=== PATIENT | male | born 1945 | race Caucasian/White ===

== ENCOUNTER → 2018-06-25 | Outpatient (CLI) | payer MEDICARE, OTHER ==
[~2018-06-25] MED LIST: ASP325T PO; CHOL200018 PO; CYAN50TA PO; FOLI0.4T2 PO; IOHEXOL 350 MG/ML 150 ML (OMNIPAQUE 350) VIAL IV ONE; LYCO15CA PO; NS 100 ML (IVPB) BAG IV ONE; RECEIVED CONTRAST (Hold Metformin) IV SCH; ZINC50TA49 PO
[2018-06-25 10:46] LABS: BUN/CREATININE RATIO 18; CREATININE SERUM 1.07 MG/DL (0.60-1.30); GFR ESTIMATED > 60
--- NOTE | 2018-06-25 11:38 | Diagnostic Imaging Report ---
PROCEDURE: CT angiography of the chest with contrast. TECHNIQUE: Multiple contiguous axial images were obtained through the chest after uneventful bolus administration of intravenous contrast. 2D reconstructed CTA MIP acquisitions were also performed. INDICATION: Aortic stenosis. COMPARISON: Study compared to 08/20/2015. FINDINGS: Ascending aorta measures maximal transverse diameter of 3.7 cm, unchanged. Takeoff of the great vessels and arch as well as descending thoracic aorta are normal in caliber. No mural hemorrhage, dissection, or rupture. There are calcifications of the aortic valvular leaflets as well as of the mitral annulus. Heart size is within normal limits. There is suggestion of some thickening of the left ventricular myocardium. No effusion or pneumothorax. The upper abdominal aorta is patent and nonaneurysmal. 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 No mass, infiltrate, or edema. There is no thoracic lymphadenopathy. No acute chest wall abnormality. IMPRESSION: Stable chronic findings. Dictated by: Dictated on workstation # [id number]
--- NOTE | 2018-06-25 13:15 | Diagnostic Imaging Report ---
EXAMINATION: CTA of the neck with contrast. INDICATION: Aortic stenosis. TECHNIQUE: Routine images of the carotid and vertebral systems were obtained following administration of intravenous contrast. Axial images were taken from the midportion of the skull to the lung apices. Sagittal and coronal reconstructed images were also performed. MIP images were obtained as well. COMPARISON: There are no prior studies available for comparison. FINDINGS: The sagittal images do show that there is an 80-90% stenosis of the proximal internal carotid artery on the right. This appears to be primarily due to soft plaque formation. The length of the stenosis is roughly 8 mm. There is also atherosclerotic plaque and mild narrowing of the proximal internal carotid artery on the left. There is no hemodynamically significant stenosis in this area, however. There is no other hemodynamically significant stenosis of the common or internal carotid arteries. Both vertebral arteries were opacified. The vertebral arteries do appear to be codominant. The intracranial circulation was not visualized in its entirety. Where visualized, there is no abnormality. There is no mass or adenopathy in the neck. The thyroid gland is not enlarged, but there do appear to be several small nodules in each lobe including a 7 mm nodule in the right lobe. These findings may be secondary to a multinodular goiter. Ultrasound would be recommended to better characterize these findings. The lung apices are clear. The bone windows show no evidence for a fracture or for a destructive lesion. IMPRESSION: 1. There is an 80-90% stenosis of the proximal internal carotid artery on the right. This appears to be due to soft plaque formation alone. 2. There is atherosclerotic disease involving the proximal internal carotid artery on the left, but there is no hemodynamically significant stenosis identified. 3. The vertebral arteries are codominant. 4. The intracranial circulation where visualized is unremarkable. 5. The thyroid gland is not enlarged, but the nodules within the gland do raise a question of a multinodular goiter. Ultrasound would be recommended for further study. Dictated by: Dictated on workstation # [id number]
== END ==
LOC: RAD 10:18
PROVIDERS: ATTEND Internal Medicine Cardiovascular Disease
DX: I35.0 Nonrheumatic aortic (valve) stenosis (principal); I65.23 Occlusion and stenosis of bilateral carotid arteries; E04.2 Nontoxic multinodular goiter; I77.810 Thoracic aortic ectasia; I10 Essential (primary) hypertension
CPT/HCPCS: 36415; 70498; 71275; 82565; 84520; 93306

== ENCOUNTER → 2018-07-02 | Outpatient (CLI) | payer MEDICARE, OTHER ==
[~2018-07-02] MED LIST changes: +CATHETER FLUSH 10 ML SYR IV PRN; -IOHEXOL 350 MG/ML 150 ML (OMNIPAQUE 350) VIAL IV ONE; -NS 100 ML (IVPB) BAG IV ONE; -RECEIVED CONTRAST (Hold Metformin) IV SCH; +REGADENOSON 0.4 MG/5 ML SYR (LEXISCAN) IV ONE
[2018-07-02 09:46] VITALS: BP 104/70
[2018-07-02 09:49] VITALS: BP 121/67
--- NOTE | 2018-07-02 14:43 | STRESS TEST ---
DATE OF SERVICE: 07/02/2018 LEXISCAN MYOVIEW STRESS TEST Baseline heart rate is 57. Baseline blood pressure 104/70. Baseline EKG is sinus rhythm with no ischemic changes. In summary, the patient was injected with 10.01 mCi of technetium-99 Myoview and the resting images were obtained. Then, the patient received 0.4 mg of Lexiscan followed by 32.0 mCi of technetium-99 Myoview. Throughout the test, there were no EKG changes. The resting and stress images were reviewed and compared in the short axis, horizontal long axis, and vertical long axis views. Review of the images showed mild apical thinning with no significant ischemia or infarction on SPECT images. SSS is 3, SDS 3, TID value 0.97. On the gated images, the left ventricle appeared to be in normal size with normal contractility. Calculated ejection fraction 52%. CONCLUSION: 1. The patient tolerated Lexiscan well. 2. No ischemia or infarction on SPECT images. 3. Normal left ventricular size with normal contractility. Calculated ejection fraction 52%. Job ID: [id number] DocumentID: [id number] Dictated Date: 07/02/2018 12:15:59 [employer] Date: 07/02/2018 14:42:53 Dictated By: SHARI HAZEL MD
== END ==
LOC: CARD 08:11
PROVIDERS: ATTEND Internal Medicine Cardiovascular Disease
DX: I35.0 Nonrheumatic aortic (valve) stenosis (principal); I10 Essential (primary) hypertension; I77.810 Thoracic aortic ectasia
CPT/HCPCS: 78452; 93017

== ENCOUNTER 2018-07-22 13:35 | Emergency (ER) | payer MEDICARE, OTHER ==
[~2018-07-22] VITALS: Ht 170.2 cm; Wt 85.3 kg
[~2018-07-22 13:35] MED LIST changes: -CATHETER FLUSH 10 ML SYR IV PRN; -REGADENOSON 0.4 MG/5 ML SYR (LEXISCAN) IV ONE
--- NOTE | 2018-07-22 13:40 | NUR ---
Attempted to call patient back. Pt in restroom.
--- OUTSIDE RECORDS SUMMARY | 2018-07-22 13:40 | XMS REPORT | CCD ---
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 Name Role Phone PP Unavailable CCM Unavailable Summary Purpose Interface Exchange Insurance Providers Payer name Policy type / Coverage type Covered democrat ID Effective Begin Date Effective End Date WPS Medicare Part B Medicare Part B [id number] Unknown Unknown Cigna Medicare Part B [id number] Unknown Unknown Family history Mother Diagnosis Age At Onset Arthritis Unknown Cancer Unknown Father Diagnosis Age At Onset Coronary Artery Disease Unknown Alcoholism Unknown Social History Social History Element Codes Description Effective Dates Marital status Unknown Tami 05/01/2018 Number of children Unknown 1 05/01/2018 Employment Unknown 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/[address]: 7471494 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 1964 05/01/[address]: 966620447 Never drinks alcohol 05/01/2018 Allergies, Adverse Reactions, Alerts Substance Reaction Codes Entered Date Inactivated Date Status Tomatoes Unknown 05/01/2018 No Inactive Date Active * NO KNOWN DRUG ALLERGIES Unknown 05/01/2018 No Inactive Date Active Past Medical History Illness Codes Condition Status Onset Date Resolved Date Cardiac murmur, unspecified ICD-9: 785.2 ICD-10: R01.1 Active 05/01/2018 Unknown 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 Active 05/01/2018 Unknown Other specified symptoms and signs involving the circulatory and respiratory systems ICD-9: 785.9 ICD-10: R09.89 Active 05/01/2018 Unknown Personal history of other diseases of the circulatory system ICD-9: V12.59 ICD-10: Z86.79 Active 05/01/2018 Unknown Problems Condition Codes Effective Dates Condition Status Cardiac murmur, unspecified ICD-9: 785.2 ICD-10: R01.1 05/01/2018 Active 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 05/01/2018 Active Other specified symptoms and signs involving the circulatory and respiratory systems ICD-9: 785.9 ICD-10: R09.89 05/01/2018 Active Personal history of other diseases of the circulatory system ICD-9: V12.59 ICD-10: Z86.79 05/01/2018 Active Medications Medication Codes Instructions Start Date Stop Date Status Fill Instructions folic acid 1 mg tablet RxNorm: 459632 1 Tablet(s) PO daily No Start Date Active magnesium oxide 250 mg tablet RxNorm: 927787 1 Tablet(s) PO daily No Start Date Active garlic 1,000 mg capsule RxNorm: 301082 1 Capsule(s) PO daily as needed No Start Date Active zinc 50 mg tablet RxNorm: 1 Tablet(s) PO daily No Start Date Active melatonin 10 mg tablet RxNorm: 1837161 1 Tablet(s) PO daily No Start Date Active Vitamin D3 5,000 unit tablet RxNorm: 655076 1 Tablet(s) PO daily No Start Date Active cyanocobalamin (vit B-12) 5,000 mcg sublingual tablet RxNorm: 272197 1 Tablet(s) SL daily No Start Date Active Medication Administered No Medication Administered data Immunizations No Immunization data Assessments Condition Codes Effective Dates 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 ICD-9: 327.01 05/01/2018 Personal history of other diseases of the circulatory system ICD-10: Z86.79 ICD-9: V12.59 05/01/2018 Other specified symptoms and signs involving the circulatory and respiratory systems ICD-10: R09.89 ICD-9: 785.9 05/01/2018 Cardiac murmur, unspecified ICD-10: R01.1 ICD-9: 785.2 05/01/2018 Reason For Visit Reason For Visit Effective Dates Notes abdominal pain 05/01/2018 Results No Results data Review of Systems System Result Effective Dates Constitutional No recent illness 2017 Constitutional No chills 05/01/2018 Constitutional No fatigue 05/01/2018 Constitutional No fever 05/01/2018 Constitutional No insomnia 05/01/2018 Constitutional No malaise 05/01/2018 Eyes No vision change 05/01/2018 Ears/Nose/Throat/Neck No dental pain 08/2017 Ears/Nose/Throat/Neck No dizziness 2017 Ears/Nose/Throat/Neck No dysphagia 2017 Ears/Nose/Throat/Neck No headache 2017 Ears/Nose/Throat/Neck No hearing loss 08/2017 Ears/Nose/Throat/Neck No nasal allergies 05/01/2018 Ears/Nose/Throat/Neck No sore throat 08/2017 Ears/Nose/Throat/Neck No postnasal drip 05/01/2018 Ears/Nose/Throat/Neck No sinus congestion 05/01/2018 Cardiovascular No chest pain/pressure 08/2017 Cardiovascular No dyspnea 05/01/2018 Cardiovascular No edema 05/01/2018 Cardiovascular No exercise intolerance Cardiovascular No fatigue 05/01/2018 Cardiovascular No near-syncope/dizziness 05/01/2018 Respiratory No chest tightness 2017 Respiratory No cough 05/01/2018 Respiratory No dyspnea 05/01/2018 Respiratory No pedal edema 05/01/2018 Gastrointestinal No abdominal pain 2017 Gastrointestinal No constipation 2017 Gastrointestinal No diarrhea 05/01/2018 Gastrointestinal No gastroesophageal reflux 05/01/2018 Gastrointestinal No nausea 05/01/2018 Gastrointestinal No vomiting 05/01/2018 Genitourinary/Nephrology No dysuria 05/01 Genitourinary/Nephrology No nocturia 08/2017 Genitourinary/Nephrology No urinary incontinence 05/01/2018 Musculoskeletal No stiffness 05/01/2018 Musculoskeletal No swelling 05/01/2018 Musculoskeletal No muscle weakness 2017 Musculoskeletal No myalgias 05/01/2018 Dermatologic No rash 05/01/2018 Dermatologic No sores 05/01/2018 Neurologic No dizziness 05/01/2018 Neurologic No headache 05/01/2018 Neurologic No neck pain 05/01/2018 Neurologic No syncope 05/01/2018 Psychiatric No anxiety 05/01/2018 Psychiatric No depression 05/01/2018 Physical Exam Exam Name System Name Item Name Status Result Effective Dates Notes Full Exam - General 1994 Constitutional general appearance Development: well developed 05/01/2018 None Full Exam - General 1994 Constitutional general appearance Development: appears stated age 1205/01/2018 None Full Exam - General 1994 Constitutional general appearance Hygiene/Attention to Grooming: good hygiene 05/01/2018 None Full Exam - General 1994 Eyes conjunctiva /eyelids Overall: conjunctiva clear 05/01/2018 None Full Exam - General 1994 Eyes conjunctiva /eyelids Overall: cornea clear 05/01/2018 None Full Exam - General 1994 Eyes conjunctiva /eyelids Overall: eyelids normal 05/01/2018 None Full Exam - General 1994 Eyes pupils and irises Overall: pupils equal, round, reactive to light and accomodation 05/01/2018 None Full Exam - General 1994 Ears/Nose/Throat otoscopic exam Overall: external auditory canals clear 05/01/2018 None Full Exam - General 1994 Ears/Nose/Throat otoscopic exam Overall: tympanic membranes clear 05/01/2018 None Full Exam - General 1994 Ears/Nose/Throat lips/teeth/gingiva Overall: benign lips 05/01/2018 None Full Exam - General 1994 Ears/Nose/Throat lips/teeth/gingiva Overall: normal dentition 05/01/2018 None Full Exam - General 1994 Ears/Nose/Throat oral cavity/pharynx/larynx Overall: oral mucosa clear 05/01/2018 None Full Exam - General 1994 Ears/Nose/Throat oral cavity/pharynx/larynx Overall: oropharyngeal mucosa clear 05/01/2018 None Full Exam - General 1994 Ears/Nose/Throat oral cavity/pharynx/larynx Overall: hypopharynx benign 05/01/2018 None Full Exam - General 1994 Ears/Nose/Throat oral cavity/pharynx/larynx Overall: no masses 05/01/2018 None Full Exam - General 1994 Respiratory auscultation Overall: breath sounds clear bilaterally 05/01/2018 None Full Exam - General 1994 Respiratory respiratory effort/rhythm Overall: no retractions 05/01/2018 None Full Exam - General 1994 Respiratory respiratory effort/rhythm Overall: normal rate 05/01/2018 None Full Exam - General 1994 Cardiovascular extremities Overall: no clubbing 05/01/2018 None Full Exam - General 1994 Cardiovascular auscultation of heart Overall: regular rate 05/01/2018 None Full Exam - General 1994 Abdomen abdominal exam Overall: no tenderness 05/01/2018 None Full Exam - General 1994 Abdomen abdominal exam Overall: normal bowel sounds 05/01/2018 None Full Exam - General 1994 Lymphatic neck nodes Overall: anterior cervical chain benign 05/01/2018 None Full Exam - General 1994 Lymphatic neck nodes Overall: posterior cervical chain benign 05/01/2018 None Full Exam - General 1994 Musculoskeletal spine, ribs and pelvis Overall: spine benign 05/01/2018 None Full Exam - General 1994 Musculoskeletal spine, ribs and pelvis Overall: sacroiliac joint benign 05/01/2018 None Full Exam - General 1994 Musculoskeletal spine, ribs and pelvis Overall: good posture 05/01/2018 None Full Exam - General 1994 Musculoskeletal head and neck Overall: head atraumatic 05/01/2018 None Full Exam - General 1994 Musculoskeletal head and neck Overall: cervical spine benign 05/01/2018 None Full Exam - General 1994 Integument inspection of skin Overall: few scattered moles, no gross abnormalities 05/01/2018 None Full Exam - General 1994 Neurologic deep tendon reflexes Overall: deep tendon reflexes intact 05/01/2018 None Full Exam - General 1994 Neurologic cranial nerves Overall: crainial nerves 2 - 12 grossly intact 05/01/2018 None Full Exam - General 1994 Psychiatric orientation/consciousness Overall: oriented to person, place and time 05/01/2018 None Full Exam - General 1994 Psychiatric mood and affect Overall: normal mood and affect 05/01/2018 None Full Exam - General 1994 Cardiovascular auscultation of heart Systolic murmur: holosystolic 05/01/2018 None Full Exam - General 1994 Cardiovascular auscultation of heart Systolic murmur grade: IV/ 05/01/2018 None Full Exam - General 1994 Cardiovascular inspection of carotid pulses Carotid pulse: carotid bruit 05/01/2018 None Procedures No Procedures data Vital Signs Date Vital 05/01/2018 Blood Pressure 1: 138/88 Code : 8480-6 BMI: 29.5 Code : 15736-9 Heart Rate 1 : 74 bpm Height: 5'8" SpO2: 95% Weight: 194 lbs Functional Status No Functional Status data History of Present Illness Symptom Name Status Result Effective Date Notes Quality intermittent 05/01/2018 None Onset of Symptom 3 years ago 05/01/2018 None Pertinent Findings Denies fever 05/01/2018 None Quality intermittent 05/01/2018 heart murmur- reports has had all his life Onset and Resolution ongoing 05/01/2018 None Onset of Symptom Denies _ years ago 05/01/2018 None Onset of Symptom Denies during childhood 05/01/2018 None Frequency of Episodes daily 05/01/2018 None Pertinent Findings Denies dizziness 05/01/2018 None Pertinent Findings Denies dyspnea 05/01/2018 None Pertinent Findings Denies lightheadedness 05/01/2018 None Pertinent Findings Denies syncope 05/01/2018 None Advance Directives No Advance Directive data Encounters Encounter Performer Location Codes Date () OFFICE VISIT, NEW - LEVEL 4 Diagnosis: Personal history of other diseases of the circulatory system[ICD10: Z86.79] Diagnosis: Cardiac murmur, unspecified[ICD10: R01.1] Diagnosis: Other specified symptoms and signs involving the circulatory and respiratory systems[ICD10: R09.89] Diagnosis: Insomnia due to medical condition[ICD10: G47.01] Delmi Can MD, [facility] CPT-4: 58974 05/01/2018 Plan of Care Planned Activity Notes Codes Status Date Visit Plan: Heart murmur - loud - best heart at upper right and left sternal borders - Carotid bruit - I have recommended the following testing: echo, carotid, I also recommend that he has an appt with Dr. Mesa. Insomnia - continue with melatonin. 05/01/2018 Visit Plan: Heart murmur - loud - best heart at upper right and left sternal borders - Carotid bruit - I have recommended the following testing: echo, carotid, I also recommend that he has an appt with Dr. Mesa. Insomnia - continue with melatonin. 05/01/2018 Appointment: Delmi Can WPtel: [address] [place], [place] [phone] New Patient 05/01/2018 Patient Education: Patient Medication Summary Completed 05/01/2018 Care Plan: Comp Metabolic Pending 05/01/2018 Care Plan: Cbc With Differential Pending 05/01/2018 Care Plan: Tsh Pending 05/01/2018 Care Plan: Lipid Pending 05/01/2018 Care Plan: Total Psa Pending 05/01/2018 Care Plan: Referral Order SNOMED-CT : [id number] Pending 05/01/2018 Referral: Yesenia Mesa Referral Appointment Requested Instructions Comment . Heart murmur - loud - best heart at upper right and left sternal borders - Carotid bruit - I have recommended the following testing: echo, carotid, I also recommend that he has an appt with Dr. Mesa. Insomnia - continue with melatonin. . Heart murmur - loud - best heart at upper right and left sternal borders - Carotid bruit - I have recommended the following testing: echo, carotid, I also recommend that he has an appt with Dr. Mesa. Insomnia - continue with melatonin.
--- OUTSIDE RECORDS SUMMARY | 2018-07-22 13:40 | XMS REPORT | Continuity of Care Document ---
Author Author [facility] Organization [facility] Address Unknown Phone Unavailable Allergies Active Description Code Type Severity Reaction Onset Reported/Identified Relationship to Patient Clinical Status Yes No Known Drug Allergies [id number] Drug Allergy Unknown N/A 07/27/2013 Medications There is no data. Problems Date Dx Coded Attending Type Code Diagnosis Diagnosed By 07/27/2013 APARNA OLSEN, LUIZA Pacheco Ot 569.3 RECTAL ANAL HEMORRHAGE 07/29/2013 BARRY OLSEN, TREVIN Mott Ot 530.11 REFLUX ESOPHAGITIS 07/29/2013 TREVIN REDDY MD Ot 530.3 ESOPHAGEAL STRICTURE 07/29/2013 TREVIN REDDY MD Ot 535.40 OTH SPECIFIED GASTRITIS,W/O MENTION OF H 07/29/2013 TREVIN REDDY MD Ot 562.10 DIVERTICULOSIS COLON (W/O MENT OF HEMORR 07/29/2013 TREVIN REDDY MD Ot V12.72 PERSONAL HISTORY OF COLONIC POLYPS 08/01/2013 TREVIN REDDY MD Ot 562.10 DIVERTICULOSIS COLON (W/O MENT OF HEMORR 08/01/2013 TREVIN REDDY MD Ot 569.49 RECTAL ANAL DIS NEC 08/01/2013 TREVIN REDDY MD Ot V16.0 FAMILY HX-GI MALIGNANCY 08/20/2015 TREVIN REDDY MD Ot V72.84 08/21/2015 MATA HAILE Ot I77.810 08/21/2015 MATA HAILE Ot Z13.9 09/09/2015 MATA HAILE Ot I77.810 09/09/2015 MATA HAILE Ot Z13.9 06/21/2018 TREVIN REDDY MD Ot V72.84 EXAM PRE-OPERATIVE NOS 06/21/2018 MATA HAILE Ot 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 06/21/2018 MATA HAILE Ot Z13.9 ENCOUNTER FOR SCREENING, UNSPECIFIED 06/22/2018 BARRY OLSEN, TREVIN S Ot V72.84 EXAM PRE-OPERATIVE NOS 06/22/2018 MATA HAILE Ot 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 06/22/2018 MATA HAILE Ot Z13.9 ENCOUNTER FOR SCREENING, UNSPECIFIED 06/26/2018 SHARI HAZEL MD Ot E04.2 NONTOXIC MULTINODULAR GOITER 06/26/2018 SHARI HAZEL MD Ot I10 ESSENTIAL (PRIMARY) HYPERTENSION 06/26/2018 SHARI HAZEL MD Ot I35.0 NONRHEUMATIC AORTIC (VALVE) STENOSIS 06/26/2018 SHARI HAZEL MD Ot 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 06/26/2018 SHARI HAZEL MD Ot 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 07/04/2018 SHARI HAZEL MD Ot I10 ESSENTIAL (PRIMARY) HYPERTENSION 07/04/2018 SHARI HAZEL MD Ot I35.0 NONRHEUMATIC AORTIC (VALVE) STENOSIS 07/04/2018 SHARI HAZEL MD Ot 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 07/05/2018 BARRY OLSEN, TREVIN S Ot V72.84 EXAM PRE-OPERATIVE NOS 07/05/2018 MATA HAILE Ot 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 07/05/2018 MATA HAILE Ot Z13.9 ENCOUNTER FOR SCREENING, UNSPECIFIED 07/05/2018 SHARI HAZEL MD Ot E04.2 NONTOXIC MULTINODULAR GOITER 07/05/2018 SHARI HAZEL MD Ot I10 ESSENTIAL (PRIMARY) HYPERTENSION 07/05/2018 SHARI HAZEL MD Ot I35.0 NONRHEUMATIC AORTIC (VALVE) STENOSIS 07/05/2018 SHARI HAZEL MD Ot 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 07/05/2018 SHARI HAZEL MD Ot 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 07/05/2018 SHARI HAZEL MD Ot I10 ESSENTIAL (PRIMARY) HYPERTENSION 07/05/2018 SHARI HAZEL MD Ot I35.0 NONRHEUMATIC AORTIC (VALVE) STENOSIS 07/05/2018 SHARI HAZEL MD Ot 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 07/05/2018 BARRY OLSEN, TREVIN S Ot V72.84 EXAM PRE-OPERATIVE NOS 07/05/2018 MATA HAILE Ot 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 07/05/2018 MATA HAILE Ot Z13.9 ENCOUNTER FOR SCREENING, UNSPECIFIED 07/05/2018 SHARI HAZEL MD Ot E04.2 NONTOXIC MULTINODULAR GOITER 07/05/2018 SHARI HAZEL MD Ot I10 ESSENTIAL (PRIMARY) HYPERTENSION 07/05/2018 SHARI HAZEL MD Ot I35.0 NONRHEUMATIC AORTIC (VALVE) STENOSIS 07/05/2018 SHARI HAZEL MD Ot 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 07/05/2018 SHARI HAZEL MD Ot 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 07/05/2018 SHARI HAZEL MD Ot I10 ESSENTIAL (PRIMARY) HYPERTENSION 07/05/2018 SHARI HAZEL MD Ot I35.0 NONRHEUMATIC AORTIC (VALVE) STENOSIS 07/05/2018 SHARI HAZEL MD Ot 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 07/05/2018 SHARI HAZEL MD Ot E04.2 NONTOXIC MULTINODULAR GOITER 07/05/2018 SHARI HAZEL MD Ot I10 ESSENTIAL (PRIMARY) HYPERTENSION 07/05/2018 SHARI HAZEL MD Ot I35.0 NONRHEUMATIC AORTIC (VALVE) STENOSIS 07/05/2018 SHARI HAZEL MD Ot 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 Results Test Result Range [id number] - 06/25/18 10:25 Serum or plasma urea nitrogen measurement (mass/volume) 19 mg/dL 7-18 Serum or plasma creatinine measurement (mass/volume) 1.07 mg/dL 0.60-1.30 Serum or plasma urea nitrogen/creatinine mass ratio 18 NRG Serum or plasma creatinine measurement with calculation of estimated glomerular filtration rate > NRG Encounters ACCT No. Visit Date/Time Discharge Status Pt. Type Provider Facility Loc./Unit Complaint [id number] 07/02/2018 08:11:00 07/02/2018 23:59:59 CLS Outpatient SHARI HAZEL MD [facility] CARD AORTIC STENOSIS,HTN [id number] 06/25/2018 10:18:00 06/25/2018 23:59:59 CLS Outpatient SHARI HAZEL MD [facility] RAD AORTIC STENOSIS [id number] 05/24/2018 15:10:00 05/24/2018 23:59:59 CLS Preadmit SHARI HAZEL MD [facility] RAD CAROTID STENOSIS, BILATERAL [id number] 05/24/2018 14:43:00 05/24/2018 23:59:59 CLS Preadmit SHARI HAZEL MD [facility] CARD CARDIAC MURMUR [id number] 08/20/2015 11:05:00 08/20/2015 23:59:59 CLS Outpatient MATA HAILE [facility] RAD DILATED THORACIC AORTA,SCREENING [id number] 08/01/2013 08:44:00 08/01/2013 11:35:00 DIS Outpatient TREVIN REDDY MD [facility] SD BLOOD IN STOOLS [id number] 07/31/2013 07:16:00 07/31/2013 23:59:59 CLS Outpatient TREVIN REDDY MD [facility] PREOP BLOOD IN STOOLS [id number] 07/29/2013 11:01:00 07/29/2013 15:00:00 DIS Outpatient TREVIN REDDY MD [facility] GI BLEED [id number] 07/27/2013 08:35:00 07/27/2013 10:44:00 DIS Emergency APARNA OLSEN, LUIZA Pacheco [facility] ER BLOODY STOOLS [id number] 04/20/2018 13:12:01 04/20/2018 23:59:59 CLS Outpatient
--- OUTSIDE RECORDS SUMMARY | 2018-07-22 13:40 | XMS REPORT | CCD ---
Author Author [facility]mi [facility] Organization [facility] Address [address] [place] [address] Phone Care Team Providers Care Seamer Elastic Band Name Role Phone PP Unavailable CCM Unavailable Summary Purpose Interface Exchange Insurance Providers Payer name Policy type / Coverage type Covered alliance party ID Effective Begin Date Effective End Date WPS Medicare Part B Medicare Part B [id number] Unknown Unknown Cigna Medicare Part B [id number] Unknown Unknown Family history Mother Diagnosis Age At Onset Arthritis Unknown Cancer Unknown Father Diagnosis Age At Onset Coronary Artery Disease Unknown Alcoholism Unknown Social History Social History Element Codes Description Effective Dates Marital status Unknown Tami 05/01/2018 Number of children Unknown 1 05/01/2018 Employment Unknown 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/[address]: 3576471 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 1965 05/01/[address]: 566588515 Never drinks alcohol 05/01/2018 Allergies, Adverse Reactions, Alerts Substance Reaction Codes Entered Date Inactivated Date Status Tomatoes Unknown 05/01/2018 No Inactive Date Active * NO KNOWN DRUG ALLERGIES Unknown 05/01/2018 No Inactive Date Active Past Medical History Illness Codes Condition Status Onset Date Resolved Date Mixed hyperlipidemia ICD-9: 272.2 ICD-10: E78.2 Active 06/05/2018 Unknown Cardiac murmur, unspecified ICD-9: 785.2 ICD-10: R01.1 Active 05/01/2018 Unknown 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 Active 05/01/2018 Unknown Other specified symptoms and signs involving the circulatory and respiratory systems ICD-9: 785.9 ICD-10: R09.89 Active 05/01/2018 Unknown Personal history of other diseases of the circulatory system ICD-9: V12.59 ICD-10: Z86.79 Active 05/01/2018 Unknown Problems Condition Codes Effective Dates Condition Status Mixed hyperlipidemia ICD-9: 272.2 ICD-10: E78.2 06/05/2018 Active Cardiac murmur, unspecified ICD-9: 785.2 ICD-10: R01.1 05/01/2018 Active 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 05/01/2018 Active Other specified symptoms and signs involving the circulatory and respiratory systems ICD-9: 785.9 ICD-10: R09.89 05/01/2018 Active Personal history of other diseases of the circulatory system ICD-9: V12.59 ICD-10: Z86.79 05/01/2018 Active Medications Medication Codes Instructions Start Date Stop Date Status Fill Instructions pravastatin 20 mg tablet RxNorm: 046288 1 Tablet(s) PO daily 12/31/2018 Active folic acid 1 mg tablet RxNorm: 783647 1 Tablet(s) PO daily No Start Date Active magnesium oxide 250 mg tablet RxNorm: 641885 1 Tablet(s) PO daily No Start Date Active garlic 1,000 mg capsule RxNorm: 922256 1 Capsule(s) PO daily as needed No Start Date Active zinc 50 mg tablet RxNorm: 1 Tablet(s) PO daily No Start Date Active melatonin 10 mg tablet RxNorm: 5771668 1 Tablet(s) PO daily No Start Date Active Vitamin D3 5,000 unit tablet RxNorm: 695293 1 Tablet(s) PO daily No Start Date Active cyanocobalamin (vit B-12) 5,000 mcg sublingual tablet RxNorm: 556186 1 Tablet(s) SL daily No Start Date Active Medication Administered No Medication Administered data Immunizations No Immunization data Assessments Condition Codes Effective Dates Mixed hyperlipidemia ICD-10: E78.2 ICD-9: 272.2 06/05/2018 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 ICD-9: 327.01 05/01/2018 Personal history of other diseases of the circulatory system ICD-10: Z86.79 ICD-9: V12.59 05/01/2018 Other specified symptoms and signs involving the circulatory and respiratory systems ICD-10: R09.89 ICD-9: 785.9 05/01/2018 Cardiac murmur, unspecified ICD-10: R01.1 ICD-9: 785.2 05/01/2018 Reason For Visit Reason For Visit Effective Dates Notes abdominal pain 06/05/2018 abdominal pain 05/01/2018 Results Observation Observation Code Item Item Code Result Date Tsh Ord6 TSH (3rd IS) 1.30 uIU/mL 05/02/2018 Total Psa Ord10 PSA 1.85 ng/mL 05/02/2018 Lipid Ord30 CHOL 219 mg/dL 05/02/2018 Lipid Ord30 HDL 34.0 mg/dl 05/02/2018 Lipid Ord30 TRIG 161 mg/dL 05/02/2018 Lipid Ord30 LDL 153 mg/dL 05/02/2018 Lipid Ord30 C/HDL 6.4 Ratio 05/02/2018 Comp Metabolic Cpr265 NA 140 mEq/L 05/02/2018 Comp Metabolic Npk139 K 4.6 mEq/L 05/02/2018 Comp Metabolic Qid059 CL 105 mEq/L 05/02/2018 Comp Metabolic Wpl675 CO2 27.0 mEq/L 05/02/2018 Comp Metabolic Vbf055 ANION GAP 13 05/02/2018 Comp Metabolic Jbv467 GLUCOSE 117 mg/dL 05/02/2018 Comp Metabolic Mfr368 Creat 1.0 mg/dL 05/02/2018 Comp Metabolic Dge722 eGFR 80 ml/min/1.73m2 05/02/2018 Comp Metabolic Mkq419 BUN 17 mg/dL 05/02/2018 Comp Metabolic Iln100 B/C Ratio 17.3 Ratio 05/02/2018 Comp Metabolic Szj861 CALCIUM 9.6 mg/dL 05/02/2018 Comp Metabolic Xjy162 ALK PHOS 40 U/L 05/02/2018 Comp Metabolic Jjg559 AST(SGOT) 19 U/L 05/02/2018 Comp Metabolic Hfq611 ALT(SGPT) 24 U/L 05/02/2018 Comp Metabolic Bcw222 BILI T 0.7 mg/dL 05/02/2018 Comp Metabolic Kpw496 ALBUMIN 4.2 g/dL 05/02/2018 Comp Metabolic Vje288 TPRO 6.4 g/dL 05/02/2018 Comp Metabolic Xxo631 GLOB 2.2 g/dL 05/02/2018 Comp Metabolic Sou826 A/G Ratio 1.9 Ratio 05/02/2018 Comp Metabolic Soj407 Osmo 282 mOsmo 05/02/2018 Cbc With Differential Ord2 WBC 8.47 K/ul 05/02/2018 Cbc With Differential Ord2 RBC 5.40 M/ul 05/02/2018 Cbc With Differential Ord2 HGB 16.4 g/dl 05/02/2018 Cbc With Differential Ord2 HCT 48.4 % 05/02/2018 Cbc With Differential Ord2 Neut% 69.3 % 05/02/2018 Cbc With Differential Ord2 MCV 89.6 fl 05/02/2018 Cbc With Differential Ord2 Lymph% 23.4 % 05/02/2018 Cbc With Differential Ord2 MCH 30.4 pg 05/02/2018 Cbc With Differential Ord2 [place]% 6.1 % 05/02/2018 Cbc With Differential Ord2 Eos% 0.5 % 05/02/2018 Cbc With Differential Ord2 MCHC 33.9 pg 05/02/2018 Cbc With Differential Ord2 PLT 170 K/ul 05/02/2018 Cbc With Differential Ord2 Baso% 0.7 % 05/02/2018 Cbc With Differential Ord2 Neut ABS# 5.87 K/ul 05/02/2018 Cbc With Differential Ord2 RDW 13.2 % 05/02/2018 Cbc With Differential Ord2 Lymph ABS# 1.98 K/ul 05/02/2018 Cbc With Differential Ord2 [place] ABS# 0.5 K/ul 05/02/2018 Cbc With Differential Ord2 Eos ABS# 0.0 K/ul 05/02/2018 Cbc With Differential Ord2 Baso ABS# 0.1 K/ul 05/02/2018 Review of Systems System Result Effective Dates Constitutional No recent illness 2018 Constitutional No chills 06/05/2018 Constitutional No fatigue 06/05/2018 Constitutional No fever 06/05/2018 Constitutional No insomnia 06/05/2018 Constitutional No malaise 06/05/2018 Eyes No vision change 06/05/2018 Ears/Nose/Throat/Neck No dental pain 12/2018 Ears/Nose/Throat/Neck No dizziness 2018 Ears/Nose/Throat/Neck No dysphagia 2018 Ears/Nose/Throat/Neck No headache 2018 Ears/Nose/Throat/Neck No hearing loss 12/2018 Ears/Nose/Throat/Neck No nasal allergies 06/05/2018 Ears/Nose/Throat/Neck No sore throat 12/2018 Ears/Nose/Throat/Neck No postnasal drip 06/05/2018 Ears/Nose/Throat/Neck No sinus congestion 06/05/2018 Cardiovascular No chest pain/pressure 12/2018 Cardiovascular No dyspnea 06/05/2018 Cardiovascular No edema 06/05/2018 Cardiovascular No exercise intolerance Cardiovascular No fatigue 06/05/2018 Cardiovascular No near-syncope/dizziness 06/05/2018 Respiratory No chest tightness 2018 Respiratory No cough 06/05/2018 Respiratory No dyspnea 06/05/2018 Respiratory No pedal edema 06/05/2018 Gastrointestinal No abdominal pain 2018 Gastrointestinal No constipation 2018 Gastrointestinal No diarrhea 06/05/2018 Gastrointestinal No gastroesophageal reflux 06/05/2018 Gastrointestinal No nausea 06/05/2018 Gastrointestinal No vomiting 06/05/2018 Genitourinary/Nephrology No dysuria 06/05 Genitourinary/Nephrology No nocturia 12/2018 Genitourinary/Nephrology No urinary incontinence 06/05/2018 Musculoskeletal No stiffness 06/05/2018 Musculoskeletal No swelling 06/05/2018 Musculoskeletal No muscle weakness 2018 Musculoskeletal No myalgias 06/05/2018 Dermatologic No rash 06/05/2018 Dermatologic No sores 06/05/2018 Neurologic No dizziness 06/05/2018 Neurologic No headache 06/05/2018 Neurologic No neck pain 06/05/2018 Neurologic No syncope 06/05/2018 Psychiatric No anxiety 06/05/2018 Psychiatric No depression 06/05/2018 Constitutional No recent illness 2017 Constitutional No [...] 1994 Constitutional general appearance Development: well developed 06/05/2018 None Full Exam - General 1994 Constitutional general appearance Development: appears stated age 0106/05/2018 None Full Exam - General 1994 Constitutional general appearance Hygiene/Attention to Grooming: good hygiene 06/05/2018 None Full Exam - General 1994 Eyes conjunctiva /eyelids Overall: conjunctiva clear 06/05/2018 None Full Exam - General 1994 Eyes conjunctiva /eyelids Overall: cornea clear 06/05/2018 None Full Exam - General 1994 Eyes conjunctiva /eyelids Overall: eyelids normal 06/05/2018 None Full Exam - General 1994 Eyes pupils and irises Overall: pupils equal, round, reactive to light and accomodation 06/05/2018 None Full Exam - General 1994 Ears/Nose/Throat otoscopic exam Overall: external auditory canals clear 06/05/2018 None Full Exam - General 1994 Ears/Nose/Throat otoscopic exam Overall: tympanic membranes clear 06/05/2018 None Full Exam - General 1994 Ears/Nose/Throat lips/teeth/gingiva Overall: benign lips 06/05/2018 None Full Exam - General 1994 Ears/Nose/Throat lips/teeth/gingiva Overall: normal dentition 06/05/2018 None Full Exam - General 1994 Ears/Nose/Throat oral cavity/pharynx/larynx Overall: oral mucosa clear 06/05/2018 None Full Exam - General 1995 Ears/Nose/Throat oral cavity/pharynx/larynx Overall: oropharyngeal mucosa clear 06/05/2018 None Full Exam - General 1994 Ears/Nose/Throat oral cavity/pharynx/larynx Overall: hypopharynx benign 06/05/2018 None Full Exam - General 1994 Ears/Nose/Throat oral cavity/pharynx/larynx Overall: no masses 06/05/2018 None Full Exam - General 1994 Respiratory auscultation Overall: breath sounds clear bilaterally 06/05/2018 None Full Exam - General 1994 Respiratory respiratory effort/rhythm Overall: no retractions 06/05/2018 None Full Exam - General 1994 Respiratory respiratory effort/rhythm Overall: normal rate 06/05/2018 None Full Exam - General 1994 Cardiovascular extremities Overall: no clubbing 06/05/2018 None Full Exam - General 1994 Cardiovascular auscultation of heart Overall: regular rate 06/05/2018 None Full Exam - General 1994 Cardiovascular auscultation of heart Systolic murmur: holosystolic 06/05/2018 None Full Exam - General 1994 Cardiovascular auscultation of heart Systolic murmur grade: IV/ 06/05/2018 None Full Exam - General 1994 Abdomen abdominal exam Overall: no tenderness 06/05/2018 None Full Exam - General 1994 Abdomen abdominal exam Overall: normal bowel sounds 06/05/2018 None Full Exam - General 1994 Musculoskeletal spine, ribs and pelvis Overall: spine benign 06/05/2018 None Full Exam - General 1994 Musculoskeletal spine, ribs and pelvis Overall: sacroiliac joint benign 06/05/2018 None Full Exam - General 1994 Musculoskeletal spine, ribs and pelvis Overall: good posture 06/05/2018 None Full Exam - General 1994 Musculoskeletal head and neck Overall: head atraumatic 06/05/2018 None Full Exam - General 1994 Musculoskeletal head and neck Overall: cervical spine benign 06/05/2018 None Full Exam - General 1994 Neurologic cranial nerves Overall: crainial nerves 2 - 12 grossly intact 06/05/2018 None Full Exam - General 1994 Psychiatric orientation/consciousness Overall: oriented to person, place and time 06/05/2018 None Full Exam - General 1994 Psychiatric mood and affect Overall: normal mood and affect 06/05/2018 None Full Exam - General 1994 Constitutional [...] No Procedures data Vital Signs Date Vital 06/05/2018 Blood Pressure 1: 142/66 Code : 8480-6 BMI: 30.0 Code : 16565-9 Heart Rate 1 : 75 bpm Height: 5'8" SpO2: 98% Weight: 197 lbs 05/01/2018 Blood Pressure 1: 138/88 Code : 8480-6 BMI: 29.5 Code : 74682-2 Heart Rate 1 : 74 bpm Height: 5'8" SpO2: 95% Weight: 194 lbs Functional Status No Functional Status data History of Present Illness Symptom Name Status Result Effective Date Notes Quality intermittent 06/05/2018 None Onset of Symptom 3 years ago 06/05/2018 None Pertinent Findings Denies fever 06/05/2018 None Quality intermittent 06/05/2018 heart murmur- reports has had all his life Onset and Resolution ongoing 06/05/2018 None Onset of Symptom Denies _ years ago 06/05/2018 None Onset of Symptom Denies during childhood 06/05/2018 None Frequency of Episodes daily 06/05/2018 None Pertinent Findings Denies dizziness 06/05/2018 None Pertinent Findings Denies dyspnea 06/05/2018 None Pertinent Findings Denies lightheadedness 06/05/2018 None Pertinent Findings Denies syncope 06/05/2018 None Quality intermittent 05/01/2018 None Onset of Symptom [...] data Encounters Encounter Performer Location Codes Date ([id number]) 12019 EST. PATIENT, LEVEL III Diagnosis: Mixed hyperlipidemia[ICD10: E78.2] [facility] CPT-4: 85578 06/05/2018 ([id number]) OFFICE VISIT, NEW - LEVEL 4 Diagnosis: Personal history of other diseases of the circulatory system[ICD10: Z86.79] Diagnosis: Cardiac murmur, unspecified[ICD10: R01.1] Diagnosis: Other specified symptoms and signs involving the circulatory and respiratory systems[ICD10: R09.89] Diagnosis: Insomnia due to medical condition[ICD10: G47.01] [facility] CPT-4: 10274 05/01/2018 Plan of Care Planned Activity Notes Codes Status Date Visit Plan: Hyperlipidemia - pt has been counseled about appropriate diet, exercise, and need for low fat food choices. I have discussed the need for the patient to take medications as prescribed. If the patient has negative side effects from the medication, they are to CALL the office and not abruptly discontinue the medication without discussion with a practitioner in the office. We will check labs in 3-6 months for follow up on the patient's chronic medical problem and to assure normal liver response to medications. pravastatin 20mg daily 06/05/2018 Patient Education: Patient Medication Summary Completed 06/05/2018 Patient Education: Cholesterol Management Completed 06/05/2018 Referral: Yesenia Mesa Referral Completed 05/24/2018 Visit Plan: Heart murmur - loud - [...] with melatonin. 05/01/2018 Appointment: Delmi Can WPtel: [address] [place], [place] [id number] New Patient 05/01/2018 Patient Education: Patient Medication Summary Completed 05/01/2018 Care Plan: Referral Order SNOMED-CT : 579036690 Pending 05/01/2018 Referral: Yesenia Mesa Referral Appointment Requested Instructions Comment . Hyperlipidemia - pt has been counseled about appropriate diet, exercise, and need for low fat food choices. I have discussed the need for the patient to take medications as prescribed. If the patient has negative side effects from the medication, they are to CALL the office and not abruptly discontinue the medication without discussion with a practitioner in the office. We will check labs in 3-6 months for follow up on the patient's chronic medical problem and to assure normal liver response to medications. pravastatin 20mg daily . Heart murmur - loud - best [...]
--- OUTSIDE RECORDS SUMMARY | 2018-07-22 13:40 | XMS REPORT | CCD ---
Author Author [facility] Organization [facility] Address [address] [place] [address] Phone Care Team Providers Care Rewinder Operator Name Role Phone PP Unavailable CCM Unavailable Summary Purpose Interface Exchange Insurance Providers Payer name Policy type / Coverage type Covered libertarian ID Effective Begin Date Effective End Date WPS Medicare Part B Medicare Part B [id number] Unknown Unknown Cigna Medicare Part B [id number] Unknown Unknown Family history Mother Diagnosis Age At Onset Arthritis Unknown Cancer Unknown Father Diagnosis Age At Onset Coronary Artery Disease Unknown Alcoholism Unknown Social History Social History Element Codes Description Effective Dates Marital status Unknown Tami 05/01/2018 Number of children Unknown 1 05/01/2018 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/[address]: 1468620 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 1965 05/01/[address]: 821030507 Never drinks alcohol 05/01/2018 Allergies, Adverse Reactions, [...] Instructions folic acid 1 mg tablet RxNorm: 832671 1 Tablet(s) PO daily No Start Date Active magnesium oxide 250 mg tablet RxNorm: 807682 1 Tablet(s) PO daily No Start Date Active garlic 1,000 mg capsule RxNorm: 224715 1 Capsule(s) PO daily as needed No Start Date Active zinc 50 mg tablet RxNorm: 1 Tablet(s) PO daily No Start Date Active melatonin 10 mg tablet RxNorm: 6863761 1 Tablet(s) PO daily No Start Date Active Vitamin D3 5,000 unit tablet RxNorm: 745013 1 Tablet(s) PO daily No Start Date Active cyanocobalamin (vit B-12) 5,000 mcg sublingual tablet RxNorm: 866098 1 Tablet(s) SL daily No Start Date [...] Code : 8480-6 BMI: 29.5 Code : 31556-7 Heart Rate 1 : 74 bpm Height: [...] to medical condition[ICD10: G47.01] [facility], [facility] CPT-4: 17472 05/01/2018 Plan of Care Planned Activity Notes Codes Status Date Visit Plan: Heart murmur - loud - best heart at upper right and left sternal borders - Carotid bruit - I have recommended the following testing: echo, carotid, I also recommend that he has an appt with Dr. Mesa. Insomnia - continue with melatonin. 05/01/2018 Patient Education: Patient Medication Summary Completed 05/01/2018 Care Plan: Comp Metabolic Pending 05/01/2018 Care Plan: Cbc With Differential Pending 05/01/2018 Care Plan: Tsh Pending 05/01/2018 Care Plan: Lipid Pending 05/01/2018 Care Plan: Total Psa Pending 05/01/2018 Care Plan: Referral Order SNOMED-CT : 788050151 Pending 05/01/2018 Referral: Yesenia Mesa Referral Appointment Requested Instructions Comment . Heart murmur - loud - best heart at upper right and left sternal borders - Carotid bruit - I have recommended the following testing: echo, carotid, I also recommend that he has an appt with Dr. Mesa. Insomnia - continue with melatonin.
--- OUTSIDE RECORDS SUMMARY | 2018-07-22 13:40 | XMS REPORT | CCD ---
Author Author Delmi Can Organization [facility], [facility] Address [address] [place] [address] Phone Care Team Providers Care Nuclear Equipment Operator Name Role Phone PP Unavailable CCM Unavailable Summary Purpose Interface Exchange Insurance Providers Payer name Policy type / Coverage type Covered republican ID Effective Begin Date Effective End Date [employer] Medicare Part B [id number] Unknown Family history Mother Diagnosis Age At Onset Arthritis Unknown Cancer Unknown Father Diagnosis Age At Onset Coronary Artery Disease Unknown Alcoholism Unknown Social History Social History Element Codes Description Effective Dates Marital status Unknown Tami 05/01/2018 Number of children Unknown 1 05/01/2018 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/[address]: 0812079 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 1965 05/01/[address]: 848425875 Never drinks alcohol 05/01/2018 Allergies, Adverse Reactions, [...] Start Date Stop Date Status Fill Instructions trazodone 50 mg tablet RxNorm: 228013 1/2-1 Tablet(s) PO QHS as needed 07/02/2018 08/30/2018 Active trazodone 50 mg tablet RxNorm: 403835 1/2-1 Tablet(s) PO QHS 07/01/2018 Inactive pravastatin 20 mg tablet RxNorm: 447752 1 Tablet(s) PO daily 12/31/2018 Active folic acid 1 mg tablet RxNorm: 534894 1 Tablet(s) PO daily No Start Date Active magnesium oxide 250 mg tablet RxNorm: 155262 1 Tablet(s) PO daily No Start Date Active garlic 1,000 mg capsule RxNorm: 866832 1 Capsule(s) PO daily as needed No Start Date Active zinc 50 mg tablet RxNorm: 1 Tablet(s) PO daily No Start Date Active melatonin 10 mg tablet RxNorm: 8344056 1 Tablet(s) PO daily No Start Date Active Vitamin D3 5,000 unit tablet RxNorm: 223579 1 Tablet(s) PO daily No Start Date Active cyanocobalamin (vit B-12) 5,000 mcg sublingual tablet RxNorm: 103287 1 Tablet(s) SL daily No Start Date [...] Ord30 C/HDL 6.4 Ratio 05/02/2018 Comp Metabolic Pqi610 NA 140 mEq/L 05/02/2018 Comp Metabolic Lfv329 K 4.6 mEq/L 05/02/2018 Comp Metabolic Dgy285 CL 105 mEq/L 05/02/2018 Comp Metabolic Vet918 CO2 27.0 mEq/L 05/02/2018 Comp Metabolic Zxj002 ANION GAP 13 05/02/2018 Comp Metabolic Ypr641 GLUCOSE 117 mg/dL 05/02/2018 Comp Metabolic Qav376 Creat 1.0 mg/dL 05/02/2018 Comp Metabolic Gty581 eGFR 80 ml/min/1.73m2 05/02/2018 Comp Metabolic Elr242 BUN 17 mg/dL 05/02/2018 Comp Metabolic Hdm608 B/C Ratio 17.3 Ratio 05/02/2018 Comp Metabolic Wdo761 CALCIUM 9.6 mg/dL 05/02/2018 Comp Metabolic Lyr903 ALK PHOS 40 U/L 05/02/2018 Comp Metabolic Tsp710 AST(SGOT) 19 U/L 05/02/2018 Comp Metabolic Qti536 ALT(SGPT) 24 U/L 05/02/2018 Comp Metabolic Ohk821 BILI T 0.7 mg/dL 05/02/2018 Comp Metabolic Bzp921 ALBUMIN 4.2 g/dL 05/02/2018 Comp Metabolic Wlb419 TPRO 6.4 g/dL 05/02/2018 Comp Metabolic Hlt168 GLOB 2.2 g/dL 05/02/2018 Comp Metabolic Slj578 A/G Ratio 1.9 Ratio 05/02/2018 Comp Metabolic Fux027 Osmo 282 mOsmo 05/02/2018 Cbc With Differential [...] 30.4 pg 05/02/2018 Cbc With Differential Ord2 [place]% 6.1 % 05/02/2018 Cbc With Differential Ord2 [...] 1.98 K/ul 05/02/2018 Cbc With Differential Ord2 [place] ABS# 0.5 K/ul 05/02/2018 Cbc With Differential [...] accomodation 06/05/2018 None Full Exam - General 1995 Ears/Nose/Throat otoscopic exam Overall: external auditory canals clear 06/05/2018 None Full Exam - General 1995 Ears/Nose/Throat otoscopic exam Overall: tympanic membranes clear 06/05/2018 None Full Exam - General 1995 Ears/Nose/Throat lips/teeth/gingiva Overall: benign lips 06/05/2018 None Full Exam - General 1995 Ears/Nose/Throat lips/teeth/gingiva Overall: normal dentition 06/05/2018 None Full Exam - General 1995 Ears/Nose/Throat oral cavity/pharynx/larynx Overall: oral mucosa clear 06/05/2018 None Full Exam - General 1995 Ears/Nose/Throat oral cavity/pharynx/larynx Overall: oropharyngeal mucosa clear 06/05/2018 None Full Exam - General 1995 Ears/Nose/Throat oral cavity/pharynx/larynx Overall: hypopharynx benign 06/05/2018 [...] Code : 8480-6 BMI: 30.0 Code : 26628-5 Heart Rate 1 : 75 bpm Height: 5'8" SpO2: 98% Weight: 197 lbs 05/01/2018 Blood Pressure 1: 138/88 Code : 8480-6 BMI: 29.5 Code : 77629-9 Heart Rate 1 : 74 bpm Height: [...] data Encounters Encounter Performer Location Codes Date ([id number]) 42539 EST. PATIENT, LEVEL III Diagnosis: Mixed hyperlipidemia[ICD10: E78.2] [facility] CPT-4: 86088 06/05/2018 ([id number]) OFFICE VISIT, NEW - LEVEL 4 Diagnosis: Personal history of other diseases of the circulatory system[ICD10: Z86.79] Diagnosis: Cardiac murmur, unspecified[ICD10: R01.1] Diagnosis: Other specified symptoms and signs involving the circulatory and respiratory systems[ICD10: R09.89] Diagnosis: Insomnia due to medical condition[ICD10: G47.01] [facility] CPT-4: 31382 05/01/2018 Plan of Care Planned Activity Notes [...] response to medications. pravastatin 20mg daily 06/05/2018 Appointment: [facility] WPtel: [address] [place] [address] (15 min) Moderate 06/05/2018 Patient Education: Patient Medication Summary Completed [...] with melatonin. 05/01/2018 Appointment: [facility] WPtel: [facility] New Patient 05/01/2018 Patient Education: Patient Medication Summary Completed 05/01/2018 Care Plan: Referral Order SNOMED-CT : 147832566 Pending 05/01/2018 Referral: Yesenia Mesa Referral Appointment [...]
--- NOTE | 2018-07-22 14:08 | ED GI ---
General Chief Complaint: Rect Problems Stated Complaint: BLOOD IN STOOL History of Present Illness Date Seen by Provider: Jul 22, 2018 Time Seen by Provider: 13:55 Initial Comments 72 -year-old male presents 30 minutes after having a loose stool with acute blood noted. He denies any abdominal pain, nausea or vomiting. He had a similar episode in 2013, followed by a colonoscopy which showed mild diverticulitis. He denies any hemorrhoids. Patient's has a picture of the toilet with the bloody stool and a small sample and his appointment back, bright red blood on her toilet tissue. Timing/Duration: 1/2 Hour Allergies and Home Medications Allergies Coded Allergies: No Known Drug Allergies (Unverified , 07/27/13) Home Medications Aspirin 325 Mg Tab, 325 MG PO PRN, (Reported) Cholecalciferol (Vitamin D3) 2,000 Unit Capsule, 2,000 UNIT PO THREE TIMES WEEKLY, (Reported) Cyanocobalamin 50 Mcg Tablet, 1,000 MCG PO THREE TIMES WEEKLY, (Reported) Folic Acid 0.4 Mg Tablet, 0.4 MG PO THREE TIMES WEEKLY, (Reported) Lycopene 15 Mg Capsule, 15 MG PO THREE TIMES WEEKLY, (Reported) Zinc Amino Acid Chelate 50 Mg Tablet, 50 MG PO THREE TIMES WEEKLY, (Reported) Patient Home Medication List Home Medication List Reviewed: Yes Review of Systems Review of Systems Constitutional: no symptoms reported, see HPI Gastrointestinal: See HPI, Blood Streaked Stools; Denies Diarrhea, Denies Nausea, Denies Poor Appetite, Denies Poor Fluid Intake, Denies Rectal Bleeding All Other Systems Reviewed Negative Unless Noted: Yes Past Lmuvyqr-Nclkmz-Pbonkr Hx Past Med/Social Hx: Reviewed Nursing Past Med/Soc Hx Patient Social History Recent Foreign Travel: No Contact w/Someone Who Travel: No Immunizations Up To Date Date of Influenza Vaccine: Mar 29, 2013 Physical Exam Vital Signs Vital Signs - First Documented 07/22/18 13:45 Temp 97.1 Pulse 91 Resp 14 B/P (MAP) 153/92 (112) Pulse Ox 94 O2 Delivery Room Air Capillary Refill : Height/Weight/BMI Height: 5'8.00" Weight: 200lbs. oz. 90.114610lq; BMI Method:Stated General Appearance: WD/WN, no apparent distress Respiratory: chest non-tender, lungs clear, normal breath sounds Gastrointestinal: normal bowel sounds, non tender, soft; No distended, No guarding, No rebound, No tenderness Neurologic/Psychiatric: no motor/sensory deficits, alert, normal mood/affect, oriented x 3 Skin: normal color, warm/dry Lymphatic: no adenopathy Progress/Results/Core Measures Results/Orders My Orders Vital Signs/I&O 07/22/18 07/22/18 13:45 14:20 Temp 97.1 97.1 Pulse 91 79 Resp 14 14 B/P (MAP) 153/92 (112) 153/86 (108) Pulse Ox 94 94 O2 Delivery Room Air Room Air Progress Progress Note : Time: 13:55 Progress Note Patient seen and evaluated, discussed findings with the patient and his . Recommended clear liquid diet for the next 6-8 hours. To follow-up with Dr. Can or general surgeon if symptoms are not improving or worsen. He recently restarted taking aspirin we'll have him hold aspirin until follow-up. Departure Impression Primary Impression: Hematochezia Disposition: HOME, SELF-CARE Condition: Improved Departure-Patient Inst. Decision time for Depature: 14:10 Referrals: CARMELA CAN MD (PCP/Family) Primary Care Physician Patient Instructions: Bloody Stools, Adult (DC) Add. Discharge Instructions: Clear liquid diet for the next 6-8 hours then bland diet as tolerated. Continue your home medications. Follow-up with Dr. Can if symptoms are not improving or worsen. Consider evaluation by general surgeon for colonoscopy (Manuel Altman or [facility]). Return to emergency department for worsening of symptoms, fever greater than 101 , acute abdominal pain with associated nausea and vomiting, or new concerns. All discharge instructions reviewed with patient and/or family. Voiced understanding. Copy Copies To 1: CARMELA CAN MD, AMY ARNP Jul 22, 2018 14:08
[2018-07-22 14:20] VITALS: BP 153/86
[2018-07-22] MEDS ORDERED: METR500T PO (22:23)
[2018-07-22] MEDS ORDERED: PANT40TA2 PO (22:23)
[2018-07-22] MEDS ORDERED: CIPR-225 PO (22:23)
== END 2018-07-22 14:20 | disposition home or self-care (01) ==
LOC: EDUNIT# 13:35 → ER 13:36
DX: K92.1 Melena (principal); Z79.82 Long term (current) use of aspirin
CPT/HCPCS: 99282

== ENCOUNTER 2018-07-22 19:27 | Emergency (ER) | payer MEDICARE ==
[~2018-07-22] VITALS: Ht 170.2 cm; Wt 85.3 kg
--- OUTSIDE RECORDS SUMMARY | 2018-07-22 19:39 | XMS REPORT | Continuity of Care Document ---
Author Author [facility] Organization [facility] Address Unknown Phone Unavailable Allergies Active Description Code Type Severity Reaction Onset Reported/Identified Relationship to Patient Clinical Status Yes No Known Drug Allergies [id number] Drug Allergy Unknown N/A 07/27/2013 Medications There [...] Ot I65.23 OCCLUSION AND STENOSIS OF BILATERAL [place] 07/05/2018 SHARI HAZEL MD Ot I77.810 THORACIC [...] is no data. Results Test Result Range [id number] - 06/25/18 10:25 Serum or plasma urea nitrogen measurement (mass/volume) 19 mg/dL 7-18 Serum or plasma creatinine measurement (mass/volume) 1.07 mg/dL 0.60-1.30 Serum or plasma urea nitrogen/creatinine mass ratio 18 NRG Serum or plasma creatinine measurement with calculation of estimated glomerular filtration rate > NRG Encounters ACCT No. Visit Date/Time Discharge Status Pt. Type Provider Facility Loc./Unit Complaint [id number] 07/02/2018 08:11:00 07/02/2018 23:59:59 CLS Outpatient SHARI HAZEL MD [facility] CARD AORTIC STENOSIS,HTN [id number] 06/25/2018 10:18:00 06/25/2018 23:59:59 CLS Outpatient SHARI HAZEL MD [facility] RAD AORTIC STENOSIS [id number] 05/24/2018 15:10:00 05/24/2018 23:59:59 CLS Preadmit SHARI HAZEL MD [facility] RAD CAROTID STENOSIS, BILATERAL [id number] 05/24/2018 14:43:00 05/24/2018 23:59:59 CLS Preadmit SHARI HAZEL MD [facility] CARD CARDIAC MURMUR [id number] 08/20/2015 11:05:00 08/20/2015 23:59:59 CLS Outpatient MATA HAILE [facility] RAD DILATED THORACIC AORTA,SCREENING [id number] 08/01/2013 08:44:00 08/01/2013 11:35:00 DIS Outpatient TREVIN REDDY MD [facility] SD BLOOD IN STOOLS [id number] 07/31/2013 07:16:00 07/31/2013 23:59:59 CLS Outpatient TREVIN REDDY MD [facility] PREOP BLOOD IN STOOLS [id number] 07/29/2013 11:01:00 07/29/2013 15:00:00 DIS Outpatient TREVIN REDDY MD [facility] GI BLEED [id number] 07/27/2013 08:35:00 07/27/2013 10:44:00 DIS Emergency APARNA OLSEN, LUIZA Pacheco [facility] ER BLOODY STOOLS [id number] 04/20/2018 13:12:01 04/20/2018 23:59:59 CLS Outpatient
[2018-07-22] MEDS ORDERED: SUCRALFATE 1 GM (CARAFATE) TAB PO ONE (19:45)
[2018-07-22 20:13] LABS: CLARITY,URINE SLIGHTLY CLOUDY; COLOR,URINE AMBER; GLUCOSE, URINE (UA) NEGATIVE (NEGATIVE); KETONES,URINE 2+ (NEGATIVE); LEUKOCYTE ESTERASE ,URINE 1+ (NEGATIVE); NITRITE,URINE NEGATIVE (NEGATIVE); PH,URINE 5 (5-9); PROTEIN,URINE 2+ (NEGATIVE); UROBILINOGEN,URINE 1 MG/DL (NORMAL)
[2018-07-22 20:22] LABS: BASOPHILS % (AUTO) 0 % (0-10); EOSINOPHILS % (AUTO) 0 % (0-10); HEMATOCRIT 42 % (40-54); HEMOGLOBIN 14.7 G/DL (13.3-17.7); LYMPHOCYTES # (AUTO) 1.3 X 10^3 (1.0-4.0); LYMPHOCYTES % (AUTO) 10 % (12-44); MEAN CORPUSCULAR HEMOGLOBIN 30 PG (25-34); MEAN CORPUSCULAR HGB CONC 35 G/DL (32-36); MEAN CORPUSCULAR VOLUME 88 FL (80-99); MEAN PLATELET VOLUME 12.2 FL (7.4-10.4); MONOCYTES # (AUTO) 0.8 X 10^3 (0.0-1.0); MONOCYTES % (AUTO) 6 % (0-12); NEUTROPHILS # (AUTO) 10.7 X 10^3 (1.8-7.8); NEUTROPHILS % (AUTO) 83 % (42-75); PLATELET COUNT 177 10^3/uL (130-400); RED CELL DISTRIBUTION WIDTH 12.5 % (10.0-14.5); WHITE BLOOD COUNT 12.9 10^3/uL (4.3-11.0)
[2018-07-22 20:23] LABS: BACTERIA,URINE TRACE /HPF; BILIRUBIN,URINE 2+ (NEGATIVE); RBC,URINE RARE /HPF; WHITE BLOOD CELL CASTS, URINE RARE /LPF
[2018-07-22 20:41] LABS: ALANINE AMINOTRANSFERASE 16 U/L (0-55); ALBUMIN 3.9 GM/DL (3.2-4.5); ALKALINE PHOSPHATASE 60 U/L (40-136); BILIRUBIN,TOTAL 0.7 MG/DL (0.1-1.0); BUN/CREATININE RATIO 20; CALCIUM 9.4 MG/DL (8.5-10.1); CARBON DIOXIDE 23 MMOL/L (21-32); CHLORIDE 102 MMOL/L (98-107); CREATININE SERUM 1.06 MG/DL (0.60-1.30); GFR ESTIMATED > 60; GLUCOSE 128 MG/DL (70-105); POTASSIUM 4.2 MMOL/L (3.6-5.0); SODIUM 137 MMOL/L (135-145); TOTAL PROTEIN 6.9 GM/DL (6.4-8.2)
[2018-07-22] MEDS ORDERED: DIPHENOXYLATE/ATROPINE 2.5MG/0.025MG (LOMOTIL) TAB PO STA (20:42)
[2018-07-22] MEDS ORDERED: D5 NS 1000 ML IV SOLUTION 1,000 ML IV ONE (20:55)
[2018-07-22] MEDS ORDERED: PANTOPRAZOLE 40 MG (PROTONIX) VIAL IV ONE (21:00)
--- NOTE | 2018-07-22 22:13 | Diagnostic Imaging Report ---
PROCEDURE: CT abdomen and pelvis with contrast. TECHNIQUE: Multiple contiguous axial images were obtained through the abdomen and pelvis after administration of intravenous contrast. INDICATION: Abdominal pain. COMPARISON: None. FINDINGS: Included portions of the lung bases are clear. CT abdomen: Diffuse colonic diverticulosis. Note is made of somewhat thickened appearance of the wall of the sigmoid colon. There is, however, no significant stranding of the pericolic fat surrounding the sigmoid colon. Note is also made of focal abnormal thickened appearance to the wall of the ascending colon (image 38, series 2). There is also moderate stranding of the pericolonic fat within this area. This appears to be epicentered around a diverticulum of the ascending colon. There is no pneumatosis, pneumoperitoneum or portal venous gas. Normal appendix is identified. Small bowel loops are nondistended. Fat-containing umbilical hernia is noted. Ostomy measures 1.9 cm in diameter. Benign-appearing right renal cyst is noted. Otherwise, the kidneys, adrenal glands, spleen, pancreas, and liver have a normal CT appearance. There is no free fluid or loculated air-fluid collection within the abdomen. A few scattered prominent, yet subcentimeter, mesenteric lymph nodes are noted, particularly within the left upper abdominal quadrant. There is also slight stranding of the mesenteric fat in this area. No abnormal retrotracheal adenopathy is seen. There is moderate calcified aortic and arterial atherosclerosis. CT pelvis: Urinary bladder is grossly unremarkable. Prostate is mildly enlarged. It measures 5.9 x 4.5 cm in axial dimension. There is no loculated fluid collection, free fluid or free air within the pelvis. No abnormal lymph nodes are seen. Bony structures show no acute abnormality IMPRESSION: 1. Diffuse colonic diverticulosis with probable acute diverticulitis of the ascending colon. Please note, however, that colonic malignancy may present in a similar manner. Correlation with colonoscopy is recommended when clinically appropriate. 2. Thickened appearance of the wall of the sigmoid colon. This may be on the basis of chronic recurrent diverticulitis. Again, however, underlying malignancy may present in a similar manner. 3. A few scattered prominent appearing, yet subcentimeter mesenteric lymph nodes with mild stranding of the mesenteric fat in the left upper abdominal quadrant. Findings are nonspecific, but can be seen with underlying mesenteric adenitis/panniculitis. Dictated by: Dictated on workstation # [id number]
[2018-07-22] MEDS ORDERED: METR500T PO (22:23)
[2018-07-22] MEDS ORDERED: PANT40TA2 PO (22:23)
[2018-07-22] MEDS ORDERED: CIPR-225 PO (22:23)
[2018-07-22] MEDS ORDERED: CIPROFLOXACIN 500 MG (CIPRO) TABLET PO STA (22:24)
[2018-07-22] MEDS ORDERED: RX-DIPHENO./ATROP. 2.5/0.25 MG (LOMOTIL) TAB PPK#4 PO STA (22:24)
[2018-07-22] MEDS ORDERED: metroNIDAZOLE 500 MG (FLAGYL) TAB PO STA (22:24)
--- NOTE | 2018-07-22 22:24 | ED GI ---
General Chief Complaint: Rect Problems Stated Complaint: BLOOD IN STOOL Nursing Triage Note: Pt seen earlier today in ED for blood in stool. Pt returned stating pt has had 22 episodes of blood in stool since pt left ED earlier today. Pt also reports abdominal pain has resolved since earlier today. Sepsis Screen: No Definite Risk History of Present Illness Date Seen by Provider: Jul 22, 2018 Time Seen by Provider: 20:05 Initial Comments 72-year-old male was seen earlier today here for similar symptoms. He reports continued episodes of GI bleeding, at least 10 episodes.. He denies any abdominal pain. He has maintained clear liquid diet. He denies any nausea or vomiting. Timing/Duration: 12 Hours Severity/Quality: Mild Radiation: No Radiation Modifying Factors: Improves With Defecating Associated Symptoms: Denies Symptoms Allergies and Home Medications Allergies Coded Allergies: No Known Drug Allergies (Unverified , 07/27/13) Home Medications Aspirin 325 Mg Tab, 325 MG PO PRN, (Reported) Cholecalciferol (Vitamin D3) 2,000 Unit Capsule, 2,000 UNIT PO THREE TIMES WEEKLY, (Reported) Ciprofloxacin HCl 500 Mg Tablet, 500 MG PO BID Prescribed by: MARCO DURAN on 07/22/182222 Cyanocobalamin 50 Mcg Tablet, 1,000 MCG PO THREE TIMES WEEKLY, (Reported) Folic Acid 0.4 Mg Tablet, 0.4 MG PO THREE TIMES WEEKLY, (Reported) Lycopene 15 Mg Capsule, 15 MG PO THREE TIMES WEEKLY, (Reported) Metronidazole 500 Mg Tablet, 500 MG PO BID Prescribed by: MARCO DURAN on 07/22/182222 Pantoprazole Sodium 40 Mg Tablet.dr, 40 MG PO DAILY Prescribed by: MARCO DURAN on 07/22/182222 Zinc Amino Acid Chelate 50 Mg Tablet, 50 MG PO THREE TIMES WEEKLY, (Reported) Patient Home Medication List Home Medication List Reviewed: Yes Review of Systems Review of Systems Constitutional: no symptoms reported, see HPI Gastrointestinal: See HPI, Blood Streaked Stools All Other Systems Reviewed Negative Unless Noted: Yes Past Cbysgab-Ficglr-Xnpakf Hx Past Med/Social Hx: Reviewed Nursing Past Med/Soc Hx Patient Social History Alcohol Use: Denies Use Recreational Drug Use: No 2nd Hand Smoke Exposure: No Recent Foreign Travel: No Contact w/Someone Who Travel: No Recent Infectious Disease Expo: No Recent Hopitalizations: No Physical Abuse: No Sexual Abuse: No Immunizations Up To Date Date of Influenza Vaccine: Mar 29, 2013 Seasonal Allergies Seasonal Allergies: No Past Medical History Surgeries: No Respiratory: No Cardiac: Yes (ath. sclerosis, stenosis of aortic vavle) Heart Murmur Neurological: No Gastrointestinal: No Musculoskeletal: No Endocrine: No HEENT: No Cancer: No Psychosocial: No Integumentary: No Physical Exam Vital Signs Vital Signs - First Documented 07/22/18 20:00 Temp 97.2 Pulse 88 Resp 16 B/P (MAP) 140/79 (99) Pulse Ox 96 O2 Delivery Room Air Capillary Refill : Less Than 3 Seconds Height/Weight/BMI Height: 5'7.00" Weight: 188lbs. oz. 85.889600ak; 30.41 BMI Method:Stated General Appearance: WD/WN, no apparent distress HEENT: PERRL/EOMI, normal ENT inspection, TMs normal, pharynx normal Neck: non-tender, full range of motion, supple, normal inspection Respiratory: chest non-tender, lungs clear, normal breath sounds Cardiovascular: normal peripheral pulses, regular rate, rhythm Gastrointestinal: normal bowel sounds, non tender, soft; No guarding, No rebound, No tenderness, No mass, No hepatomegaly, No spleenomegaly Rectal: normal exam, normal rectal tone; No blood streaked stool, No hemorrhoids, No mass, No tenderness Extremities: normal range of motion, non-tender, normal inspection, normal capillary refill Neurologic/Psychiatric: no motor/sensory deficits, alert, normal mood/affect, oriented x 3 Skin: warm/dry, pallor Progress/Results/Core Measures Results/Orders Lab Results Laboratory Tests Test 07/22/18 20:05 07/22/18 20:15 Range/Units Urine Color YFN H Urine Clarity SLIGHTLY CLOUDY Urine pH 5 5-9 Urine Specific [place] 1.025 H 1.016-1.022 Urine Protein 2+ H NEGATIVE Urine Glucose (UA) NEGATIVE NEGATIVE Urine Ketones 2+ H NEGATIVE Urine Nitrite NEGATIVE NEGATIVE Urine Bilirubin 2+ H NEGATIVE Urine Urobilinogen 1 NORMAL MG/DL Urine Leukocyte Esterase 1+ H NEGATIVE Urine RBC (Auto) 1+ H NEGATIVE Urine RBC RARE /HPF Urine WBC 5-10 H /HPF Urine Crystals NONE /LPF Urine Bacteria TRACE /HPF Urine Casts PRESENT /LPF Urine Hyaline Casts 2-5 H /LPF Urine White Blood Cell Casts RARE H /LPF Urine Mucus LARGE H /LPF Urine Culture Indicated YES White Blood Count 12.9 H 4.3-11.0 10^3/uL Red Blood Count 4.84 4.35-5.85 10^6/uL Hemoglobin 14.7 13.3-17.7 G/DL Hematocrit 42 40-54 % Mean Corpuscular Volume 88 80-99 FL Mean Corpuscular Hemoglobin 30 25-34 PG Mean Corpuscular Hemoglobin Concent 35 32-36 G/DL Red Cell Distribution Width 12.5 10.0-14.5 % Platelet Count 177 130-400 10^3/uL Mean Platelet Volume 12.2 H 7.4-10.4 FL Neutrophils (%) (Auto) 83 H 42-75 % Lymphocytes (%) (Auto) 10 L 12-44 % Monocytes (%) (Auto) 6 0-12 % Eosinophils (%) (Auto) 0 0-10 % Basophils (%) (Auto) 0 0-10 % Neutrophils # (Auto) 10.7 H 1.8-7.8 X 10^3 Lymphocytes # (Auto) 1.3 1.0-4.0 X 10^3 Monocytes # (Auto) 0.8 0.0-1.0 X 10^3 Eosinophils # (Auto) 0.0 0.0-0.3 10^3/uL Basophils # (Auto) 0.0 0.0-0.1 10^3/uL Sodium Level 137 135-145 MMOL/L Potassium Level 4.2 3.6-5.0 MMOL/L Chloride Level 102 98-107 MMOL/L Carbon Dioxide Level 23 21-32 MMOL/L Anion Gap 12 5-14 MMOL/L Blood Urea Nitrogen 21 H 7-18 MG/DL Creatinine 1.06 0.60-1.30 MG/DL Estimat Glomerular Filtration Rate > 60 BUN/Creatinine Ratio 20 Glucose Level 128 H 70-105 MG/DL Calcium Level 9.4 8.5-10.1 MG/DL Corrected Calcium 9.5 8.5-10.1 MG/DL Total Bilirubin 0.7 0.1-1.0 MG/DL Aspartate Amino Transf (AST/SGOT) 17 5-34 U/L Alanine Aminotransferase (ALT/SGPT) 16 0-55 U/L Alkaline Phosphatase 60 40-136 U/L Total Protein 6.9 6.4-8.2 GM/DL Albumin 3.9 3.2-4.5 GM/DL My Orders Orders - MARCO DURANP Cbc With Automated Diff (07/22/18 19:33) Comprehensive Metabolic Panel (07/22/18 19:33) Ua Culture If Indicated (07/22/18 19:33) Sucralfate Tablet (Carafate Tablet) (07/22/18 19:45) Urine Culture (07/22/18 20:05) Diphenoxylate/Atropine Tablet (Lomotil T (07/22/18 20:42) Saline Lock/Iv-Start (07/22/18 20:55) D5 Ns 1000 Ml Iv Solution (Dextrose 5%/0 (07/22/18 20:55) Pantoprazole Injection (Protonix Injecti (07/22/18 21:00) Ct Abdomen/Pelvis W (07/22/18 21:00) Metronidazole Tablet (Flagyl Tablet) (07/22/18 22:24) Rx-Diphenoxylate/Atropine (Rx-Lomotil 2. (07/22/18 22:24) Ciprofloxacin Tablet (Cipro Tablet) (07/22/18 22:24) Medications Given in ED Current Medications Medications Dose Ordered Sig/Florinda Route Start Time Stop Time Status Last Admin Dose Admin Dextrose/Sodium Chloride 1,000 ml @ 0 mls/hr Q0M ONCE IV 07/22/18 20:55 07/22/18 20:57 DC 07/22/18 21:26 1,000 MLS/HR Pantoprazole 40 mg ONCE ONCE IV 07/22/18 21:00 07/22/18 21:01 DC 07/22/18 21:26 40 MG Vital Signs/I&O 07/22/18 07/22/18 20:00 22:45 Temp 97.2 97.2 Pulse 88 86 Resp 16 16 B/P (MAP) 140/79 (99) 109/69 (82) Pulse Ox 96 97 O2 Delivery Room Air Room Air Blood Pressure Mean: 99 Progress Progress Note : Time: 20:05 Progress Note Patient seen and evaluated, will obtain labs, IV fluid D5 normal saline 1 L, and Carafate. 2100 hemoglobin and hematocrit stable, in no signs of anemia. The patient has had no episodes of hematochezia since admission. Will obtain CT of the abdomen. 2130 CT evidence of diverticulosis. Patient continues to be stable with no complaints of abdominal pain. Protonix 20 mg IV 2199 discussed findings with patient of CT and labs. Will begin treatment with Cipro and Flagyl. Discharge instructions and return precautions reviewed with the patient. All questions answered. 2214 patient had 2 episodes of hematochezia, since discussing labs. Will continue to monitor the patient. Blood pressure and pulse stable. 2229 discussed recommendation for transfer to [place] as we are currently on diversion. The patient does not wish to have a transfer to [place], although he understands the risks versus benefits that I discussed with him in detail. We will continue to monitor him here, he is taking ice chips. His IV has been discontinued and he does not wish to have it reinserted at this time. He continues to have no abdominal pain. 2299 the patient has had no further GI bleeding. Blood pressure continues to be stable. He is taking ice chips and water with no nausea or vomiting. He denies abdominal pain. 0 blood pressure 112/78, pulse 75. No further hematochezia, abdominal exam soft, nontender, positive bowel sounds 4 quadrants. Patient wishes to return home, if symptoms worsen or return he understands it would require transfer to [place]. The risks versus benefits were discussed at length. Discharge instructions and return precautions reviewed. Diagnostic Imaging Plain Films/CT/US/NM/MRI: abdomen, pelvis Comments NAME: ZULEIKA BENSON MED REC#: [id number] PT STATUS: REG ER : 1945 PHYSICIAN: MARCO DURANP ADMIT DATE: 07/22/18/ER Draft Date of Exam:07/22/18 CT ABDOMEN/PELVIS W PROCEDURE: CT abdomen and pelvis with contrast. TECHNIQUE: Multiple contiguous axial images were obtained through the abdomen and pelvis after administration of intravenous contrast. INDICATION: Abdominal pain. COMPARISON: None. FINDINGS: Included portions of the lung bases are clear. CT abdomen: Diffuse colonic diverticulosis. Note is made of somewhat thickened appearance of the wall of the sigmoid colon. There is, however, no significant stranding of the pericolic fat surrounding the sigmoid colon. Note is also made of focal abnormal thickened appearance to the wall of the ascending colon (image 38, series 2). There is also moderate stranding of the pericolonic fat within this area. This appears to be epicentered around a diverticulum of the ascending colon. There is no pneumatosis, pneumoperitoneum or portal venous gas. Normal appendix is identified. Small bowel loops are nondistended. Fat-containing umbilical hernia is noted. Ostomy measures 1.9 cm in diameter. Benign-appearing right renal cyst is noted. Otherwise, the kidneys, adrenal glands, spleen, pancreas, and liver have a normal CT appearance. There is no free fluid or loculated air-fluid collection within the abdomen. A few scattered prominent, yet subcentimeter, mesenteric lymph nodes are noted, particularly within the left upper abdominal quadrant. There is also slight stranding of the mesenteric fat in this area. No abnormal retrotracheal adenopathy is seen. There is moderate calcified aortic and arterial atherosclerosis. CT pelvis: Urinary bladder is grossly unremarkable. Prostate is mildly enlarged. It measures 5.9 x 4.5 cm in axial dimension. There is no loculated fluid collection, free fluid or free air within the pelvis. No abnormal lymph nodes are seen. Bony structures show no acute abnormality IMPRESSION: 1. Diffuse colonic diverticulosis with probable acute diverticulitis of the ascending colon. Please note, however, that colonic malignancy may present in a similar manner. Correlation with colonoscopy is recommended when clinically appropriate. 2. Thickened appearance of the wall of the sigmoid colon. This may be on the basis of chronic recurrent diverticulitis. Again, however, underlying malignancy may present in a similar manner. 3. A few scattered prominent appearing, yet subcentimeter mesenteric lymph nodes with mild stranding of the mesenteric fat in the left upper abdominal quadrant. Findings are nonspecific, but can be seen with underlying mesenteric adenitis/panniculitis. Dictated on workstation # [id number] Dict: 07/22/182 Trans: 07/22/183 [facility] [id number] Interpreted by: SUSANNE RIBEIRO MD Electronically signed by: Departure Impression Primary Impression: GI bleeding Qualified Codes: K92.2 - Gastrointestinal hemorrhage, unspecified Additional Impression: Diverticulosis of colon without diverticulitis Disposition: 01 HOME, SELF-CARE Condition: Improved Departure-Patient Inst. Decision time for Depature: 22:15 Referrals: CARMELA CAN MD (PCP/Family) Primary Care Physician Patient Instructions: Diverticulosis (DC), Gastrointestinal Bleeding (DC) Add. Discharge Instructions: Continue clear liquid diet. Call Dr. Can tomorrow for appointment and referral to general surgeon for colonoscopy. Take medication as prescribed. Return to emergency department for worsening of symptoms, fever greater than 101 , or new problems or concerns. All discharge instructions reviewed with patient and/or family. Voiced understanding. Scripts Ciprofloxacin HCl (Cipro) 500 Mg Tablet 500 MG PO BID, #14 TAB 0 Refills Prov: MARCO DURAN 07/22/18 Metronidazole (Flagyl) 500 Mg Tablet 500 MG PO BID, #14 TAB 0 Refills Prov: MARCO DURAN 07/22/18 Pantoprazole Sodium (Protonix) 40 Mg Tablet. 40 MG PO DAILY, #20 TAB 0 Refills Prov: MARCO DURAN 07/22/18 Copy Copies To 1: CARMELA CAN MD, AMY ARNP Jul 22, 2018 22:24
[2018-07-22 22:45] VITALS: BP 109/69
--- NOTE | 2018-07-22 22:45 | NUR ---
Pt discharged, however pt went to restroom prior to leaving ED. Upon exiting the restroom, pt reports having three additional episodes of blood and an episode of wretching. Pt denies vomiting and reports being able to keep down cipro and metronidazole. Pt very pale and reports feeling dizzy. Pt taken back to rm 5 and vitals rechecked. BP 121/67, HR 77. O2 95%. Hospital on diversion; Carmita Sanchez discussing with pt and pt's regarding transfer to [place].
== END 2018-07-23 00:35 | disposition home or self-care (01) ==
LOC: EDUNIT# 19:27 → ER 19:28
DX: K57.31 Diverticulosis of large intestine without perforation or abscess with bleeding (principal); Z79.82 Long term (current) use of aspirin
CPT/HCPCS: 36415; 74177; 80053; 81000; 85025; 87088; 96361; 96374

== ENCOUNTER 2018-08-01 05:56 | Outpatient (CLI) | payer MEDICARE ==
[~2018-08-01] VITALS: Ht 170.2 cm; Wt 85.3 kg
[~2018-08-01 05:56] MED LIST changes: +CIPR-225 PO; +METR500T PO; +PANT40TA2 PO
[2018-08-01] MEDS ORDERED: TRAZ-189 PO (14:27)
[2018-08-01] MEDS ORDERED: LISI10TA2 PO (14:27)
[2018-08-01] MEDS ORDERED: LEVO5TAB28 PO (14:27)
[2018-08-01] MEDS ORDERED: CETI10TA17 PO (14:27)
[2018-08-01] MEDS ORDERED: ROSU5TAB12 PO (14:27)
== END 2018-08-01 14:28 | disposition home or self-care (01) ==
LOC: PREOP 05:56
PROVIDERS: ATTEND Surgery
DX: Z01.818 Encounter for other preprocedural examination (principal)

== ENCOUNTER 2018-08-13 09:54 | Day surgery (SDC) | payer MEDICARE, OTHER ==
[~2018-08-13] VITALS: Ht 170.2 cm; Wt 85.3 kg
[~2018-08-13 09:54] MED LIST changes: +CETI10TA17 PO; +LEVO5TAB28 PO; +LISI10TA2 PO; +ROSU5TAB12 PO; +TRAZ-189 PO
--- OUTSIDE RECORDS SUMMARY | 2018-08-13 09:58 | XMS REPORT | CCD ---
Author Author [facility] Organization [facility] Address [address] [place] [address] Phone Care Team Providers Care Blocker Hand Name Role Phone PP Unavailable CCM Unavailable Summary Purpose Interface Exchange Insurance Providers Payer name Policy type / Coverage type Covered republican ID Effective Begin Date Effective End Date [employer] Medicare Part B [id number] Unknown Family history Mother Diagnosis Age At Onset Arthritis Unknown Cancer Unknown Father Diagnosis Age At Onset Coronary Artery Disease Unknown Alcoholism Unknown Social History Social History Element Codes Description Effective Dates Marital status Unknown Tami 05/01/2018 Number of children Unknown 1 05/01/2018 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 1965 05/01/[address]: 279607751 Never drinks alcohol 05/01/2018 Allergies, Adverse Reactions, Alerts Substance Reaction Codes Entered Date Inactivated Date Status Tomatoes Unknown 05/01/2018 No Inactive Date Active * NO KNOWN DRUG ALLERGIES Unknown 05/01/2018 No Inactive Date Active Past Medical History Illness Codes Condition Status Onset Date Resolved Date Diverticulitis of large intestine without perforation or abscess without bleeding ICD-9: 562.11 ICD-10: K57.32 Active 07/23/2018 Unknown Melena ICD-9: 578.1 ICD-10: K92.1 Active 07/23/2018 Unknown Mixed hyperlipidemia ICD-9: 272.2 ICD-10: E78.2 Active [...] Problems Condition Codes Effective Dates Condition Status Diverticulitis of large intestine without perforation or abscess without bleeding ICD-9: 562.11 ICD-10: K57.32 07/23/2018 Active Melena ICD-9: 578.1 ICD-10: K92.1 07/23/2018 Active Mixed hyperlipidemia ICD-9: 272.2 ICD-10: E78.2 06/05/2018 [...] Fill Instructions trazodone 50 mg tablet RxNorm: 662328 1/2-1 Tablet(s) PO QHS as needed 07/02/2018 08/30/2018 Active trazodone 50 mg tablet RxNorm: 695652 1/2-1 Tablet(s) PO QHS 07/01/2018 Inactive pravastatin 20 mg tablet RxNorm: 513314 1 Tablet(s) PO daily 07/03/2018 Inactive folic acid 1 mg tablet RxNorm: 755057 1 Tablet(s) PO daily No Start Date Active magnesium oxide 250 mg tablet RxNorm: 562242 1 Tablet(s) PO daily No Start Date Active garlic 1,000 mg capsule RxNorm: 363963 1 Capsule(s) PO daily as needed No Start Date Active zinc 50 mg tablet RxNorm: 1 Tablet(s) PO daily No Start Date Active melatonin 10 mg tablet RxNorm: 2640862 1 Tablet(s) PO daily No Start Date Active Vitamin D3 5,000 unit tablet RxNorm: 891241 1 Tablet(s) PO daily No Start Date Active cyanocobalamin (vit B-12) 5,000 mcg sublingual tablet RxNorm: 944476 1 Tablet(s) SL daily No Start Date Active Medication Administered No Medication Administered data Immunizations No Immunization data Assessments Condition Codes Effective Dates Melena ICD-10: K92.1 ICD-9: 578.1 07/23/2018 Diverticulitis of large intestine without perforation or abscess without bleeding ICD-10: K57.32 ICD-9: 562.11 07/23/2018 Mixed hyperlipidemia ICD-10: E78.2 ICD-9: 272.2 06/05/2018 Other specified symptoms and signs involving the circulatory and respiratory systems ICD-10: R09.89 ICD-9: 785.9 05/01/2018 Cardiac murmur, unspecified ICD-10: R01.1 ICD-9: 785.2 05/01/2018 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 ICD-9: 327.01 05/01/2018 Personal history of other diseases of the circulatory system ICD-10: Z86.79 ICD-9: V12.59 05/01/2018 Reason For Visit Reason For Visit Effective Dates Notes hematochezia 07/23/2018 abdominal pain 06/05/2018 abdominal pain 05/01/2018 Results Observation Observation Code Item Item Code Result Date Hgb & Hct Ord65 HGB 11.8 g/dl 07/27/2018 Hgb & Hct Ord65 HCT 35.3 % 07/27/2018 Tsh Ord6 TSH (3rd IS) 1.30 uIU/mL 05/02/2018 Total Psa Ord10 PSA 1.85 ng/mL 05/02/2018 Lipid Ord30 CHOL 219 mg/dL 05/02/2018 Lipid Ord30 HDL 34.0 mg/dl 05/02/2018 Lipid Ord30 TRIG 161 mg/dL 05/02/2018 Lipid Ord30 LDL 153 mg/dL 05/02/2018 Lipid Ord30 C/HDL 6.4 Ratio 05/02/2018 Comp Metabolic Tyi122 NA 140 mEq/L 05/02/2018 Comp Metabolic Okz856 K 4.6 mEq/L 05/02/2018 Comp Metabolic Vhc641 CL 105 mEq/L 05/02/2018 Comp Metabolic Mgu891 CO2 27.0 mEq/L 05/02/2018 Comp Metabolic Ldr172 ANION GAP 13 05/02/2018 Comp Metabolic Igq571 GLUCOSE 117 mg/dL 05/02/2018 Comp Metabolic Woc489 Creat 1.0 mg/dL 05/02/2018 Comp Metabolic Gap802 eGFR 80 ml/min/1.73m2 05/02/2018 Comp Metabolic Unb843 BUN 17 mg/dL 05/02/2018 Comp Metabolic Kiy276 B/C Ratio 17.3 Ratio 05/02/2018 Comp Metabolic Neh846 CALCIUM 9.6 mg/dL 05/02/2018 Comp Metabolic Zik908 ALK PHOS 40 U/L 05/02/2018 Comp Metabolic Cff496 AST(SGOT) 19 U/L 05/02/2018 Comp Metabolic Opp912 ALT(SGPT) 24 U/L 05/02/2018 Comp Metabolic Men782 BILI T 0.7 mg/dL 05/02/2018 Comp Metabolic Qrn728 ALBUMIN 4.2 g/dL 05/02/2018 Comp Metabolic Nlc691 TPRO 6.4 g/dL 05/02/2018 Comp Metabolic Wbj948 GLOB 2.2 g/dL 05/02/2018 Comp Metabolic Axp984 A/G Ratio 1.9 Ratio 05/02/2018 Comp Metabolic Dlg885 Osmo 282 mOsmo 05/02/2018 Cbc With Differential [...] 30.4 pg 05/02/2018 Cbc With Differential Ord2 [place]% 6.1 % 05/02/2018 Cbc With Differential Ord2 MCHC 33.9 pg 05/02/2018 Cbc With Differential Ord2 Eos% 0.5 % 05/02/2018 Cbc With Differential Ord2 PLT 170 K/ul 05/02/2018 Cbc With Differential Ord2 Baso% 0.7 % 05/02/2018 Cbc With Differential Ord2 RDW 13.2 % 05/02/2018 Cbc With Differential Ord2 Neut ABS# 5.87 K/ul 05/02/2018 Cbc With Differential Ord2 Lymph ABS# 1.98 K/ul 05/02/2018 Cbc With Differential Ord2 [place] ABS# 0.5 K/ul 05/02/2018 Cbc With Differential Ord2 Eos ABS# 0.0 K/ul 05/02/2018 Cbc With Differential Ord2 Baso ABS# 0.1 K/ul 05/02/2018 Review of Systems System Result Effective Dates Constitutional recent illness 07/23/2018 Constitutional No chills 07/23/2018 Constitutional No diaphoresis 07/23/2018 Constitutional No fever 07/23/2018 Eyes No eye erythema 07/23/2018 Ears/Nose/Throat/Neck No nasal discharge 07/23/2018 Cardiovascular No chest pain/pressure Cardiovascular No dyspnea 07/23/2018 Respiratory No cough 07/23/2018 Respiratory No chest congestion 2018 Gastrointestinal abdominal pain 2018 Gastrointestinal No constipation 2018 Gastrointestinal diarrhea 07/23/2018 Gastrointestinal hematochezia 07/23/2018 Gastrointestinal melena 07/23/2018 Gastrointestinal No vomiting 07/23/2018 Gastrointestinal No nausea 07/23/2018 Gastrointestinal No hematemesis 2018 Gastrointestinal gastroesophageal reflux 07/23/2018 Musculoskeletal No joint complaint 2018 Dermatologic No rash 07/23/2018 Neurologic No alteration of consciousness 07/23/2018 Neurologic No mental status change 2018 Constitutional No recent illness 2018 Constitutional No [...] Exam - General 1994 Constitutional general appearance Overall: well developed 07/23/2018 None Full Exam - General 1994 Constitutional general appearance Overall: in no acute distress 07/23/2018 None Full Exam - General 1994 Constitutional general appearance Overall: well nourished 07/23/2018 None Full Exam - General 1994 Eyes conjunctiva /eyelids Overall: eyelids normal 07/23/2018 None Full Exam - General 1994 Eyes conjunctiva /eyelids Overall: cornea clear 07/23/2018 None Full Exam - General 1994 Eyes conjunctiva /eyelids Overall: conjunctiva clear 07/23/2018 None Full Exam - General 1994 Ears/Nose/Throat lips/teeth/gingiva Overall: benign lips 07/23/2018 None Full Exam - General 1994 Ears/Nose/Throat oral cavity/pharynx/larynx Overall: oral mucosa clear 07/23/2018 None Full Exam - General 1994 Respiratory respiratory effort/rhythm Overall: normal rate 07/23/2018 None Full Exam - General 1994 Respiratory respiratory effort/rhythm Overall: no retractions 07/23/2018 None Full Exam - General 1994 Respiratory auscultation Overall: breath sounds clear bilaterally 07/23/2018 None Full Exam - General 1994 Cardiovascular auscultation of heart Overall: normal heart sounds 07/23/2018 None Full Exam - General 1994 Cardiovascular auscultation of heart Overall: regular rate 07/23/2018 None Full Exam - General 1994 Musculoskeletal head and neck Overall: head atraumatic 07/23/2018 None Full Exam - General 1994 Neurologic cranial nerves Overall: crainial nerves 2 - 12 grossly intact 07/23/2018 None Full Exam - General 1994 Psychiatric orientation/consciousness Overall: oriented to person, place and time 07/23/2018 None Full Exam - General 1994 Psychiatric mood and affect Overall: normal mood and affect 07/23/2018 None Full Exam - General 1994 Constitutional [...] No Procedures data Vital Signs Date Vital 07/23/2018 Blood Pressure 1: 110/56 Code : 8480-6 BMI: 28.6 Code : 58382-9 Heart Rate 1 : 85 bpm Height: 5'8" SpO2: 97% Weight: 188 lbs 06/05/2018 Blood Pressure 1: 142/66 Code : 8480-6 BMI: 30.0 Code : 13642-7 Heart Rate 1 : 75 bpm Height: 5'8" SpO2: 98% Weight: 197 lbs 05/01/2018 Blood Pressure 1: 138/88 Code : 8480-6 BMI: 29.5 Code : 51793-7 Heart Rate 1 : 74 bpm Height: 5'8" SpO2: 95% Weight: 194 lbs Functional Status No Functional Status data History of Present Illness Symptom Name Status Result Effective Date Notes Quality constant None Onset and Resolution sudden in onset 07/23/2018 None Onset of Symptom 3 days ago 07/23/2018 None Quality intermittent 06/05/2018 None Onset of Symptom [...] data Encounters Encounter Performer Location Codes Date 57707 EST. PATIENT, LEVEL III Diagnosis: Melena[ICD10: K92.1] Diagnosis: Diverticulitis of large intestine without perforation or abscess without bleeding[ICD10: K57.32] [facility] CPT-4: 05025 07/23/2018 ([id number]) 20588 EST. PATIENT, LEVEL III Diagnosis: Mixed hyperlipidemia[ICD10: E78.2] [facility] CPT-4: 81505 06/05/2018 ([id number]) OFFICE VISIT, NEW - LEVEL 4 Diagnosis: Personal history of other diseases of the circulatory system[ICD10: Z86.79] Diagnosis: Cardiac murmur, unspecified[ICD10: R01.1] Diagnosis: Other specified symptoms and signs involving the circulatory and respiratory systems[ICD10: R09.89] Diagnosis: Insomnia due to medical condition[ICD10: G47.01] [facility] CPT-4: 35127 05/01/2018 Plan of Care Planned Activity Notes Codes Status Date Visit Plan: Diverticulitis - rx for antibiotic sent to pt' s pharmacy - pt advised to avoid seeds, nuts, popcorn, or any other food which has been proven to upset the pt's stomach. Melena - will refer to Dr. Gonzalez for EGD/Colonoscopy 07/23/2018 Appointment: Dina Mehta WPtel: [address] [place] [address] (15 min) Moderate 07/23/2018 Patient Education: Patient Medication Summary Completed 07/23/2018 Care Plan: Referral Order SNOMED-CT : 407928741 Pending 07/23/2018 Visit Plan: Hyperlipidemia - pt has been [...] 20mg daily 06/05/2018 Appointment: Delmi Can WPtel: [address] [place], [place] [address] (15 min) Moderate 06/05/2018 Patient Education: Patient [...] with melatonin. 05/01/2018 Appointment: Delmi Can WPtel: [facility] [place] New Patient 05/01/2018 Patient Education: Patient Medication Summary Completed 05/01/2018 Care Plan: Referral Order SNOMED-CT : 058960421 Pending 05/01/2018 Referral: Yesenia Mesa Referral Appointment Requested Referral: Dc Gonzalez Referral Appointment Requested Instructions Comment stay on both antibiotic and the protonix Dr. Gonzalez office will call you with an appointment. Diverticulitis - rx for antibiotic sent to pt's pharmacy - pt advised to avoid seeds, nuts, popcorn, or any other food which has been proven to upset the pt's stomach. Melena - will refer to Dr. Gonzalez for EGD/Colonoscopy . Hyperlipidemia - pt has been counseled [...]
--- OUTSIDE RECORDS SUMMARY | 2018-08-13 09:59 | XMS REPORT | CCD ---
Author Author [facility] Organization [facility] Address [address] [place] [address] Phone Care Team Providers Care Field Mechanic Name Role Phone PP Unavailable CCM Unavailable Summary Purpose Interface Exchange Insurance Providers Payer name Policy type / Coverage type Covered constitution party ID Effective Begin Date Effective End Date [employer] Medicare Part B [id number] Unknown Family history Mother Diagnosis Age At Onset Arthritis Unknown Cancer Unknown Father Diagnosis Age At Onset Coronary Artery Disease Unknown Alcoholism Unknown Social History Social History Element Codes Description Effective Dates Marital status Unknown Tami 05/01/2018 Number of children Unknown 1 05/01/2018 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/[address]: 8736685 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 1965 05/01/[address]: 198055436 Never drinks alcohol 05/01/2018 Allergies, Adverse Reactions, [...] Fill Instructions trazodone 50 mg tablet RxNorm: 777545 1/2-1 Tablet(s) PO QHS as needed 07/02/2018 08/30/2018 Active trazodone 50 mg tablet RxNorm: 958938 1/2-1 Tablet(s) PO QHS 07/01/2018 Inactive pravastatin 20 mg tablet RxNorm: 836327 1 Tablet(s) PO daily 07/03/2018 Inactive folic acid 1 mg tablet RxNorm: 032840 1 Tablet(s) PO daily No Start Date Active magnesium oxide 250 mg tablet RxNorm: 670941 1 Tablet(s) PO daily No Start Date Active garlic 1,000 mg capsule RxNorm: 255573 1 Capsule(s) PO daily as needed No Start Date Active zinc 50 mg tablet RxNorm: 1 Tablet(s) PO daily No Start Date Active melatonin 10 mg tablet RxNorm: 0081942 1 Tablet(s) PO daily No Start Date Active Vitamin D3 5,000 unit tablet RxNorm: 985826 1 Tablet(s) PO daily No Start Date Active cyanocobalamin (vit B-12) 5,000 mcg sublingual tablet RxNorm: 587426 1 Tablet(s) SL daily No Start Date Active Medication Administered No Medication Administered data Immunizations No Immunization data Assessments Condition Codes Effective Dates Melena ICD-10: K92.1 ICD-9: 578.1 07/23/2018 Diverticulitis of large intestine without perforation or abscess without bleeding ICD-10: K57.32 ICD-9: 562.11 07/23/2018 Mixed hyperlipidemia ICD-10: E78.2 ICD-9: 272.2 06/05/2018 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 ICD-9: 327.01 05/01/2018 Other specified symptoms and signs involving the circulatory and respiratory systems ICD-10: R09.89 ICD-9: 785.9 05/01/2018 Cardiac murmur, unspecified ICD-10: R01.1 ICD-9: 785.2 05/01/2018 Personal history of other diseases of [...] Ord30 C/HDL 6.4 Ratio 05/02/2018 Comp Metabolic Fzu622 NA 140 mEq/L 05/02/2018 Comp Metabolic Cba521 K 4.6 mEq/L 05/02/2018 Comp Metabolic Kxm061 CL 105 mEq/L 05/02/2018 Comp Metabolic Ibk395 CO2 27.0 mEq/L 05/02/2018 Comp Metabolic Oxi090 ANION GAP 13 05/02/2018 Comp Metabolic Qod174 GLUCOSE 117 mg/dL 05/02/2018 Comp Metabolic Ynz495 Creat 1.0 mg/dL 05/02/2018 Comp Metabolic Ger047 eGFR 80 ml/min/1.73m2 05/02/2018 Comp Metabolic Pgb600 BUN 17 mg/dL 05/02/2018 Comp Metabolic Lko644 B/C Ratio 17.3 Ratio 05/02/2018 Comp Metabolic Fbw278 CALCIUM 9.6 mg/dL 05/02/2018 Comp Metabolic Tgq716 ALK PHOS 40 U/L 05/02/2018 Comp Metabolic Vsk558 AST(SGOT) 19 U/L 05/02/2018 Comp Metabolic Xnu908 ALT(SGPT) 24 U/L 05/02/2018 Comp Metabolic Oiv337 BILI T 0.7 mg/dL 05/02/2018 Comp Metabolic Kak968 ALBUMIN 4.2 g/dL 05/02/2018 Comp Metabolic Hfh401 TPRO 6.4 g/dL 05/02/2018 Comp Metabolic Hhg996 GLOB 2.2 g/dL 05/02/2018 Comp Metabolic Dmc498 A/G Ratio 1.9 Ratio 05/02/2018 Comp Metabolic Dwt385 Osmo 282 mOsmo 05/02/2018 Cbc With Differential [...] 30.4 pg 05/02/2018 Cbc With Differential Ord2 [place]% 6.1 % 05/02/2018 Cbc With Differential Ord2 [...] 1.98 K/ul 05/02/2018 Cbc With Differential Ord2 [place] ABS# 0.5 K/ul 05/02/2018 Cbc With Differential [...] affect 07/23/2018 None Full Exam - General 1995 Constitutional general appearance Development: well developed 06/05/2018 [...] Code : 8480-6 BMI: 28.6 Code : 38498-0 Heart Rate 1 : 85 bpm Height: 5'8" SpO2: 97% Weight: 188 lbs 06/05/2018 Blood Pressure 1: 142/66 Code : 8480-6 BMI: 30.0 Code : 51791-8 Heart Rate 1 : 75 bpm Height: 5'8" SpO2: 98% Weight: 197 lbs 05/01/2018 Blood Pressure 1: 138/88 Code : 8480-6 BMI: 29.5 Code : 56323-9 Heart Rate 1 : 74 bpm Height: [...] data Encounters Encounter Performer Location Codes Date 22922 EST. PATIENT, LEVEL III Diagnosis: Melena[ICD10: K92.1] Diagnosis: Diverticulitis of large intestine without perforation or abscess without bleeding[ICD10: K57.32] [facility] CPT-4: 39422 07/23/2018 ([id number]) 73390 EST. PATIENT, LEVEL III Diagnosis: Mixed hyperlipidemia[ICD10: E78.2] [facility] CPT-4: 72565 06/05/2018 ([id number]) OFFICE VISIT, NEW - LEVEL 4 Diagnosis: Personal history of other diseases of the circulatory system[ICD10: Z86.79] Diagnosis: Cardiac murmur, unspecified[ICD10: R01.1] Diagnosis: Other specified symptoms and signs involving the circulatory and respiratory systems[ICD10: R09.89] Diagnosis: Insomnia due to medical condition[ICD10: G47.01] [facility] CPT-4: 13450 05/01/2018 Plan of Care Planned Activity Notes Codes Status Date Visit Plan: Diverticulitis - rx for antibiotic sent to pt' s pharmacy - pt advised to avoid seeds, nuts, popcorn, or any other food which has been proven to upset the pt's stomach. Melena - will refer to Dr. Gonzalez for EGD/Colonoscopy 07/23/2018 Appointment: Dina Mehta WPtel: [address] [place], [place] [address] (15 min) Moderate 07/23/2018 Patient Education: Patient Medication Summary Completed 07/23/2018 Care Plan: Referral Order SNOMED-CT : 004074327 Pending 07/23/2018 Visit Plan: Hyperlipidemia - pt [...] 20mg daily 06/05/2018 Appointment: Delmi Can WPtel: [facility] (15 min) Moderate 06/05/2018 Patient Education: Patient [...] with melatonin. 05/01/2018 Appointment: Delmi Can WPtel: [facility] [place] New Patient 05/01/2018 Patient Education: Patient Medication Summary Completed 05/01/2018 Care Plan: Referral Order SNOMED-CT : 585274434 Pending 05/01/2018 Referral: Yesenia Mesa Referral Appointment [...]
--- OUTSIDE RECORDS SUMMARY | 2018-08-13 09:59 | XMS REPORT | CCD ---
Author Author [facility] Organization [facility] Address [address] [place] [address] Phone Care Team Providers Care Cooker Soda Name Role Phone PP Unavailable CCM Unavailable Summary Purpose Interface Exchange Insurance Providers Payer name Policy type / Coverage type Covered democrat ID Effective Begin Date Effective End Date [employer]na [employer] Medicare Part B [id number] Unknown Family history Mother Diagnosis Age At Onset Arthritis Unknown Cancer Unknown Father Diagnosis Age At Onset Coronary Artery Disease Unknown Alcoholism Unknown Social History Social History Element Codes Description Effective Dates Marital status Unknown Tami 05/01/2018 Number of children Unknown 1 05/01/2018 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/[address]: 2495311 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 1965 05/01/[address]: 792999583 Never drinks alcohol 05/01/2018 Allergies, Adverse Reactions, [...] Fill Instructions trazodone 50 mg tablet RxNorm: 902358 1/2-1 Tablet(s) PO QHS as needed 07/02/2018 08/30/2018 Active trazodone 50 mg tablet RxNorm: 295539 1/2-1 Tablet(s) PO QHS 07/01/2018 Inactive pravastatin 20 mg tablet RxNorm: 534612 1 Tablet(s) PO daily 07/03/2018 Inactive folic acid 1 mg tablet RxNorm: 056033 1 Tablet(s) PO daily No Start Date Active magnesium oxide 250 mg tablet RxNorm: 781294 1 Tablet(s) PO daily No Start Date Active garlic 1,000 mg capsule RxNorm: 081168 1 Capsule(s) PO daily as needed No Start Date Active zinc 50 mg tablet RxNorm: 1 Tablet(s) PO daily No Start Date Active melatonin 10 mg tablet RxNorm: 6710508 1 Tablet(s) PO daily No Start Date Active Vitamin D3 5,000 unit tablet RxNorm: 247354 1 Tablet(s) PO daily No Start Date Active cyanocobalamin (vit B-12) 5,000 mcg sublingual tablet RxNorm: 697173 1 Tablet(s) SL daily No Start Date [...] Ord30 C/HDL 6.4 Ratio 05/02/2018 Comp Metabolic Ckr664 NA 140 mEq/L 05/02/2018 Comp Metabolic Ayt919 K 4.6 mEq/L 05/02/2018 Comp Metabolic Fij215 CL 105 mEq/L 05/02/2018 Comp Metabolic Qkw429 CO2 27.0 mEq/L 05/02/2018 Comp Metabolic Qxh760 ANION GAP 13 05/02/2018 Comp Metabolic Eeb056 GLUCOSE 117 mg/dL 05/02/2018 Comp Metabolic Oke146 Creat 1.0 mg/dL 05/02/2018 Comp Metabolic Lug538 eGFR 80 ml/min/1.73m2 05/02/2018 Comp Metabolic Lzl340 BUN 17 mg/dL 05/02/2018 Comp Metabolic Dby458 B/C Ratio 17.3 Ratio 05/02/2018 Comp Metabolic Uiz407 CALCIUM 9.6 mg/dL 05/02/2018 Comp Metabolic Fzh373 ALK PHOS 40 U/L 05/02/2018 Comp Metabolic Jzz128 AST(SGOT) 19 U/L 05/02/2018 Comp Metabolic Ntz541 ALT(SGPT) 24 U/L 05/02/2018 Comp Metabolic Bgn728 BILI T 0.7 mg/dL 05/02/2018 Comp Metabolic Atk757 ALBUMIN 4.2 g/dL 05/02/2018 Comp Metabolic Boa482 TPRO 6.4 g/dL 05/02/2018 Comp Metabolic Wok874 GLOB 2.2 g/dL 05/02/2018 Comp Metabolic Obw641 A/G Ratio 1.9 Ratio 05/02/2018 Comp Metabolic Cfa236 Osmo 282 mOsmo 05/02/2018 Cbc With Differential [...] 30.4 pg 05/02/2018 Cbc With Differential Ord2 [place]% 6.1 % 05/02/2018 Cbc With Differential Ord2 [...] 1.98 K/ul 05/02/2018 Cbc With Differential Ord2 [place] ABS# 0.5 K/ul 05/02/2018 Cbc With Differential [...] Code : 8480-6 BMI: 28.6 Code : 43137-5 Heart Rate 1 : 85 bpm Height: 5'8" SpO2: 97% Weight: 188 lbs 06/05/2018 Blood Pressure 1: 142/66 Code : 8480-6 BMI: 30.0 Code : 51140-0 Heart Rate 1 : 75 bpm Height: 5'8" SpO2: 98% Weight: 197 lbs 05/01/2018 Blood Pressure 1: 138/88 Code : 8480-6 BMI: 29.5 Code : 21769-6 Heart Rate 1 : 74 bpm Height: [...] data Encounters Encounter Performer Location Codes Date [address]8568 EST. PATIENT, LEVEL III Diagnosis: Melena[ICD10: K92.1] Diagnosis: Diverticulitis of large intestine without perforation or abscess without bleeding[ICD10: K57.32] [facility] CPT-4: 43721 07/23/2018 ([id number]) 01113 EST. PATIENT, LEVEL III Diagnosis: Mixed hyperlipidemia[ICD10: E78.2] [facility] CPT-4: 12433 06/05/2018 ([id number]) OFFICE VISIT, NEW - LEVEL 4 Diagnosis: Personal history of other diseases of the circulatory system[ICD10: Z86.79] Diagnosis: Cardiac murmur, unspecified[ICD10: R01.1] Diagnosis: Other specified symptoms and signs involving the circulatory and respiratory systems[ICD10: R09.89] Diagnosis: Insomnia due to medical condition[ICD10: G47.01] [facility] CPT-4: 41605 05/01/2018 Plan of Care Planned Activity Notes Codes Status Date Visit Plan: Diverticulitis - rx for antibiotic sent to pt' s pharmacy - pt advised to avoid seeds, nuts, popcorn, or any other food which has been proven to upset the pt's stomach. Melena - will refer to Dr. Gonzalez for EGD/Colonoscopy 07/23/2018 Patient Education: Patient Medication Summary Completed 07/23/2018 Care Plan: Referral Order SNOMED-CT : 258848507 Pending 07/23/2018 Visit Plan: Hyperlipidemia - pt [...] 20mg daily 06/05/2018 Appointment: Delmi Can WPtel: [facility] [place] [address] (15 min) Moderate 06/05/2018 Patient Education: Patient Medication Summary Completed 06/05/2018 Patient Education: Cholesterol Management Completed 06/05/2018 Referral: Yesenia Meas Referral Completed 05/24/2018 Visit Plan: Heart murmur [...] with melatonin. 05/01/2018 Appointment: Delmi Can WPtel: [facility] [place] New Patient 05/01/2018 Patient Education: Patient Medication Summary Completed 05/01/2018 Care Plan: Referral Order SNOMED-CT : 697923662 Pending 05/01/2018 Referral: Yesenia Mesa Referral Appointment [...]
[2018-08-13] MEDS ORDERED: MIDAZOLAM 2 MG/2 ML (VERSED) VIAL IVP ONE (10:00)
[2018-08-13] MEDS ORDERED: HURRICAINE EXT TUBE (BENZOCAINE) XX PRN (10:00)
[2018-08-13] MEDS ORDERED: LIDOCAINE JELLY 2% 6 ML SYRINGE MM PRN (10:00)
[2018-08-13] MEDS ORDERED: NS IV 500 ML 500 ML IV PRN (10:00)
[2018-08-13] MEDS ORDERED: fentaNYL INJECTION 100 MCG/2 ML AMP IVP ONE (10:00)
--- OUTSIDE RECORDS SUMMARY | 2018-08-13 10:00 | XMS REPORT | Continuity of Care Document ---
Author Author [facility] Organization [facility] Address Unknown Phone Unavailable Allergies Active Description Code Type Severity Reaction Onset Reported/Identified Relationship to Patient Clinical Status Yes No Known Drug Allergies [id number] Drug Allergy Unknown N/A 07/27/2013 Medications There is no data. 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 07/22/2018 BARRY OLSEN, TREVIN Mott Ot V72.84 EXAM PRE-OPERATIVE NOS 07/22/2018 MATA HAILE Ot 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 07/22/2018 MATA HAILE Ot Z13.9 ENCOUNTER FOR SCREENING, UNSPECIFIED 07/22/2018 SHARI HAZEL MD Ot E04.2 NONTOXIC MULTINODULAR GOITER 07/22/2018 SHARI HAZEL MD Ot I10 ESSENTIAL (PRIMARY) HYPERTENSION 07/22/2018 SHARI HAZEL MD Ot I35.0 NONRHEUMATIC AORTIC (VALVE) STENOSIS 07/22/2018 SHARI HAZEL MD Ot 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 07/22/2018 SHARI HAZEL MD Ot 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 07/22/2018 SHARI HAZEL MD Ot I10 ESSENTIAL (PRIMARY) HYPERTENSION 07/22/2018 SHARI HAZEL MD Ot I35.0 NONRHEUMATIC AORTIC (VALVE) STENOSIS 07/22/2018 SHARI HAZEL MD Ot 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 07/23/2018 MARCO DURAN Ot 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 07/23/2018 MARCO DURAN Ot K92.1 MELENA 07/23/2018 MARCO DURAN Ot 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.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 07/24/2018 SHARI HAZEL MD Ot I10 ESSENTIAL (PRIMARY) HYPERTENSION 07/24/2018 SHARI HAZEL MD Ot I35.0 NONRHEUMATIC AORTIC (VALVE) STENOSIS 07/24/2018 SHARI HAZEL MD Ot 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 07/25/2018 MARCO DURAN Ot K92.1 MELENA 07/25/2018 MARCO DURAN Ot 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.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 07/25/2018 MARCO DURAN Ot 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 07/25/2018 MARCO DURAN Ot K92.1 MELENA 07/25/2018 MARCO DURAN Ot Z79.82 SKILLED NURSING (CURRENT) USE OF ASPIRIN 08/01/2018 PRINCESS OLSEN, JEVON Ashley Ot Z01.818 ENCOUNTER FOR OTHER PREPROCEDURAL EXAMIN 08/10/2018 SHARI HAZEL MD, Ot E04.2 NONTOXIC MULTINODULAR GOITER 08/10/2018 SHARI HAZEL MD Ot I10 ESSENTIAL (PRIMARY) HYPERTENSION 08/10/2018 SHARI HAZEL MD Ot I35.0 NONRHEUMATIC AORTIC (VALVE) STENOSIS 08/10/2018 SHARI HAZEL MD Ot 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 Results Test Result Range [id number] - 06/25/18 10:25 Serum or plasma urea nitrogen measurement (mass/volume) 19 mg/dL 7-18 Serum or plasma creatinine measurement (mass/volume) 1.07 mg/dL 0.60-1.30 Serum or plasma urea nitrogen/creatinine mass ratio 18 NRG Serum or plasma creatinine measurement with calculation of estimated glomerular filtration rate > NRG Complete urinalysis with reflex to culture - 07/22/18 20:05 Urine color determination YFN NRG Urine clarity determination SLIGHTLY CLOUDY NRG Urine pH measurement by test strip 5 5-9 Specific gravity of urine by test strip 1.025 1.016- 1.022 Urine protein assay by test strip, semi-quantitative 2+ NEGATIVE Urine glucose detection by automated test strip NEGATIVE NEGATIVE Erythrocytes detection in urine sediment by light microscopy 1+ NEGATIVE Urine ketones detection by automated test strip 2+ NEGATIVE Urine nitrite detection by test strip NEGATIVE NEGATIVE Urine total bilirubin detection by test strip 2+ NEGATIVE Urine urobilinogen measurement by automated test strip (mass/volume) 1 mg/dL NORMAL Urine leukocyte esterase detection by dipstick 1+ NEGATIVE Automated urine sediment erythrocyte count by microscopy (number/high power field) RARE NRG Automated urine sediment leukocyte count by microscopy (number/high power field ) [HPF] NRG Bacteria detection in urine sediment by light microscopy TRACE NRG Crystals detection in urine sediment by light microscopy NONE NRG Casts detection in urine sediment by light microscopy PRESENT NRG Mucus detection in urine sediment by light microscopy LARGE NRG Complete urinalysis with reflex to culture YES NRG Hyaline casts detection in urine sediment by light microscopy 2-5 NRG WBC casts detection in urine sediment by light microscopy RARE NRG Bacterial urine culture - 07/22/18 20:05 Bacterial urine culture NG NRG Complete blood count (CBC) with automated white blood cell (WBC) differential - 07/22/18 20:15 Blood leukocytes automated count (number/volume) 12.9 10*3/uL 4.3-11.0 Blood erythrocytes automated count (number/volume) 4.84 10*6/uL 4.35-5.85 Venous blood hemoglobin measurement (mass/volume) 14.7 g/dL 13.3-17.7 Blood hematocrit (volume fraction) 42 % 40-54 Automated erythrocyte mean corpuscular volume 88 [foz_us] 80-99 Automated erythrocyte mean corpuscular hemoglobin (mass per erythrocyte) 30 pg 25-34 Automated erythrocyte mean corpuscular hemoglobin concentration measurement ( mass/volume) 35 g/dL 32-36 Automated erythrocyte distribution width ratio 12.5 % 10.0-14.5 Automated blood platelet count (count/volume) 177 10*3/uL 130-400 Automated blood platelet mean volume measurement 12.2 [foz_us] 7.4-10.4 Automated blood neutrophils/100 leukocytes 83 % 42-75 Automated blood lymphocytes/100 leukocytes 10 % 12-44 Blood monocytes/100 leukocytes 6 % 0-12 Automated blood eosinophils/100 leukocytes 0 % 0-10 Automated blood basophils/100 leukocytes 0 % 0-10 Blood neutrophils automated count (number/volume) 10.7 10*3 1.8-7.8 Blood lymphocytes automated count (number/volume) 1.3 10*3 1.0-4.0 Blood monocytes automated count (number/volume) 0.8 10*3 0.0-1.0 Automated eosinophil count 0.0 10*3/uL 0.0-0.3 Automated blood basophil count (count/volume) 0.0 10*3/uL 0.0-0.1 Comprehensive metabolic panel - 07/22/18 20:15 Serum or plasma sodium measurement (moles/volume) 137 mmol/L 135-145 Serum or plasma potassium measurement (moles/volume) 4.2 mmol/L 3.6-5.0 Serum or plasma chloride measurement (moles/volume) 102 mmol/L 98-107 Carbon dioxide 23 mmol/L 21-32 Serum or plasma anion gap determination (moles/volume) 12 mmol/L 5-14 Serum or plasma urea nitrogen measurement (mass/volume) 21 mg/dL 7-18 Serum or plasma creatinine measurement (mass/volume) 1.06 mg/dL 0.60-1.30 Serum or plasma urea nitrogen/creatinine mass ratio 20 NRG Serum or plasma creatinine measurement with calculation of estimated glomerular filtration rate > NRG Serum or plasma glucose measurement (mass/volume) 128 mg/dL 70-105 Serum or plasma calcium measurement (mass/volume) 9.4 mg/dL 8.5-10.1 Serum or plasma total bilirubin measurement (mass/volume) 0.7 mg/dL 0.1-1.0 Serum or plasma alkaline phosphatase measurement (enzymatic activity/volume) 60 U/L 40-136 Serum or plasma aspartate aminotransferase measurement (enzymatic activity/ volume) 17 U/L 5-34 Serum or plasma alanine aminotransferase measurement (enzymatic activity/volume ) 16 U/L 0-55 Serum or plasma protein measurement (mass/volume) 6.9 g/dL 6.4-8.2 Serum or plasma albumin measurement (mass/volume) 3.9 g/dL 3.2-4.5 CALCIUM CORRECTED 9.5 mg/dL 8.5-10.1 Encounters ACCT No. Visit Date/Time Discharge Status Pt. Type Provider Facility Loc./Unit Complaint [id number] 08/06/2018 10:30:00 08/06/2018 23:59:59 CLS Preadmit JEVON SÁNCHEZ MD [facility] ENDO BLOOD STOOLS/GERD/MELENA /DIARRHEA [id number] 08/01/2018 05:56:00 08/01/2018 14:28:00 DIS Outpatient JEVON SÁNCHEZ MD [facility] PREOP COLONOSCOPY/EGD [id number] 07/22/2018 19:28:00 07/23/2018 00:35:00 DIS Emergency MARCO DURAN [facility] ER BLOOD IN STOOL [id number] 07/22/2018 13:36:00 07/22/2018 14:20:00 DIS Outpatient MARCO DURAN [facility] ER BLOOD IN STOOL [id number] 07/02/2018 08:11:00 07/02/2018 23:59:59 CLS Outpatient SHARI HAZEL MD [facility] CARD AORTIC STENOSIS,HTN [id number] 06/25/2018 10:18:00 06/25/2018 23:59:59 CLS Outpatient SHARI HAZEL MD [facility] RAD AORTIC STENOSIS [id number] 05/24/2018 15:10:00 05/24/2018 23:59:59 CLS Preadmit SHARI HAZEL MD [facility] RAD CAROTID STENOSIS, BILATERAL [id number] 05/24/2018 14:43:00 05/24/2018 23:59:59 CLS Preadmit SHARI HAZEL MD [facility] CARD CARDIAC MURMUR [id number] 08/20/2015 11:05:00 08/20/2015 23:59:59 CLS Outpatient MATA HAILE [facility] RAD DILATED THORACIC AORTA,SCREENING [id number] 08/01/2013 08:44:00 08/01/2013 11:35:00 DIS Outpatient TREVIN REDDY MD [facility] BLOOD IN STOOLS [id number] 07/31/2013 07:16:00 07/31/2013 23:59:59 CLS Outpatient TREVIN REDDY MD [facility] PREOP BLOOD IN STOOLS [id number] 07/29/2013 11:01:00 07/29/2013 15:00:00 DIS Outpatient TREVNI REDDY MD [facility] GI BLEED [id number] 07/27/2013 08:35:00 07/27/2013 10:44:00 DIS Emergency LUIZA BRAUN MD [facility] ER BLOODY STOOLS [id number] 04/20/2018 13:12:01 04/20/2018 23:59:59 CLS Outpatient
[2018-08-13] MEDS ORDERED: NS IV 500 ML 500 ML ONE (10:09)
[2018-08-13 10:10] VITALS: BP 139/81
--- NOTE | 2018-08-13 10:32 | Conscious Sedation/ASA ---
Conscious Sedation Pre-Proced Time 10:32 ASA Score 2 For ASA 3 and 4: Consider anesthesia and medical clearance. Also, for patients with a history of failed moderate sedation consider anesthesia. Airway Lungs Heart ASA score ASA 1: a normal healthy patient ASA 2: a patient with a mild systemic disease (mid diabetes, controlled hypertension, obesity ASA 3: a patient with a severe systemic disease that limits activity (angina , COPD, prior Myocardial infarction) ASA 4: a patient with an incapacitating disease that is a constant threat to life (CHF, renal failure) ASA 5: a moribund patient not expected to survive 24 hrs. (ruptured aneurysm) ASA 6: a declared brain- patient whose organs are being harvested. For emergent operations, add the letter E after the classification Mallampati Classification Grade 1 Sedation Plan Discussed options with patient/fam The patient is an appropriate candidate to undergo the planned procedure, sedation, and anesthesia. The patient immediately re-assessed prior to indication. JEVON SÁNCHEZ MD Aug 13, 2018 10:32
--- NOTE | 2018-08-13 10:32 | History & Physicial ---
History of Present Illness History of Present Illness Reason for visit/HPI to undergo an upper endoscopy regarding melena with symptoms of reflux and concomitant colonoscopy to investigate diarrhea and hematochezia. Date of Admission 08/13/18 Date Seen by a Provider: Aug 13, 2018 Time Seen by a Provider: 10:30 I consulted on this patient on 08/13/18 10:29 Attending Physician Jevon Gonzalez MD Admitting Physician Delmi Can MD Consult Allergies and Home Medications Allergies Coded Allergies: No Known Drug Allergies (Unverified , 07/27/13) Home Medications Cetirizine HCl 10 Mg Tablet, 10 MG PO DAILY, (Reported) Levocetirizine Dihydrochloride 5 Mg Tablet, 5 MG PO HS, (Reported) Lisinopril 10 Mg Tablet, 10 MG PO DAILY, (Reported) Pantoprazole Sodium 40 Mg Tablet.dr, 40 MG PO DAILY Prescribed by: MARCO DURAN on 07/22/182222 Rosuvastatin Calcium 5 Mg Tablet, 5 MG PO HS, (Reported) Trazodone HCl 50 Mg Tablet, 50 MG PO HS, (Reported) Patient Home Medication List Home Medication List Reviewed: Yes Past Xzyjtaq-Qyouge-Gaqsvb Hx Patient Social History Marrital Status: Employed/Student: retired [employer] Smoke Exposure: No Recent Foreign Travel: No Contact w/other who traveled: No Recent Hopitalizations: No Immunizations Up To Date Date of Pneumonia Vaccine: Mar 03, 2017 Date of Influenza Vaccine: Mar 29, 2018 Seasonal Allergies Seasonal Allergies: No Surgeries No Respiratory No Cardiovascular Yes (ath. sclerosis, stenosis of aortic vavle) Heart Murmur, High Cholesterol, Hypertension Neurological No Genitourinary No Gastrointestinal Yes Gastroesophageal Reflux, Gastrointestinal Bleed Musculoskeletal No Endocrine History of Endocrine Disorders: No HEENT History of HEENT Disorders: No Cancer No Psychosocial History of Psychiatric Problem: No Integumentary History of Skin or Integumenta: No Blood Transfusions History of Blood Disorders: No Review of Systems Constitutional: no symptoms reported EENTM: no symptoms reported Respiratory: no symptoms reported Cardiovascular: no symptoms reported Gastrointestinal: see HPI Genitourinary: no symptoms reported Musculoskeletal: no symptoms reported Skin: no symptoms reported Psychiatric/Neurological: No Symptoms Reported Physical Exam Vital Signs Capillary Refill : Height, Weight, BMI Height: 5'7.00" Weight: 188lbs. 0.0oz. 85.307784rb; 29.4 BMI Method:Stated General Appearance: No Apparent Distress Neck: Normal Inspection Respiratory: Lungs Clear Cardiovascular: Regular Rate, Rhythm Gastrointestinal: Non Tender, Soft Rectal: Deferred Neurologic/Psychiatric: Alert, Oriented x3 Skin: Warm/Dry Assessment/Plan Assessment and Plan Gentleman with symptoms of GERD and hematochezia. For EGD with colonoscopy Admission Diagnosis Admission Status: Other (Outpt Proc) JEVON GONZALEZ MD Aug 13, 2018 10:32
[2018-08-13] MEDS ORDERED: fentaNYL INJECTION 100 MCG/2 ML AMP ONE ×2 (11:31→11:32)
[2018-08-13] MEDS ORDERED: MIDAZOLAM 2 MG/2 ML (VERSED) VIAL ONE ×5 (11:32)
[2018-08-13] MEDS ORDERED: HURRICAINE EXT TUBE (BENZOCAINE) ONE (11:32)
--- NOTE | 2018-08-13 12:26 | Endo Procedure Record ---
Endo Procedure Report Date of Procedure Last Colonoscopy: Yes (2013?) Aug 13, 2018 Surgeon (s) JEVON SÁNCHEZ MD Post Procedure/Op Diagnosis EGD: Polypoid lesion at the prepyloric region Colonoscopy: 2 mm polyp at the descending colon. Severe sigmoid diverticulosis Procedure Performed EGD with biopsy of lesion at the pyloric channel Colonoscopy to cecum Hot biopsy polypectomy Description of Procedure Anesthesia Type: Conscious Sedation Specimen(s) collected/removed fragments of the polypoid lesion at the pyloric channel. Descending colon polyp Description of the Procedure Indication for the procedures: This gentleman came in for an upper endoscopy to evaluate acute onset of melena with vomiting and concomitant colonoscopy, to investigate bloody diarrhea, that lasted 24 hours, about 3 weeks ago. Currently , he reports being asymptomatic. informed consent was obtained after reviewing the procedures in detail. Description of the procedures: EGD/biopsy of lesion at the pyloric channel: He was placed in left lateral decubitus position and his vital signs were monitored. Conscious sedation was achieved using Versed and fentanyl. The proximal gastroscope was then introduced down the esophagus, past the stomach, into the proximal duodenum. Findings: Esophagus: Mild esophagitis Stomach: A polypoid lesion about 5 mm in size at the pyloric channel. Multiple biopsies were obtained. He did not have the typical appearance of a carcinoma. Duodenum: Normal. He tolerated the procedure well and was turned around in preparation for colonoscopy. Impression: Melena and 1 episode of vomiting. Polypoid lesion at the pyloric channel, pending histologic evaluation. Colonoscopy/hot biopsy polypectomy: Digital rectal examination was unremarkable. The colonoscope was then introduced in the rectum and advanced all the way up to the cecum. Scope was then withdrawn slowly and the mucosa examined in a systematic fashion. I findings: 1. Severe sigmoid diverticulosis 2. 2 mm polyp at the descending colon, that was excised with hard biopsy forceps He tolerated the procedures well and was taken back to the nursing area in a stable condition. Impression: Epigastric pain and vomiting. Polypoid lesion of the pyloric channel, pending histologic evaluation. Rectal bleeding with a very small descending colon polyp discovered and excised. Copy Copies To 1: CARMELA HAIDER MD, XAVIER M MD Aug 13, 2018 12:25
--- NOTE | 2018-08-13 12:27 | Discharge Inst-Simple/Standard ---
Discharge Inst-Standard Discharge Medications New, Converted or Re-Newed RX: Other Patient Instructions/Follow Up Plan of Care/Instructions/FU: we would call once histology results are available and coordinate the requirement of management Activity as Tolerated: Yes Discharge Diet: No Restrictions JEVON SÁNCHEZ MD Aug 13, 2018 12:27
[2018-08-13 12:35] VITALS: BP 113/66
[2018-08-13 13:05] VITALS: BP 116/73
[2018-08-13 13:40] VITALS: BP 116/73
== END 2018-08-13 13:50 | disposition home or self-care (01) ==
LOC: ENDO 09:54
PROVIDERS: ATTEND Surgery
DX: K20.9 Esophagitis, unspecified (principal); K63.5 Polyp of colon; K57.30 Diverticulosis of large intestine without perforation or abscess without bleeding; R19.7 Diarrhea, unspecified; K31.89 Other diseases of stomach and duodenum; I35.0 Nonrheumatic aortic (valve) stenosis; R01.1 Cardiac murmur, unspecified; E78.00 Pure hypercholesterolemia, unspecified; I10 Essential (primary) hypertension; K21.9 Gastro-esophageal reflux disease without esophagitis; Z79.899 Other long term (current) drug therapy

== ENCOUNTER 2018-12-02 06:17 | Emergency (ER) | payer MEDICARE, OTHER ==
[~2018-12-02] VITALS: Ht 170.2 cm; Wt 85.3 kg
[~2018-12-02 06:17] MED LIST changes: -TRAZ-189 PO; +TRAZ-222 PO
[2018-12-02] MEDS ORDERED: NS IV 1000 ML 1,000 ML IV ONE (06:23)
--- OUTSIDE RECORDS SUMMARY | 2018-12-02 06:25 | XMS REPORT | CCD ---
Author Author [facility] Organization [facility] Address [address] [place] [address] Phone Care Team Providers Care Computer Laboratory Technician Name Role Phone PP Unavailable CCM Unavailable Summary Purpose Interface Exchange Insurance Providers Payer name Policy type / Coverage type Covered alliance party ID Effective Begin Date Effective End Date WPS Medicare Part B Medicare Part B [id number] Unknown Cigna Medicare Part B [id number] Unknown Family history Mother Diagnosis Age At Onset Arthritis Unknown Cancer Unknown Father Diagnosis Age At Onset Coronary Artery Disease Unknown Alcoholism Unknown Social History Social History Element Codes Description Effective Dates Marital status Unknown Tami 05/01/2018 Number of children Unknown 1 05/01/2018 Employment Unknown 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/01/[address]: 9772019 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 1964 05/01/[address]: 820506298 Never drinks alcohol 05/01/2018 Allergies, Adverse Reactions, Alerts Substance Reaction Codes Entered Date Inactivated Date Status Tomatoes Unknown 05/01/2018 No Inactive Date Active * NO KNOWN DRUG ALLERGIES Unknown 05/01/2018 No Inactive Date Active Past Medical History Illness Codes Condition Status Onset Date Resolved Date Acute laryngopharyngitis ICD-9: 465.0 ICD-10: J06.0 Active 11/09/2018 Unknown Cough ICD-9: 786.2 ICD-10: R05 Active 11/09/2018 Unknown Other allergic rhinitis ICD-9: 477.8 ICD-10: J30.89 Active 11/09/2018 Unknown 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 Active 05/01/2018 Unknown Mixed hyperlipidemia ICD- 9: 272.2 ICD-10: E78.2 Active 06/05/2018 Unknown Melena ICD-9: 578.1 ICD-10: K92.1 Active 07/23/2018 Unknown Diverticulitis of large intestine without perforation or abscess without bleeding ICD-9: 562.11 ICD-10: K57.32 Active 07/23/2018 Unknown Cardiac murmur, unspecified ICD-9: 785.2 ICD-10: R01.1 Active 05/01/2018 Unknown Other specified symptoms and signs involving the circulatory and respiratory systems ICD-9: 785.9 ICD-10: R09.89 Active 05/01/2018 Unknown Personal history of other diseases of the circulatory system ICD-9: V12.59 ICD-10: Z86.79 Active 05/01/2018 Unknown Problems Condition Codes Effective Dates Condition Status Acute laryngopharyngitis ICD-9: 465.0 ICD-10: J06.0 11/09/2018 Active Cough ICD-9: 786.2 ICD-10: R05 11/09/2018 Active Other allergic rhinitis ICD-9: 477.8 ICD-10: J30.89 11/09/2018 Active 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 05/01/2018 Active Mixed hyperlipidemia ICD- 9: 272.2 ICD-10: E78.2 06/05/2018 Active Melena ICD-9: 578.1 ICD-10: K92.1 07/23/2018 Active Diverticulitis of large intestine without perforation or abscess without bleeding ICD-9: 562.11 ICD-10: K57.32 07/23/2018 Active Cardiac murmur, unspecified ICD-9: 785.2 ICD-10: R01.1 05/01/2018 Active Other specified symptoms and signs involving the circulatory and respiratory systems ICD-9: 785.9 ICD-10: R09.89 05/01/2018 Active Personal history of other diseases of the circulatory system ICD-9: V12.59 ICD-10: Z86.79 05/01/2018 Active Medications Medication Codes Instructions Start Date Stop Date Status Fill Instructions Augmentin 500 mg-125 mg tablet RxNorm: 446609 1 Tablet(s) PO TID 11/09/2018 11/15/2018 Inactive Kenalog 40 mg/mL suspension for injection RxNorm: 5853244 Milliliter(s) Inj 11/09/2018 11/09/2018 Inactive montelukast 10 mg tablet RxNorm: 579654 1 Tablet(s) PO daily 09/03/2018 08/28/2019 Active trazodone 50 mg tablet RxNorm: 915329 1/2-1 Tablet(s) PO QHS as needed 08/30/2018 11/27/2018 Active trazodone 50 mg tablet RxNorm: 015368 1/2-1 Tablet(s) PO QHS 07/02/2018 07/01/2018 Inactive trazodone 50 mg tablet RxNorm: 643651 1/2-1 Tablet(s) PO QHS as needed 07/02/2018 08/29/2018 Inactive pravastatin 20 mg tablet RxNorm: 506326 1 Tablet(s) PO daily 06/05/2018 07/03/2018 Inactive Advil Cold and Sinus 30 mg-200 mg capsule RxNorm: 9360824 1 Capsule(s) PO UD No Start Date Active folic acid 1 mg tablet RxNorm: 329802 1 Tablet(s) PO daily No Start Date Active magnesium oxide 250 mg tablet RxNorm: 385814 1 Tablet(s) PO daily No Start Date Active lisinopril 10 mg tablet RxNorm: 992275 1 Tablet(s) PO daily No Start Date Active garlic 1,000 mg capsule RxNorm: 100564 1 Capsule(s) PO daily as needed No Start Date Active zinc 50 mg tablet RxNorm: 1 Tablet(s) PO daily No Start Date Active melatonin 10 mg tablet RxNorm: 9149523 1 Tablet(s) PO daily No Start Date Active Vitamin D3 5,000 unit tablet RxNorm: 569827 1 Tablet(s) PO daily No Start Date Active cyanocobalamin (vit B-12) 5,000 mcg sublingual tablet RxNorm: 714451 1 Tablet(s) SL daily No Start Date Active atorvastatin 10 mg tablet RxNorm: 541519 1/2 Tablet(s) PO daily No Start Date 10/28/2018 Inactive Medication Administered Medication Codes Instructions Start Date Status Kenalog 40 mg/mL suspension for injection RxNorm: 5607751 Milliliter 11/09/2018 No longer Active Immunizations No Immunization data Assessments Condition Codes Effective Dates Other allergic rhinitis ICD-10: J30.89 ICD-9: 477.8 11/09/2018 Acute laryngopharyngitis ICD-10: J06.0 ICD-9: 465.0 11/09/2018 Cough ICD-10: R05 ICD-9: 786.2 11/09/2018 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 ICD-9: 327.01 09/03/2018 Mixed hyperlipidemia ICD-10: E78.2 ICD-9: 272.2 09/03/2018 Melena ICD-10: K92.1 ICD-9: 578.1 07/30/2018 Diverticulitis of large intestine without perforation or abscess without bleeding ICD-10: K57.32 ICD-9: 562.11 07/23/2018 Personal history of other diseases of the circulatory system ICD-10: Z86.79 ICD-9: V12.59 05/01/2018 Other specified symptoms and signs involving the circulatory and respiratory systems ICD-10: R09.89 ICD-9: 785.9 05/01/2018 Cardiac murmur, unspecified ICD-10: R01.1 ICD-9: 785.2 05/01/2018 Reason For Visit Reason For Visit Effective Dates Notes cough 11/09/2018 abdominal pain 09/03/2018 hematochezia 07/23/2018 abdominal pain 06/05/2018 abdominal pain 05/01/2018 Results Observation Observation Code Item Item Code Result Date Hgb & Hct Ord65 HGB 11.9 g/dl 07/30/2018 Hgb & Hct Ord65 HCT 36.1 % 07/30/2018 Hgb & Hct Ord65 HGB 11.8 g/dl 07/27/2018 Hgb & Hct Ord65 HCT 35.3 % 07/27/2018 Tsh Ord6 TSH (3rd IS) 1.30 uIU/mL 05/02/2018 Total Psa Ord10 PSA 1.85 ng/mL 05/02/2018 Lipid Ord30 CHOL 219 mg/dL 05/02/2018 Lipid Ord30 HDL 34.0 mg/dl 05/02/2018 Lipid Ord30 TRIG 161 mg/dL 05/02/2018 Lipid Ord30 LDL 153 mg/dL 05/02/2018 Lipid Ord30 C/HDL 6.4 Ratio 05/02/2018 Comp Metabolic Mpw434 NA 140 mEq/L 05/02/2018 Comp Metabolic Opx777 K 4.6 mEq/L 05/02/2018 Comp Metabolic Xcz515 CL 105 mEq/L 05/02/2018 Comp Metabolic Pqg689 CO2 27.0 mEq/L 05/02/2018 Comp Metabolic Mjv526 ANION GAP 13 05/02/2018 Comp Metabolic Tci222 GLUCOSE 117 mg/dL 05/02/2018 Comp Metabolic Qdr416 Creat 1.0 mg/dL 05/02/2018 Comp Metabolic Nhm730 eGFR 80 ml/min/1.73m2 05/02/2018 Comp Metabolic Ynh142 BUN 17 mg/dL 05/02/2018 Comp Metabolic Klv924 B/C Ratio 17.3 Ratio 05/02/2018 Comp Metabolic Pko464 CALCIUM 9.6 mg/dL 05/02/2018 Comp Metabolic Zwm259 ALK PHOS 40 U/L 05/02/2018 Comp Metabolic Blz110 AST(SGOT) 19 U/L 05/02/2018 Comp Metabolic Dna411 ALT(SGPT) 24 U/L 05/02/2018 Comp Metabolic Lzn869 BILI T 0.7 mg/dL 05/02/2018 Comp Metabolic Dxd409 ALBUMIN 4.2 g/dL 05/02/2018 Comp Metabolic Wkg425 TPRO 6.4 g/dL 05/02/2018 Comp Metabolic Uwy149 GLOB 2.2 g/dL 05/02/2018 Comp Metabolic Bov650 A/G Ratio 1.9 Ratio 05/02/2018 Comp Metabolic Vfj333 Osmo 282 mOsmo 05/02/2018 Cbc With Differential [...] 30.4 pg 05/02/2018 Cbc With Differential Ord2 Armstrong% 6.1 % 05/02/2018 Cbc With Differential Ord2 [...] 1.98 K/ul 05/02/2018 Cbc With Differential Ord2 Armstrong ABS# 0.5 K/ul 05/02/2018 Cbc With Differential Ord2 Eos ABS# 0.0 K/ul 05/02/2018 Cbc With Differential Ord2 Baso ABS# 0.1 K/ul 05/02/2018 Review of Systems System Result Effective Dates Constitutional recent illness 11/09/2018 Constitutional No chills 11/09/2018 Constitutional No diaphoresis 11/09/2018 Constitutional No fever 11/09/2018 Eyes No eye erythema 11/09/2018 Ears/Nose/Throat/Neck nasal allergies 11/09/2018 Ears/Nose/Throat/Neck nasal discharge 11/09/2018 Ears/Nose/Throat/Neck postnasal drip 11/09/2018 Ears/Nose/Throat/Neck sinus congestion 11/09/2018 Ears/Nose/Throat/Neck sore throat 11/09/2018 Cardiovascular No chest pain/pressure 11/09/2018 Cardiovascular No dyspnea 11/09/2018 Respiratory No chest congestion 11/09/2018 Respiratory cough 11/09/2018 Respiratory No dyspnea 11/09/2018 Gastrointestinal No constipation 11/09/2018 Gastrointestinal No diarrhea 11/09/2018 Gastrointestinal No nausea 11/09/2018 Gastrointestinal No vomiting 11/09/2018 Dermatologic No rash 11/09/2018 Neurologic No alteration of consciousness 11/09/2018 Neurologic No mental status change 11/09/2018 Constitutional No recent illness 09/03/2018 Constitutional No chills 09/03/2018 Constitutional No fatigue 09/03/2018 Constitutional No fever 09/03/2018 Constitutional insomnia 09/03/2018 Constitutional No malaise 09/03/2018 Eyes No vision change 09/03/2018 Ears/Nose/Throat/Neck No dental pain 09/03/2018 Ears/Nose/Throat/Neck No dizziness 09/03/2018 Ears/Nose/Throat/Neck No dysphagia 09/03/2018 Ears/Nose/Throat/Neck No headache 09/03/2018 Ears/Nose/Throat/Neck No hearing loss 09/03/2018 Ears/Nose/Throat/Neck No nasal allergies 09/03/2018 Ears/Nose/Throat/Neck No sore throat 09/03/2018 Ears/Nose/Throat/Neck No postnasal drip 09/03/2018 Ears/Nose/Throat/Neck No sinus congestion 09/03/2018 Cardiovascular No chest pain/pressure 09/03/2018 Cardiovascular No dyspnea 09/03/2018 Cardiovascular No edema 09/03/2018 Cardiovascular No exercise intolerance 09/03/2018 Cardiovascular No fatigue 09/03/2018 Cardiovascular No near-syncope/dizziness 09/03/2018 Respiratory No chest tightness 09/03/2018 Respiratory No cough 09/03/2018 Respiratory No dyspnea 09/03/2018 Respiratory No pedal edema 09/03/2018 Gastrointestinal No abdominal pain 09/03/2018 Gastrointestinal No constipation 09/03/2018 Gastrointestinal No diarrhea 09/03/2018 Gastrointestinal No gastroesophageal reflux 09/03/2018 Gastrointestinal No nausea 09/03/2018 Gastrointestinal No vomiting 09/03/2018 Genitourinary/Nephrology No dysuria 09/03/2018 Genitourinary/Nephrology No nocturia 09/03/2018 Genitourinary/Nephrology No urinary incontinence 09/03/2018 Musculoskeletal No stiffness 09/03/2018 Musculoskeletal No swelling 09/03/2018 Musculoskeletal No muscle weakness 09/03/2018 Musculoskeletal No myalgias 09/03/2018 Dermatologic No rash 09/03/2018 Dermatologic No sores 09/03/2018 Neurologic No dizziness 09/03/2018 Neurologic No headache 09/03/2018 Neurologic No neck pain 09/03/2018 Neurologic No syncope 09/03/2018 Psychiatric No anxiety 09/03/2018 Psychiatric No depression 09/03/2018 Constitutional recent illness 07/23/2018 Constitutional No chills 07/23/2018 Constitutional No diaphoresis 07/23/2018 Constitutional No fever 07/23/2018 Eyes No eye erythema 07/23/2018 Ears/Nose/Throat/Neck No nasal discharge 07/23/2018 Cardiovascular No chest pain/pressure 07/23/2018 Cardiovascular No dyspnea 07/23/2018 Respiratory No cough 07/23/2018 Respiratory No chest congestion 07/23/2018 Gastrointestinal abdominal pain 07/23/2018 Gastrointestinal No constipation 07/23/2018 Gastrointestinal diarrhea 07/23/2018 Gastrointestinal hematochezia 07/23/2018 Gastrointestinal melena 07/23/2018 Gastrointestinal No vomiting 07/23/2018 Gastrointestinal No nausea 07/23/2018 Gastrointestinal No hematemesis 07/23/2018 Gastrointestinal gastroesophageal reflux 07/23/2018 Musculoskeletal No joint complaint 07/23/2018 Dermatologic No rash 07/23/2018 Neurologic No alteration of consciousness 07/23/2018 Neurologic No mental status change 07/23/2018 Constitutional No recent illness 06/05/2018 Constitutional No chills 06/05/2018 Constitutional No fatigue 06/05/2018 Constitutional No fever 06/05/2018 Constitutional No insomnia 06/05/2018 Constitutional No malaise 06/05/2018 Eyes No vision change 06/05/2018 Ears/Nose/Throat/Neck No dental pain 06/05/2018 Ears/Nose/Throat/Neck No dizziness 06/05/2018 Ears/Nose/Throat/Neck No dysphagia 06/05/2018 Ears/Nose/Throat/Neck No headache 06/05/2018 Ears/Nose/Throat/Neck No hearing loss 06/05/2018 Ears/Nose/Throat/Neck No nasal allergies 06/05/2018 Ears/Nose/Throat/Neck No sore throat 06/05/2018 Ears/Nose/Throat/Neck No postnasal drip 06/05/2018 Ears/Nose/Throat/Neck No sinus congestion 06/05/2018 Cardiovascular No chest pain/pressure 06/05/2018 Cardiovascular No dyspnea 06/05/2018 Cardiovascular No edema 06/05/2018 Cardiovascular No exercise intolerance 06/05/2018 Cardiovascular No fatigue 06/05/2018 Cardiovascular No near-syncope/dizziness 06/05/2018 Respiratory No chest tightness 06/05/2018 Respiratory No cough 06/05/2018 Respiratory No dyspnea 06/05/2018 Respiratory No pedal edema 06/05/2018 Gastrointestinal No abdominal pain 06/05/2018 Gastrointestinal No constipation 06/05/2018 Gastrointestinal No diarrhea 06/05/2018 Gastrointestinal No gastroesophageal reflux 06/05/2018 Gastrointestinal No nausea 06/05/2018 Gastrointestinal No vomiting 06/05/2018 Genitourinary/Nephrology No dysuria 06/05/2018 Genitourinary/Nephrology No nocturia 06/05/2018 Genitourinary/Nephrology No urinary incontinence 06/05/2018 Musculoskeletal No stiffness 06/05/2018 Musculoskeletal No swelling 06/05/2018 Musculoskeletal No muscle weakness 06/05/2018 Musculoskeletal No myalgias 06/05/2018 Dermatologic No rash 06/05/2018 Dermatologic No sores 06/05/2018 Neurologic No dizziness 06/05/2018 Neurologic No headache 06/05/2018 Neurologic No neck pain 06/05/2018 Neurologic No syncope 06/05/2018 Psychiatric No anxiety 06/05/2018 Psychiatric No depression 06/05/2018 Constitutional No recent illness 05/01/2018 Constitutional No chills 05/01/2018 Constitutional No fatigue 05/01/2018 Constitutional No fever 05/01/2018 Constitutional No insomnia 05/01/2018 Constitutional No malaise 05/01/2018 Eyes No vision change 05/01/2018 Ears/Nose/Throat/Neck No dental pain 05/01/2018 Ears/Nose/Throat/Neck No dizziness 05/01/2018 Ears/Nose/Throat/Neck No dysphagia 05/01/2018 Ears/Nose/Throat/Neck No headache 05/01/2018 Ears/Nose/Throat/Neck No hearing loss 05/01/2018 Ears/Nose/Throat/Neck No nasal allergies 05/01/2018 Ears/Nose/Throat/Neck No sore throat 05/01/2018 Ears/Nose/Throat/Neck No postnasal drip 05/01/2018 Ears/Nose/Throat/Neck No sinus congestion 05/01/2018 Cardiovascular No chest pain/pressure 05/01/2018 Cardiovascular No dyspnea 05/01/2018 Cardiovascular No edema 05/01/2018 Cardiovascular No exercise intolerance 05/01/2018 Cardiovascular No fatigue 05/01/2018 Cardiovascular No near-syncope/dizziness 05/01/2018 Respiratory No chest tightness 05/01/2018 Respiratory No cough 05/01/2018 Respiratory No dyspnea 05/01/2018 Respiratory No pedal edema 05/01/2018 Gastrointestinal No abdominal pain 05/01/2018 Gastrointestinal No constipation 05/01/2018 Gastrointestinal No diarrhea 05/01/2018 Gastrointestinal No gastroesophageal reflux 05/01/2018 Gastrointestinal No nausea 05/01/2018 Gastrointestinal No vomiting 05/01/2018 Genitourinary/Nephrology No dysuria 05/01/2018 Genitourinary/Nephrology No nocturia 05/01/2018 Genitourinary/Nephrology No urinary incontinence 05/01/2018 Musculoskeletal No stiffness 05/01/2018 Musculoskeletal No swelling 05/01/2018 Musculoskeletal No muscle weakness 05/01/2018 Musculoskeletal No myalgias 05/01/2018 Dermatologic No rash 05/01/2018 Dermatologic No sores 05/01/2018 Neurologic No dizziness 05/01/2018 Neurologic No headache 05/01/2018 Neurologic No neck pain 05/01/2018 Neurologic No syncope 05/01/2018 Psychiatric No anxiety 05/01/2018 Psychiatric No depression 05/01/2018 Physical Exam Exam Name System Name Item Name Status Result Effective Dates Notes Full Exam - ENT Constitutional general appearance Overall: well nourished 11/09/2018 None Full Exam - ENT Constitutional general appearance Overall: well developed 11/09/2018 None Full Exam - ENT Constitutional general appearance Overall: in no acute distress 11/09/2018 None Full Exam - ENT Ears/Nose/Throat otoscopic exam Overall: external auditory canals normal 11/09/2018 None Full Exam - ENT Ears/Nose/Throat otoscopic exam Left tympanic membrane: air-fluid level 11/09/2018 None Full Exam - ENT Ears/Nose/Throat otoscopic exam Right tympanic membrane: air-fluid level 11/09/2018 None Full Exam - ENT Ears/Nose/Throat lips/teeth/gingiva Overall: benign lips 11/09/2018 None Full Exam - ENT Ears/Nose/Throat oropharynx Overall: oral mucosa clear 11/09/2018 None Full Exam - ENT Ears/Nose/Throat oropharynx Posterior Pharynx: clear post nasal drainage 11/09/2018 None Full Exam - ENT Ears/Nose/Throat oropharynx Posterior Pharynx: erythema 11/09/2018 None Full Exam - ENT Respiratory inspection Overall: no retractions 11/09/2018 None Full Exam - ENT Respiratory inspection Overall: normal rate 11/09/2018 None Full Exam - ENT Respiratory auscultation Overall: breath sounds clear bilaterally 11/09/2018 None Full Exam - ENT Cardiovascular auscultation of heart Rate: normal rate 11/09/2018 None Full Exam - ENT Cardiovascular auscultation of heart Rhythm: regular rhythm 11/09/2018 None Full Exam - ENT Lymphatic palpation of lymph nodes Overall: anterior cervical chain benign 11/09/2018 None Full Exam - ENT Lymphatic palpation of lymph nodes Overall: posterior cervical chain benign 11/09/2018 None Full Exam - ENT Neurologic mood and affect Overall: normal mood 11/09/2018 None Full Exam - ENT Neurologic mood and affect Overall: normal affect 11/09/2018 None Full Exam - ENT Neurologic orientation Overall: oriented to person, place and time 11/09/2018 None Full Exam - General 1994 Constitutional general appearance Development: well developed 09/03/2018 None Full Exam - General 1994 Constitutional general appearance Development: appears stated age 0409/03/2018 None Full Exam - General 1994 Constitutional general appearance Hygiene/Attention to Grooming: good hygiene 09/03/2018 None Full Exam - General 1994 Eyes conjunctiva/eyelids Overall: conjunctiva clear 09/03/2018 None Full Exam - General 1994 Eyes conjunctiva/eyelids Overall: cornea clear 09/03/2018 None Full Exam - General 1994 Eyes conjunctiva/eyelids Overall: eyelids normal 09/03/2018 None Full Exam - General 1994 Eyes pupils and irises Overall: pupils equal, round, reactive to light and accomodation 09/03/2018 None Full Exam - General 1994 Ears/Nose/Throat otoscopic exam Overall: external auditory canals clear 09/03/2018 None Full Exam - General 1994 Ears/Nose/Throat otoscopic exam Overall: tympanic membranes clear 09/03/2018 None Full Exam - General 1994 Ears/Nose/Throat lips/teeth/gingiva Overall: benign lips 09/03/2018 None Full Exam - General 1994 Ears/Nose/Throat lips/teeth/gingiva Overall: normal dentition 09/03/2018 None Full Exam - General 1994 Ears/Nose/Throat oral cavity/pharynx/larynx Overall: oral mucosa clear 09/03/2018 None Full Exam - General 1994 Ears/Nose/Throat oral cavity/pharynx/larynx Overall: oropharyngeal mucosa clear 09/03/2018 None Full Exam - General 1994 Ears/Nose/Throat oral cavity/pharynx/larynx Overall: hypopharynx benign 09/03/2018 None Full Exam - General 1994 Ears/Nose/Throat oral cavity/pharynx/larynx Overall: no masses 09/03/2018 None Full Exam - General 1994 Respiratory auscultation Overall: breath sounds clear bilaterally 09/03/2018 None Full Exam - General 1994 Respiratory respiratory effort/rhythm Overall: no retractions 09/03/2018 None Full Exam - General 1994 Respiratory respiratory effort/rhythm Overall: normal rate 09/03/2018 None Full Exam - General 1994 Cardiovascular extremities Overall: no clubbing 09/03/2018 None Full Exam - General 1994 Cardiovascular auscultation of heart Overall: regular rate 09/03/2018 None Full Exam - General 1994 Cardiovascular auscultation of heart Systolic murmur: holosystolic 09/03/2018 None Full Exam - General 1994 Cardiovascular auscultation of heart Systolic murmur grade: IV/ 09/03/2018 None Full Exam - General 1994 Abdomen abdominal exam Overall: no tenderness 09/03/2018 None Full Exam - General 1994 Abdomen abdominal exam Overall: normal bowel sounds 09/03/2018 None Full Exam - General 1994 Musculoskeletal spine, ribs and pelvis Overall: spine benign 09/03/2018 None Full Exam - General 1994 Musculoskeletal spine, ribs and pelvis Overall: sacroiliac joint benign 09/03/2018 None Full Exam - General 1994 Musculoskeletal spine, ribs and pelvis Overall: good posture 09/03/2018 None Full Exam - General 1994 Musculoskeletal head and neck Overall: head atraumatic 09/03/2018 None Full Exam - General 1994 Musculoskeletal head and neck Overall: cervical spine benign 09/03/2018 None Full Exam - General 1994 Neurologic cranial nerves Overall: crainial nerves 2 - 12 grossly intact 09/03/2018 None Full Exam - General 1994 Psychiatric orientation/consciousness Overall: oriented to person, place and time 09/03/2018 None Full Exam - General 1994 Psychiatric mood and affect Overall: normal mood and affect 09/03/2018 None Full Exam - General 1994 Constitutional general appearance Overall: well developed 07/23/2018 None Full Exam - General 1994 Constitutional general appearance Overall: in no acute distress 07/23/2018 None Full Exam - General 1994 Constitutional general appearance Overall: well nourished 07/23/2018 None Full Exam - General 1994 Eyes conjunctiva/eyelids Overall: eyelids normal 07/23/2018 None Full Exam - General 1994 Eyes conjunctiva/eyelids Overall: cornea clear 07/23/2018 None Full Exam - General 1994 Eyes conjunctiva/eyelids Overall: conjunctiva clear 07/23/2018 None Full Exam [...] None Full Exam - General 1994 Eyes conjunctiva/eyelids Overall: conjunctiva clear 06/05/2018 None Full Exam - General 1994 Eyes conjunctiva/eyelids Overall: cornea clear 06/05/2018 None Full Exam - General 1994 Eyes conjunctiva/eyelids Overall: eyelids normal 06/05/2018 None Full Exam [...] None Full Exam - General 1994 Eyes conjunctiva/eyelids Overall: conjunctiva clear 05/01/2018 None Full Exam - General 1994 Eyes conjunctiva/eyelids Overall: cornea clear 05/01/2018 None Full Exam - General 1994 Eyes conjunctiva/eyelids Overall: eyelids normal 05/01/2018 None Full Exam [...] Carotid pulse: carotid bruit 05/01/2018 None Procedures Procedure Codes Date TRIAMCINOLONE ACET INJ NOS CPT-4: J3301 11/09/2018 THER/PROPH/DIAG INJ SC/IM CPT-4: 47152 11/09/2018 Vital Signs Date Vital 11/09/2018 Blood Pressure 1: 118/68 Code: 8480-6 BMI: 28.6 Code: 16021-9 Heart Rate 1: 80 bpm Height: 5'8" SpO2: 98% Weight: 188 lbs 09/03/2018 Blood Pressure 1: 110/70 Code: 8480-6 BMI: 28.1 Code: 68809-6 Heart Rate 1: 75 bpm Height: 5'8" SpO2: 98% Weight: 185 lbs 07/23/2018 Blood Pressure 1: 110/56 Code: 8480-6 BMI: 28.6 Code: 47319-5 Heart Rate 1: 85 bpm Height: 5'8" SpO2: 97% Weight: 188 lbs 06/05/2018 Blood Pressure 1: 142/66 Code: 8480-6 BMI: 30.0 Code: 31836-1 Heart Rate 1: 75 bpm Height: 5'8" SpO2: 98% Weight: 197 lbs 05/01/2018 Blood Pressure 1: 138/88 Code: 8480-6 BMI: 29.5 Code: 97168-5 Heart Rate 1: 74 bpm Height: 5'8" SpO2: 95% Weight: 194 lbs Functional Status No Functional Status data History of Present Illness Symptom Name Status Result Effective Date Notes Location in the throat 11/09/2018 None Location in the lung 11/09/2018 None Quality acute 11/09/2018 None Onset and Resolution ongoing 11/09/2018 None Pertinent Findings Denies dyspnea 11/09/2018 None Quality intermittent 09/03/2018 None Onset of Symptom 3 years ago 09/03/2018 None Pertinent Findings Denies fever 09/03/2018 None Quality intermittent 09/03/2018 heart murmur- reports has had all his life Onset and Resolution ongoing 09/03/2018 None Onset of Symptom Denies _ years ago 09/03/2018 None Onset of Symptom Denies during childhood 09/03/2018 None Frequency of Episodes daily 09/03/2018 None Pertinent Findings Denies dizziness 09/03/2018 None Pertinent Findings Denies dyspnea 09/03/2018 None Pertinent Findings Denies lightheadedness 09/03/2018 None Pertinent Findings Denies syncope 09/03/2018 None Quality constant 07/23/2018 None Onset and Resolution sudden in onset [...] data Encounters Encounter Performer Location Codes Date EST. PATIENT, LEVEL III Diagnosis: Acute laryngopharyngitis[ICD10: J06.0] Diagnosis: Other allergic rhinitis[ICD10: J30.89] Diagnosis: Cough[ICD10: R05] Dina Can MD, [facility] CPT-4: 03731 11/09/2018 ([id number]) 21410 EST. 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 PATIENT, LEVEL III Diagnosis: Melena[ICD10: K92.1] Diagnosis: Diverticulitis of large intestine without perforation or abscess without bleeding[ICD10: K57.32] Dina Can MD, [facility] CPT-4: 36202 07/23/2018 ([id number]) 68367 EST. 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 Discussed natural and expected course of this diagnosis and need to alert me if symptoms do not follow expected course, or if any worse. RX sent to patient's pharmacy. Allergies - chronic - recommended pt to use allergy medication as prescribed. Pt has been counseled as to the appropriate use of the medication. Pt to call if allergy symptoms are not controlled with the medication. If using nasal spray, instructions as follows: Nasal spray- use twice daily, one spray per nostril twice daily, after 30 minutes, rinse out nose with saline spray.. Use opposite hand per nostril to spray in the nasal steroid allergy spray. 11/09/2018 Appointment: Dina Mehta WPtel: [address] [facility] (30 min) Complex 11/09/2018 Patient Education: Patient Medication Summary Completed 11/09/2018 Visit Plan: Hyperlipidemia - pt has been [...] liver response to medications. pravastatin 20mg daily Insomnia - Pt has been advised to increase the light in the house during the day, and start dimming the lights during the evening hours. Pt has been advised to cut out caffeine after 5pm. Daytime napping worsens night time insomnia. 09/03/2018 Appointment: Delmi Can WPtel: [facility]6 [facility] (15 min) Moderate 09/03/2018 Patient Education: Patient Medication Summary Completed 09/03/2018 Patient Education: Cholesterol Management Completed 09/03/2018 Patient Education: Patient Medication Summary Completed 07/30/2018 Care Plan: Hgb & Hct Pending 07/30/2018 Visit Plan: Diverticulitis - rx for antibiotic sent to pt's pharmacy - pt advised to avoid seeds, nuts, popcorn, or any other food which has been proven to upset the pt's stomach. Melena - will refer to Dr. Gonzalez for EGD/Colonoscopy 07/23/2018 Appointment: Dina Mehta WPtel: [address] [facility] (15 min) Moderate 07/23/2018 Patient Education: Patient Medication Summary Completed 07/23/2018 Care Plan: Referral Order SNOMED-CT : 081162634 Pending 07/23/2018 Visit Plan: Hyperlipidemia - pt [...] 20mg daily 06/05/2018 Appointment: Delmi Can WPtel: [address] [place] [address] (15 min) Moderate 06/05/2018 Patient Education: Patient [...] with melatonin. 05/01/2018 Appointment: Delmi Can WPtel: [address] [place] [address] New Patient 05/01/2018 Patient Education: Patient Medication Summary Completed 05/01/2018 Care Plan: Referral Order SNOMED-CT : [id number] Pending 05/01/2018 Referral: Yesenia Mesa Referral Appointment [...] will refer to Dr. Gonzalez for EGD/Colonoscopy Steroid shot today augmentin - for ear infection take a probiotic 2-3 times a day while on the antibiotic to prevent diarrhea if no improvement will start you on prednisone pills if needed . URI - Pt advised to increase fluids, vitamin C. Discussed natural and expected course of this diagnosis and need to alert me if symptoms do not follow expected course, or if any worse. RX sent to patient's pharmacy. Allergies - chronic - recommended pt to use allergy medication as prescribed. Pt has been counseled as to the appropriate use of the medication. Pt to call if allergy symptoms are not controlled with the medication. If using nasal spray, instructions as follows: Nasal spray- use twice daily, one spray per nostril twice daily, after 30 minutes, rinse out nose with saline spray.. Use opposite hand per nostril to spray in the nasal steroid allergy spray. . Hyperlipidemia - pt has been counseled [...] liver response to medications. pravastatin 20mg daily Nasal spray- use twice daily, one spray per nostril twice daily, after 30 minutes, rinse out nose with saline spray.. Use opposite hand per nostril to spray in the nasal steroid allergy spray. . Hyperlipidemia - pt has been counseled [...] liver response to medications. pravastatin 20mg daily Insomnia - Pt has been advised to increase the light in the house during the day, and start dimming the lights during the evening hours. Pt has been advised to cut out caffeine after 5pm. Daytime napping worsens night time insomnia. . Heart murmur - loud - best [...]
--- OUTSIDE RECORDS SUMMARY | 2018-12-02 06:25 | XMS REPORT | CCD ---
Author Author Delmi Can Organization [facility] Address [address] [place] [address] Phone Care Team Providers Care Clinical Research Nurse Name Role Phone PP Unavailable CCM Unavailable Summary Purpose Interface Exchange Insurance Providers Payer name Policy type / Coverage type Covered libertarian ID Effective Begin Date Effective End Date WPS Medicare Part B Medicare Part B [id number] Unknown Cigna Medicare Part B [id number] Unknown Family history Mother Diagnosis Age At Onset Arthritis Unknown Cancer Unknown Father Diagnosis Age At Onset Coronary Artery Disease Unknown Alcoholism Unknown Social History Social History Element Codes Description Effective Dates Marital status Unknown Tami 05/01/2018 Number of children Unknown 1 05/01/2018 Employment 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 prednisone 20 mg tablet RxNorm: 507432 2 Tablet(s) PO daily 11/16/2018 11/15/2018 Inactive may use other mg tab if 20mg not available. doxycycline hyclate 100 mg tablet,delayed release RxNorm: 677242 1 Tablet(s) PO BID 11/16/2018 11/15/2018 Inactive Augmentin 500 mg-125 mg tablet RxNorm: 114770 1 Tablet(s) PO TID 11/09/2018 11/15/2018 Inactive Kenalog 40 mg/mL suspension for injection RxNorm: 6267756 Milliliter(s) Inj 11/09/2018 11/09/2018 Inactive montelukast 10 mg tablet RxNorm: 807875 1 Tablet(s) PO daily 09/03/2018 08/28/2019 Active trazodone 50 mg tablet RxNorm: 398146 1/2-1 Tablet(s) PO QHS as needed 08/30/2018 11/27/2018 Active trazodone 50 mg tablet RxNorm: 898997 1/2-1 Tablet(s) PO QHS 07/02/2018 07/01/2018 Inactive trazodone 50 mg tablet RxNorm: 834806 1/2-1 Tablet(s) PO QHS as needed 07/02/2018 08/29/2018 Inactive pravastatin 20 mg tablet RxNorm: 143829 1 Tablet(s) PO daily 06/05/2018 07/03/2018 Inactive Advil Cold and Sinus 30 mg-200 mg capsule RxNorm: 1884782 1 Capsule(s) PO UD No Start Date Active folic acid 1 mg tablet RxNorm: 790159 1 Tablet(s) PO daily No Start Date Active magnesium oxide 250 mg tablet RxNorm: 993558 1 Tablet(s) PO daily No Start Date Active lisinopril 10 mg tablet RxNorm: 111305 1 Tablet(s) PO daily No Start Date Active garlic 1,000 mg capsule RxNorm: 886383 1 Capsule(s) PO daily as needed No Start Date Active zinc 50 mg tablet RxNorm: 1 Tablet(s) PO daily No Start Date Active melatonin 10 mg tablet RxNorm: 7234152 1 Tablet(s) PO daily No Start Date Active Vitamin D3 5,000 unit tablet RxNorm: 180889 1 Tablet(s) PO daily No Start Date Active cyanocobalamin (vit B-12) 5,000 mcg sublingual tablet RxNorm: 333370 1 Tablet(s) SL daily No Start Date Active atorvastatin 10 mg tablet RxNorm: 259304 1/2 Tablet(s) PO daily No Start Date 10/28/2018 Inactive Medication Administered Medication Codes Instructions Start Date Status Kenalog 40 mg/mL suspension for injection RxNorm: 3282023 Milliliter 11/09/2018 No longer Active Immunizations No [...] Ord30 C/HDL 6.4 Ratio 05/02/2018 Comp Metabolic Fhv224 NA 140 mEq/L 05/02/2018 Comp Metabolic Fbz842 K 4.6 mEq/L 05/02/2018 Comp Metabolic Zhp309 CL 105 mEq/L 05/02/2018 Comp Metabolic Lqe291 CO2 27.0 mEq/L 05/02/2018 Comp Metabolic Emn055 ANION GAP 13 05/02/2018 Comp Metabolic Dvk090 GLUCOSE 117 mg/dL 05/02/2018 Comp Metabolic Onq660 Creat 1.0 mg/dL 05/02/2018 Comp Metabolic Utm016 eGFR 80 ml/min/1.73m2 05/02/2018 Comp Metabolic Qsg220 BUN 17 mg/dL 05/02/2018 Comp Metabolic Qdl266 B/C Ratio 17.3 Ratio 05/02/2018 Comp Metabolic Msf647 CALCIUM 9.6 mg/dL 05/02/2018 Comp Metabolic Ntu738 ALK PHOS 40 U/L 05/02/2018 Comp Metabolic Sqb274 AST(SGOT) 19 U/L 05/02/2018 Comp Metabolic Ikt748 ALT(SGPT) 24 U/L 05/02/2018 Comp Metabolic Xpt677 BILI T 0.7 mg/dL 05/02/2018 Comp Metabolic Kpn859 ALBUMIN 4.2 g/dL 05/02/2018 Comp Metabolic Ref209 TPRO 6.4 g/dL 05/02/2018 Comp Metabolic Cdw245 GLOB 2.2 g/dL 05/02/2018 Comp Metabolic Mkg638 A/G Ratio 1.9 Ratio 05/02/2018 Comp Metabolic Mpk869 Osmo 282 mOsmo 05/02/2018 Cbc With Differential [...] 30.4 pg 05/02/2018 Cbc With Differential Ord2 [place]% 6.1 % 05/02/2018 Cbc With Differential Ord2 [...] 1.98 K/ul 05/02/2018 Cbc With Differential Ord2 [place] ABS# 0.5 K/ul 05/02/2018 Cbc With Differential [...] lips 07/23/2018 None Full Exam - General 1995 Ears/Nose/Throat [...] CPT-4: J3301 11/09/2018 THER/PROPH/DIAG INJ SC/IM CPT-4: 09134 11/09/2018 Vital Signs Date Vital 11/09/2018 Blood Pressure 1: 118/68 Code: 8480-6 BMI: 28.6 Code: 58400-9 Heart Rate 1: 80 bpm Height: 5'8" SpO2: 98% Weight: 188 lbs 09/03/2018 Blood Pressure 1: 110/70 Code: 8480-6 BMI: 28.1 Code: 05280-4 Heart Rate 1: 75 bpm Height: 5'8" SpO2: 98% Weight: 185 lbs 07/23/2018 Blood Pressure 1: 110/56 Code: 8480-6 BMI: 28.6 Code: 22277-0 Heart Rate 1: 85 bpm Height: 5'8" SpO2: 97% Weight: 188 lbs 06/05/2018 Blood Pressure 1: 142/66 Code: 8480-6 BMI: 30.0 Code: 71376-2 Heart Rate 1: 75 bpm Height: 5'8" SpO2: 98% Weight: 197 lbs 05/01/2018 Blood Pressure 1: 138/88 Code: 8480-6 BMI: 29.5 Code: 08111-1 Heart Rate 1: 74 bpm Height: 5'8" [...] data Encounters Encounter Performer Location Codes Date 17951 EST. PATIENT, LEVEL III Diagnosis: Acute laryngopharyngitis[ICD10: J06.0] Diagnosis: Other allergic rhinitis[ICD10: J30.89] Diagnosis: Cough[ICD10: R05] Dina Can MD, [facility] CPT-4: 33681 11/09/2018 ([id number]) 25514 EST. 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 PATIENT, LEVEL III Diagnosis: Melena[ICD10: K92.1] Diagnosis: Diverticulitis of large intestine without perforation or abscess without bleeding[ICD10: K57.32] Dina Can MD, [facility] CPT-4: 42460 07/23/2018 ([id number]) 54732 EST. 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 11/09/2018 [facility]ment[facility] ([facility] Complex 11/09/2018 Patient Education: Patient [...] time insomnia. 09/03/2018 [facility]ment: [facility] (15 min) Moderate 09/03/2018 Patient Education: Patient [...] for EGD/Colonoscopy 07/23/2018 Appointment: Dina Mehta WPtel: [facility] (15 min) Moderate 07/23/2018 Patient Education: Patient Medication Summary Completed 07/23/2018 Care Plan: Referral Order SNOMED-CT : 119127279 Pending 07/23/2018 Visit Plan: Hyperlipidemia - pt [...] 20mg daily 06/05/2018 Appointment: Delmi Can WPtel: [facility]0 [facility] (15 min) Moderate 06/05/2018 Patient Education: [...] with melatonin. 05/01/2018 Appointment: Delmi Can WPtel: [facility]9 [facility] New Patient 05/01/2018 Patient Education: Patient Medication Summary Completed 05/01/2018 Care Plan: Referral Order SNOMED-CT : 594542350 Pending 05/01/2018 Referral: Yesenia Mesa Referral Appointment [...]
--- OUTSIDE RECORDS SUMMARY | 2018-12-02 06:26 | XMS REPORT | CCD ---
Author Author Delmi Can Organization [facility] Address [address] [place] [address] Phone Care Team Providers Care Cement Truck Driver Name Role Phone PP Unavailable CCM Unavailable Summary Purpose Interface Exchange Insurance Providers Payer name Policy type / Coverage type Covered democrat ID Effective Begin Date Effective End Date WPS Medicare Part B Medicare Part B [id number] Unknown Cigna Medicare Part B [id number] Unknown Family history Mother Diagnosis Age At Onset Arthritis Unknown Cancer Unknown Father Diagnosis Age At Onset Coronary Artery Disease Unknown Alcoholism Unknown Social History Social History Element Codes Description Effective Dates Marital status Unknown Tami 05/01/2018 Number of children Unknown 1 05/01/2018 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/01/[address]: 7794918 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 1965 05/01/[address]: 205372503 Never drinks alcohol 05/01/2018 Allergies, Adverse Reactions, [...] Instructions Augmentin 500 mg-125 mg tablet RxNorm: 933723 1 Tablet(s) PO TID 11/09/2018 11/15/2018 Active Kenalog 40 mg/mL suspension for injection RxNorm: 7523451 Milliliter(s) Inj 11/09/2018 11/09/2018 Inactive montelukast 10 mg tablet RxNorm: 532185 1 Tablet(s) PO daily 09/03/2018 08/28/2019 Active trazodone 50 mg tablet RxNorm: 567692 1/2-1 Tablet(s) PO QHS as needed 08/30/2018 11/27/2018 Active trazodone 50 mg tablet RxNorm: 194877 1/2-1 Tablet(s) PO QHS 07/02/2018 07/01/2018 Inactive trazodone 50 mg tablet RxNorm: 767106 1/2-1 Tablet(s) PO QHS as needed 07/02/2018 08/29/2018 Inactive pravastatin 20 mg tablet RxNorm: 824749 1 Tablet(s) PO daily 06/05/2018 07/03/2018 Inactive Advil Cold and Sinus 30 mg-200 mg capsule RxNorm: 0302235 1 Capsule(s) PO UD No Start Date Active folic acid 1 mg tablet RxNorm: 261496 1 Tablet(s) PO daily No Start Date Active magnesium oxide 250 mg tablet RxNorm: 762648 1 Tablet(s) PO daily No Start Date Active lisinopril 10 mg tablet RxNorm: 053151 1 Tablet(s) PO daily No Start Date Active garlic 1,000 mg capsule RxNorm: 683726 1 Capsule(s) PO daily as needed No Start Date Active zinc 50 mg tablet RxNorm: 1 Tablet(s) PO daily No Start Date Active melatonin 10 mg tablet RxNorm: 6476846 1 Tablet(s) PO daily No Start Date Active Vitamin D3 5,000 unit tablet RxNorm: 546717 1 Tablet(s) PO daily No Start Date Active cyanocobalamin (vit B-12) 5,000 mcg sublingual tablet RxNorm: 598659 1 Tablet(s) SL daily No Start Date Active atorvastatin 10 mg tablet RxNorm: 425120 1/2 Tablet(s) PO daily No Start Date 10/28/2018 Inactive Medication Administered Medication Codes Instructions Start Date Status Kenalog 40 mg/mL suspension for injection RxNorm: 2738543 Milliliter 11/09/2018 No longer Active Immunizations No [...] Ord30 C/HDL 6.4 Ratio 05/02/2018 Comp Metabolic Adb766 NA 140 mEq/L 05/02/2018 Comp Metabolic Eia463 K 4.6 mEq/L 05/02/2018 Comp Metabolic Eru420 CL 105 mEq/L 05/02/2018 Comp Metabolic Wye169 CO2 27.0 mEq/L 05/02/2018 Comp Metabolic Zcb879 ANION GAP 13 05/02/2018 Comp Metabolic Xey341 GLUCOSE 117 mg/dL 05/02/2018 Comp Metabolic Eza373 Creat 1.0 mg/dL 05/02/2018 Comp Metabolic Cbn975 eGFR 80 ml/min/1.73m2 05/02/2018 Comp Metabolic Bpv720 BUN 17 mg/dL 05/02/2018 Comp Metabolic Gpr656 B/C Ratio 17.3 Ratio 05/02/2018 Comp Metabolic Pxz723 CALCIUM 9.6 mg/dL 05/02/2018 Comp Metabolic Xmi273 ALK PHOS 40 U/L 05/02/2018 Comp Metabolic Qya608 AST(SGOT) 19 U/L 05/02/2018 Comp Metabolic Ebb258 ALT(SGPT) 24 U/L 05/02/2018 Comp Metabolic Pnt752 BILI T 0.7 mg/dL 05/02/2018 Comp Metabolic Knh476 ALBUMIN 4.2 g/dL 05/02/2018 Comp Metabolic Htq864 TPRO 6.4 g/dL 05/02/2018 Comp Metabolic Guy081 GLOB 2.2 g/dL 05/02/2018 Comp Metabolic Hgh868 A/G Ratio 1.9 Ratio 05/02/2018 Comp Metabolic Zjl198 Osmo 282 mOsmo 05/02/2018 Cbc With Differential [...] 30.4 pg 05/02/2018 Cbc With Differential Ord2 [place]% 6.1 % 05/02/2018 Cbc With Differential Ord2 [...] 1.98 K/ul 05/02/2018 Cbc With Differential Ord2 [place] ABS# 0.5 K/ul 05/02/2018 Cbc With Differential [...] TRIAMCINOLONE ACET INJ NOS CPT-4: J3301 11/09/2018 Vital Signs Date Vital 11/09/2018 Blood Pressure 1: 118/68 Code: 8480-6 BMI: 28.6 Code: 41435-8 Heart Rate 1: 80 bpm Height: 5'8" SpO2: 98% Weight: 188 lbs 09/03/2018 Blood Pressure 1: 110/70 Code: 8480-6 BMI: 28.1 Code: 31009-4 Heart Rate 1: 75 bpm Height: 5'8" SpO2: 98% Weight: 185 lbs 07/23/2018 Blood Pressure 1: 110/56 Code: 8480-6 BMI: 28.6 Code: 98327-5 Heart Rate 1: 85 bpm Height: 5'8" SpO2: 97% Weight: 188 lbs 06/05/2018 Blood Pressure 1: 142/66 Code: 8480-6 BMI: 30.0 Code: 31238-9 Heart Rate 1: 75 bpm Height: 5'8" SpO2: 98% Weight: 197 lbs 05/01/2018 Blood Pressure 1: 138/88 Code: 8480-6 BMI: 29.5 Code: 77836-3 Heart Rate 1: 74 bpm Height: 5'8" [...] J30.89] Diagnosis: Cough[ICD10: R05] Dina Can MD, [facility] CPT-4: 37865 11/09/2018 ([id number]) 47345 EST. 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 PATIENT, LEVEL III Diagnosis: Melena[ICD10: K92.1] Diagnosis: Diverticulitis of large intestine without perforation or abscess without bleeding[ICD10: K57.32] Dina Can MD [facility] CPT-4: 57797 07/23/2018 ([id number]) 05414 EST. 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 11/09/2018 Appointment: Dina Mehta WPtel: [facility] ([facility] Complex 11/09/2018 Patient Education: Patient [...] time insomnia. 09/03/2018 Appointment: Delmi Can WPtel: [facility] ([facility] min) Moderate 09/03/2018 Patient Education: Patient [...] for EGD/Colonoscopy 07/23/2018 Appointment: Dina Mehta WPtel: [facility] (15 min) Moderate 07/23/2018 Patient Education: Patient Medication Summary Completed 07/23/2018 Care Plan: Referral Order SNOMED-CT : 359459660 Pending 07/23/2018 Visit Plan: Hyperlipidemia - pt [...] 20mg daily 06/05/2018 Appointment: Delmi Can WPtel: [facility] (15 min) Moderate 06/05/2018 Patient Education: [...] with melatonin. 05/01/2018 Appointment: Delmi Can WPtel: [address] [place], [place] [address] New Patient 05/01/2018 Patient Education: Patient Medication Summary Completed 05/01/2018 Care Plan: Referral Order SNOMED-CT : 094488102 Pending 05/01/2018 Referral: Yesenia Mesa Referral Appointment [...]
--- OUTSIDE RECORDS SUMMARY | 2018-12-02 06:27 | XMS REPORT | CCD ---
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 Name Role Phone PP Unavailable CCM Unavailable Summary Purpose Interface Exchange Insurance Providers Payer name Policy type / Coverage type Covered constitution party ID Effective Begin Date Effective End Date WPS Medicare Part B Medicare Part B [id number] Unknown Cigna Medicare Part B [id number] Unknown Family history Mother Diagnosis Age At Onset Arthritis Unknown Cancer Unknown Father Diagnosis Age At Onset Coronary Artery Disease Unknown Alcoholism Unknown Social History Social History Element Codes Description Effective Dates Marital status Unknown Tami 05/01/2018 Number of children Unknown 1 05/01/2018 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/[address]: 8854192 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 1965 05/01/[address]: 482332501 Never drinks alcohol 05/01/2018 Allergies, Adverse Reactions, [...] Instructions Augmentin 500 mg-125 mg tablet RxNorm: 668390 1 Tablet(s) PO TID 11/09/2018 11/15/2018 Active Kenalog 40 mg/mL suspension for injection RxNorm: 8229601 Milliliter(s) Inj 11/09/2018 11/09/2018 Inactive montelukast 10 mg tablet RxNorm: 876258 1 Tablet(s) PO daily 09/03/2018 08/28/2019 Active trazodone 50 mg tablet RxNorm: 531249 1/2-1 Tablet(s) PO QHS as needed 08/30/2018 11/27/2018 Active trazodone 50 mg tablet RxNorm: 322535 1/2-1 Tablet(s) PO QHS 07/02/2018 07/01/2018 Inactive trazodone 50 mg tablet RxNorm: 996043 1/2-1 Tablet(s) PO QHS as needed 07/02/2018 08/29/2018 Inactive pravastatin 20 mg tablet RxNorm: 627463 1 Tablet(s) PO daily 06/05/2018 07/03/2018 Inactive Advil Cold and Sinus 30 mg-200 mg capsule RxNorm: 3602351 1 Capsule(s) PO UD No Start Date Active folic acid 1 mg tablet RxNorm: 272152 1 Tablet(s) PO daily No Start Date Active magnesium oxide 250 mg tablet RxNorm: 272209 1 Tablet(s) PO daily No Start Date Active lisinopril 10 mg tablet RxNorm: 504689 1 Tablet(s) PO daily No Start Date Active garlic 1,000 mg capsule RxNorm: 403020 1 Capsule(s) PO daily as needed No Start Date Active zinc 50 mg tablet RxNorm: 1 Tablet(s) PO daily No Start Date Active melatonin 10 mg tablet RxNorm: 8831675 1 Tablet(s) PO daily No Start Date Active Vitamin D3 5,000 unit tablet RxNorm: 727400 1 Tablet(s) PO daily No Start Date Active cyanocobalamin (vit B-12) 5,000 mcg sublingual tablet RxNorm: 021609 1 Tablet(s) SL daily No Start Date Active atorvastatin 10 mg tablet RxNorm: 980599 1/2 Tablet(s) PO daily No Start Date 10/28/2018 Inactive Medication Administered Medication Codes Instructions Start Date Status Kenalog 40 mg/mL suspension for injection RxNorm: 0788641 Milliliter 11/09/2018 No longer Active Immunizations No [...] Ord30 C/HDL 6.4 Ratio 05/02/2018 Comp Metabolic Olq675 NA 140 mEq/L 05/02/2018 Comp Metabolic Ldm030 K 4.6 mEq/L 05/02/2018 Comp Metabolic Eoi054 CL 105 mEq/L 05/02/2018 Comp Metabolic Ubh757 CO2 27.0 mEq/L 05/02/2018 Comp Metabolic Xql598 ANION GAP 13 05/02/2018 Comp Metabolic Aut227 GLUCOSE 117 mg/dL 05/02/2018 Comp Metabolic Jhe165 Creat 1.0 mg/dL 05/02/2018 Comp Metabolic Knw213 eGFR 80 ml/min/1.73m2 05/02/2018 Comp Metabolic Qzi997 BUN 17 mg/dL 05/02/2018 Comp Metabolic Eln772 B/C Ratio 17.3 Ratio 05/02/2018 Comp Metabolic Wux123 CALCIUM 9.6 mg/dL 05/02/2018 Comp Metabolic Hax095 ALK PHOS 40 U/L 05/02/2018 Comp Metabolic Als262 AST(SGOT) 19 U/L 05/02/2018 Comp Metabolic Ysp648 ALT(SGPT) 24 U/L 05/02/2018 Comp Metabolic Fzt604 BILI T 0.7 mg/dL 05/02/2018 Comp Metabolic Yle486 ALBUMIN 4.2 g/dL 05/02/2018 Comp Metabolic Fjf414 TPRO 6.4 g/dL 05/02/2018 Comp Metabolic Fzs340 GLOB 2.2 g/dL 05/02/2018 Comp Metabolic Dja230 A/G Ratio 1.9 Ratio 05/02/2018 Comp Metabolic Yvv131 Osmo 282 mOsmo 05/02/2018 Cbc With Differential [...] 30.4 pg 05/02/2018 Cbc With Differential Ord2 [place]% 6.1 % 05/02/2018 Cbc With Differential Ord2 [...] 1.98 K/ul 05/02/2018 Cbc With Differential Ord2 [place] ABS# 0.5 K/ul 05/02/2018 Cbc With Differential [...] 1: 118/68 Code: 8480-6 BMI: 28.6 Code: 94196-7 Heart Rate 1: 80 bpm Height: 5'8" SpO2: 98% Weight: 188 lbs 09/03/2018 Blood Pressure 1: 110/70 Code: 8480-6 BMI: 28.1 Code: 02348-2 Heart Rate 1: 75 bpm Height: 5'8" SpO2: 98% Weight: 185 lbs 07/23/2018 Blood Pressure 1: 110/56 Code: 8480-6 BMI: 28.6 Code: 82338-4 Heart Rate 1: 85 bpm Height: 5'8" SpO2: 97% Weight: 188 lbs 06/05/2018 Blood Pressure 1: 142/66 Code: 8480-6 BMI: 30.0 Code: 80048-8 Heart Rate 1: 75 bpm Height: 5'8" SpO2: 98% Weight: 197 lbs 05/01/2018 Blood Pressure 1: 138/88 Code: 8480-6 BMI: 29.5 Code: 65372-6 Heart Rate 1: 74 bpm Height: 5'8" [...] J30.89] Diagnosis: Cough[ICD10: R05] Dina Can MD, [facility] CPT-4: 56523 11/09/2018 ([id number]) 61690 EST. 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 CPT-4: 05021 09/03/2018 [id number] EST. PATIENT, LEVEL III Diagnosis: Melena[ICD10: K92.1] Diagnosis: Diverticulitis of large intestine without perforation or abscess without bleeding[ICD10: K57.32] Dina Cna MD [facility] CPT-4: 77209 07/23/2018 ([id number]) 62923 EST. PATIENT, LEVEL III Diagnosis: Mixed hyperlipidemia[ICD10: E78.2] Delmi Can MD, 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 CPT-4: 25222 05/01/2018 Plan of Care Planned Activity Notes [...] allergy spray. 11/09/2018 Appointment: Dina Mehta WPtel: [facility] ([facility] Complex 11/09/2018 Patient Education: [...] time insomnia. 09/03/2018 Appointment: Delmi Can WPtel: [facility] 3[facility] (15 min) Moderate 09/03/2018 Patient Education: Patient [...] for EGD/Colonoscopy 07/23/2018 Appointment: Dina Mehta WPtel: [facility]note 3[facility] (15 min) Moderate 07/23/2018 Patient Education: Patient Medication Summary Completed 07/23/2018 Care Plan: Referral Order SNOMED-CT : [id number] Pending 07/23/2018 Visit Plan: Hyperlipidemia - pt [...] 20mg daily 06/05/2018 Appointment: Delmi Can WPtel: [facility][note 3][address] (15 min) Moderate 06/05/2018 Patient Education: [...] with melatonin. 05/01/2018 Appointment: Delmi Can WPtel: [address] [place] [place] [id number] 05/01/2018 Patient Education: Patient Medication Summary Completed 05/01/2018 Care Plan: Referral Order SNOMED-CT : [id number] Pending 05/01/2018 Referral: Yesenia Mesa Referral Appointment [...]
--- OUTSIDE RECORDS SUMMARY | 2018-12-02 06:30 | XMS REPORT | CCD ---
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 Name Role Phone PP Unavailable CCM Unavailable Summary Purpose Interface Exchange Insurance Providers Payer name Policy type / Coverage type Covered alliance party ID Effective Begin Date Effective End Date WPS Medicare Part B Medicare Part B [id number] Unknown Cigna Medicare Part B [id number] Unknown Family history Mother Diagnosis Age At Onset Arthritis Unknown Cancer Unknown Father Diagnosis Age At Onset Coronary Artery Disease Unknown Alcoholism Unknown Social History Social History Element Codes Description Effective Dates Marital status Unknown Tami 05/01/2018 Number of children Unknown 1 05/01/2018 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/01/[address]: 4736669 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 1965 05/01/[address]: 018784446 Never drinks alcohol 05/01/2018 Allergies, Adverse Reactions, Alerts Substance Reaction Codes Entered Date Inactivated Date Status Tomatoes Unknown 05/01/2018 No Inactive Date Active * NO KNOWN DRUG ALLERGIES Unknown 05/01/2018 No Inactive Date Active Past Medical History Illness Codes Condition Status Onset Date Resolved Date 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 [...] Problems Condition Codes Effective Dates Condition Status 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 [...] Start Date Stop Date Status Fill Instructions montelukast 10 mg tablet RxNorm: 242886 1 Tablet(s) PO daily 09/03/2018 08/28/2019 Active trazodone 50 mg tablet RxNorm: 834607 1/2-1 Tablet(s) PO QHS as needed 08/30/2018 11/27/2018 Active trazodone 50 mg tablet RxNorm: 424296 1/2-1 Tablet(s) PO QHS 07/02/2018 07/01/2018 Inactive trazodone 50 mg tablet RxNorm: 506721 1/2-1 Tablet(s) PO QHS as needed 07/02/2018 08/29/2018 Inactive pravastatin 20 mg tablet RxNorm: 349402 1 Tablet(s) PO daily 06/05/2018 07/03/2018 Inactive atorvastatin 10 mg tablet RxNorm: 174124 1/2 Tablet(s) PO daily No Start Date Active folic acid 1 mg tablet RxNorm: 239555 1 Tablet(s) PO daily No Start Date Active magnesium oxide 250 mg tablet RxNorm: 518519 1 Tablet(s) PO daily No Start Date Active lisinopril 10 mg tablet RxNorm: 933223 1 Tablet(s) PO daily No Start Date Active garlic 1,000 mg capsule RxNorm: 530345 1 Capsule(s) PO daily as needed No Start Date Active zinc 50 mg tablet RxNorm: 1 Tablet(s) PO daily No Start Date Active melatonin 10 mg tablet RxNorm: 0563125 1 Tablet(s) PO daily No Start Date Active Vitamin D3 5,000 unit tablet RxNorm: 296648 1 Tablet(s) PO daily No Start Date Active cyanocobalamin (vit B-12) 5,000 mcg sublingual tablet RxNorm: 378429 1 Tablet(s) SL daily No Start Date [...] For Visit Effective Dates Notes abdominal pain 09/03/2018 hematochezia 07/23/2018 abdominal pain [...] Ord30 C/HDL 6.4 Ratio 05/02/2018 Comp Metabolic Idq629 NA 140 mEq/L 05/02/2018 Comp Metabolic Ahv108 K 4.6 mEq/L 05/02/2018 Comp Metabolic Kjo540 CL 105 mEq/L 05/02/2018 Comp Metabolic Gzy744 CO2 27.0 mEq/L 05/02/2018 Comp Metabolic Any443 ANION GAP 13 05/02/2018 Comp Metabolic Lon998 GLUCOSE 117 mg/dL 05/02/2018 Comp Metabolic Ump432 Creat 1.0 mg/dL 05/02/2018 Comp Metabolic Ekm603 eGFR 80 ml/min/1.73m2 05/02/2018 Comp Metabolic Jpa136 BUN 17 mg/dL 05/02/2018 Comp Metabolic Rne227 B/C Ratio 17.3 Ratio 05/02/2018 Comp Metabolic Mik786 CALCIUM 9.6 mg/dL 05/02/2018 Comp Metabolic Cds612 ALK PHOS 40 U/L 05/02/2018 Comp Metabolic Qve365 AST(SGOT) 19 U/L 05/02/2018 Comp Metabolic Igo700 ALT(SGPT) 24 U/L 05/02/2018 Comp Metabolic Goh991 BILI T 0.7 mg/dL 05/02/2018 Comp Metabolic Iuo961 ALBUMIN 4.2 g/dL 05/02/2018 Comp Metabolic Mqq933 TPRO 6.4 g/dL 05/02/2018 Comp Metabolic Vmy805 GLOB 2.2 g/dL 05/02/2018 Comp Metabolic Ggc355 A/G Ratio 1.9 Ratio 05/02/2018 Comp Metabolic Uqy251 Osmo 282 mOsmo 05/02/2018 Cbc With Differential [...] 30.4 pg 05/02/2018 Cbc With Differential Ord2 [place]% 6.1 % 05/02/2018 Cbc With Differential Ord2 [...] 1.98 K/ul 05/02/2018 Cbc With Differential Ord2 [place] ABS# 0.5 K/ul 05/02/2018 Cbc With Differential Ord2 Eos ABS# 0.0 K/ul 05/02/2018 Cbc With Differential Ord2 Baso ABS# 0.1 K/ul 05/02/2018 Review of Systems System Result Effective Dates Constitutional No recent illness 09/03/2018 Constitutional No [...] No Procedures data Vital Signs Date Vital 09/03/2018 Blood Pressure 1: 110/70 Code: 8480-6 BMI: 28.1 Code: 78376-7 Heart Rate 1: 75 bpm Height: 5'8" SpO2: 98% Weight: 185 lbs 07/23/2018 Blood Pressure 1: 110/56 Code: 8480-6 BMI: 28.6 Code: 87832-0 Heart Rate 1: 85 bpm Height: 5'8" SpO2: 97% Weight: 188 lbs 06/05/2018 Blood Pressure 1: 142/66 Code: 8480-6 BMI: 30.0 Code: 01721-2 Heart Rate 1: 75 bpm Height: 5'8" SpO2: 98% Weight: 197 lbs 05/01/2018 Blood Pressure 1: 138/88 Code: 8480-6 BMI: 29.5 Code: 03068-8 Heart Rate 1: 74 bpm Height: 5'8" SpO2: 95% Weight: 194 lbs Functional Status No Functional Status data History of Present Illness Symptom Name Status Result Effective Date Notes Quality intermittent 09/03/2018 None Onset of Symptom [...] data Encounters Encounter Performer Location Codes Date ([id number]) [id number] EST. 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 PATIENT, LEVEL III Diagnosis: Melena[ICD10: K92.1] Diagnosis: Diverticulitis of large intestine without perforation or abscess without bleeding[ICD10: K57.32] [facility] CPT-4: 37145 07/23/2018 ([id number]) 33974 EST. 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 09/03/2018 Patient Education: Patient Medication Summary Completed [...] Appointment: Dina Mehta WPtel: [address] [place], [place] [id number] (15 min) Moderate 07/23/2018 Patient Education: Patient Medication Summary Completed 07/23/2018 Care Plan: Referral Order SNOMED-CT : [id number] Pending 07/23/2018 Visit Plan: Hyperlipidemia - pt [...] 20mg daily 06/05/2018 Appointment: Delmi Can WPtel: [address] [place] [address] (15 min) Moderate 06/05/2018 Patient Education: Patient [...] with melatonin. 05/01/2018 Appointment: Delmi Can WPtel: [facility] New Patient 05/01/2018 Patient Education: Patient Medication Summary Completed 05/01/2018 Care Plan: Referral Order SNOMED-CT : [id number] Pending 05/01/2018 Referral: Yesenia Mesa Referral Appointment [...]
--- OUTSIDE RECORDS SUMMARY | 2018-12-02 06:30 | XMS REPORT | CCD ---
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 Role Phone PP Unavailable CCM Unavailable Summary Purpose Interface Exchange Insurance Providers Payer name Policy type / Coverage type Covered alliance party ID Effective Begin Date Effective End Date [employer] [place] Medicare Part B [id number] Unknown Family history Mother Diagnosis Age At Onset Arthritis Unknown Cancer Unknown Father Diagnosis Age At Onset Coronary Artery Disease Unknown Alcoholism Unknown Social History Social History Element Codes Description Effective Dates Marital status Unknown Tami 05/01/2018 Number of children Unknown 1 05/01/2018 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/[address]: 6291908 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 1965 05/01/[address]: 656331453 Never drinks alcohol 05/01/2018 Allergies, Adverse Reactions, Alerts Substance Reaction Codes Entered Date Inactivated Date Status Tomatoes Unknown 05/01/2018 No Inactive Date Active * NO KNOWN DRUG ALLERGIES Unknown 05/01/2018 No Inactive Date Active Past Medical History Illness Codes Condition Status Onset Date Resolved Date Melena ICD-9: 578.1 ICD-10: K92.1 Active 07/23/2018 Unknown Diverticulitis of large intestine without perforation or abscess without bleeding ICD-9: 562.11 ICD-10: K57.32 Active 07/23/2018 Unknown Mixed hyperlipidemia ICD- 9: 272.2 ICD-10: E78.2 Active 06/05/2018 Unknown Cardiac [...] Problems Condition Codes Effective Dates Condition Status Melena ICD-9: 578.1 ICD-10: K92.1 07/23/2018 Active Diverticulitis of large intestine without perforation or abscess without bleeding ICD-9: 562.11 ICD-10: K57.32 07/23/2018 Active Mixed hyperlipidemia ICD- 9: 272.2 ICD-10: E78.2 06/05/2018 Active Cardiac murmur, [...] Fill Instructions trazodone 50 mg tablet RxNorm: 706287 1/2-1 Tablet(s) PO QHS as needed 08/30/2018 11/27/2018 Active trazodone 50 mg tablet RxNorm: 631786 1/2-1 Tablet(s) PO QHS 07/02/2018 07/01/2018 Inactive trazodone 50 mg tablet RxNorm: 611717 1/2-1 Tablet(s) PO QHS as needed 07/02/2018 08/29/2018 Inactive pravastatin 20 mg tablet RxNorm: 164995 1 Tablet(s) PO daily 06/05/2018 07/03/2018 Inactive folic acid 1 mg tablet RxNorm: 804123 1 Tablet(s) PO daily No Start Date Active magnesium oxide 250 mg tablet RxNorm: 405426 1 Tablet(s) PO daily No Start Date Active garlic 1,000 mg capsule RxNorm: 994669 1 Capsule(s) PO daily as needed No Start Date Active zinc 50 mg tablet RxNorm: 1 Tablet(s) PO daily No Start Date Active melatonin 10 mg tablet RxNorm: 3698602 1 Tablet(s) PO daily No Start Date Active Vitamin D3 5,000 unit tablet RxNorm: 559700 1 Tablet(s) PO daily No Start Date Active cyanocobalamin (vit B-12) 5,000 mcg sublingual tablet RxNorm: 758583 1 Tablet(s) SL daily No Start Date Active Medication Administered No Medication Administered data Immunizations No Immunization data Assessments Condition Codes Effective Dates Melena ICD-10: K92.1 ICD-9: 578.1 07/30/2018 Diverticulitis [...] Ord30 C/HDL 6.4 Ratio 05/02/2018 Comp Metabolic Udz638 NA 140 mEq/L 05/02/2018 Comp Metabolic Nra066 K 4.6 mEq/L 05/02/2018 Comp Metabolic Hcq722 CL 105 mEq/L 05/02/2018 Comp Metabolic Lit410 CO2 27.0 mEq/L 05/02/2018 Comp Metabolic Aco443 ANION GAP 13 05/02/2018 Comp Metabolic Oeb673 GLUCOSE 117 mg/dL 05/02/2018 Comp Metabolic Ttf772 Creat 1.0 mg/dL 05/02/2018 Comp Metabolic Kuu556 eGFR 80 ml/min/1.73m2 05/02/2018 Comp Metabolic Jmn866 BUN 17 mg/dL 05/02/2018 Comp Metabolic Cyo436 B/C Ratio 17.3 Ratio 05/02/2018 Comp Metabolic Ynd652 CALCIUM 9.6 mg/dL 05/02/2018 Comp Metabolic Wmh746 ALK PHOS 40 U/L 05/02/2018 Comp Metabolic Ian023 AST(SGOT) 19 U/L 05/02/2018 Comp Metabolic Nyv315 ALT(SGPT) 24 U/L 05/02/2018 Comp Metabolic Ohh891 BILI T 0.7 mg/dL 05/02/2018 Comp Metabolic Bjm262 ALBUMIN 4.2 g/dL 05/02/2018 Comp Metabolic Evo170 TPRO 6.4 g/dL 05/02/2018 Comp Metabolic Yjx503 GLOB 2.2 g/dL 05/02/2018 Comp Metabolic Ryx703 A/G Ratio 1.9 Ratio 05/02/2018 Comp Metabolic Ora515 Osmo 282 mOsmo 05/02/2018 Cbc With Differential [...] Date Vital 07/23/2018 Blood Pressure 1: 110/56 Code: 8480-6 BMI: 28.6 Code: 13188-4 Heart Rate 1: 85 bpm Height: 5'8" SpO2: 97% Weight: 188 lbs 06/05/2018 Blood Pressure 1: 142/66 Code: 8480-6 BMI: 30.0 Code: 21863-5 Heart Rate 1: 75 bpm Height: 5'8" SpO2: 98% Weight: 197 lbs 05/01/2018 Blood Pressure 1: 138/88 Code: 8480-6 BMI: 29.5 Code: 21483-9 Heart Rate 1: 74 bpm Height: 5'8" SpO2: 95% Weight: 194 lbs Functional Status No Functional Status data History of Present Illness Symptom Name Status Result Effective Date Notes Quality constant 07/23/2018 None Onset and Resolution [...] Codes Date EST. PATIENT, LEVEL III Diagnosis: Melena[ICD10: K92.1] Diagnosis: Diverticulitis of large intestine without perforation or abscess without bleeding[ICD10: K57.32] [facility] CPT-4: 64280 07/23/2018 ([id number]) 81341 EST. 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 Melena - will refer to Dr. Gonzalez for EGD/Colonoscopy 07/23/2018 Appointment: Dina Mehta WPtel: [facility] (15 min) Moderate 07/23/2018 Patient Education: Patient Medication Summary Completed 07/23/2018 Care Plan: Referral Order SNOMED-CT : [id number] Pending 07/23/2018 Visit Plan: Hyperlipidemia - pt [...] 20mg daily 06/05/2018 Appointment: Delmi Can WPtel: [address] [facility] (15 min) Moderate 06/05/2018 Patient Education: Patient [...] with melatonin. 05/01/2018 Appointment: Delmi Can WPtel: [facility] [facility] New Patient 05/01/2018 Patient Education: Patient Medication Summary Completed 05/01/2018 Care Plan: Referral Order SNOMED-CT : [id number] Pending 05/01/2018 Referral: Yesenia Mesa Referral Appointment [...]
--- OUTSIDE RECORDS SUMMARY | 2018-12-02 06:33 | XMS REPORT | Continuity of Care Document ---
Author Organization Unknown Address Unknown Allergies Active Description Code Type Severity Reaction Onset Reported/Identified Relationship to Patient Clinical Status Yes No Known Drug Allergies [id number] Drug Allergy Unknown N/A 07/27/2013 Medications There is no data. Problems Date Dx Coded Attending Type Code Diagnosis Diagnosed By 07/27/2013 APARNA OLSEN, LUIZA Pacheco Ot 569.3 RECTAL ANAL HEMORRHAGE 07/29/2013 BARRY OLSEN, TREVIN Mott Ot 530.11 REFLUX ESOPHAGITIS 07/29/2013 TREVIN REDDY MD Ot 530.3 ESOPHAGEAL STRICTURE 07/29/2013 BARRY OSLEN, TREVIN Mott Ot 535.40 OTH SPECIFIED GASTRITIS,W/O MENTION OF H 07/29/2013 TREVIN REDDY MD Ot 562.10 DIVERTICULOSIS COLON (W/O MENT OF HEMORR 07/29/2013 TREVIN REDDY MD Ot V12.72 PERSONAL HISTORY OF COLONIC POLYPS 08/01/2013 TREVIN REDDY MD Ot 562.10 DIVERTICULOSIS COLON (W/O MENT OF HEMORR 08/01/2013 TREVIN REDDY MD Ot 569.49 RECTAL ANAL DIS NEC 08/01/2013 TREVIN REDDY MD Ot V16.0 FAMILY HX-GI MALIGNANCY 08/20/2015 BARRY OLSEN, TREVIN Mott Ot V72.84 08/21/2015 MATA HAILE Ot I77.810 [...] ESSENTIAL (PRIMARY) HYPERTENSION 07/05/2018 SHARI HAZEL MD J Ot I35.0 NONRHEUMATIC AORTIC (VALVE) STENOSIS 07/05/2018 [...] MD Ot 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 07/22/2018 MARCO DURAN Ot K92.1 MELENA 07/22/2018 MARCO DURAN Ot Z79.82 RAKER BUFFING WHEEL (CURRENT) USE OF ASPIRIN 07/22/2018 BARRY OLSEN, TREVIN Mott Ot V72.84 EXAM PRE-OPERATIVE NOS 07/22/2018 ANKITA HEARN, MATA Ashley Ot 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 07/22/2018 ANKITA HEARN, MATA Ashley Ot Z13.9 ENCOUNTER FOR SCREENING, UNSPECIFIED 07/22/2018 SHARI HZAEL MD Ot E04.2 NONTOXIC MULTINODULAR GOITER 07/22/2018 [...] K92.1 MELENA 07/23/2018 MARCO DURAN Ot Z79.82 RAKER BUFFING WHEEL (CURRENT) USE OF ASPIRIN 07/24/2018 SHARI HAZEL MD Ot I10 ESSENTIAL (PRIMARY) HYPERTENSION 07/24/2018 SHARI HAZEL MD Ot I35.0 NONRHEUMATIC AORTIC (VALVE) STENOSIS 07/24/2018 SHARI HAZEL MD Ot 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 07/25/2018 MARCO DURAN Ot K92.1 MELENA 07/25/2018 MARCO DURAN Ot Z79.82 RAKER BUFFING WHEEL (CURRENT) USE OF ASPIRIN 07/25/2018 MARCO DURAN Ot 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 07/25/2018 MARCO DURAN Ot K92.1 MELENA 07/25/2018 ROGERMARCO Alonzo Ot Z79.82 SHELTER (CURRENT) USE OF ASPIRIN 08/01/2018 PRINCESS OLSEN, JEVON Ashley Ot Z01.818 ENCOUNTER FOR OTHER PREPROCEDURAL EXAMIN 08/10/2018 SHARI HAZEL MD Ot E04.2 NONTOXIC MULTINODULAR GOITER 08/10/2018 SHARI HAZEL MD Ot I10 ESSENTIAL (PRIMARY) HYPERTENSION 08/10/2018 SHARI HAZEL MD Ot I35.0 NONRHEUMATIC AORTIC (VALVE) STENOSIS 08/10/2018 SHARI HAZEL MD Ot 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 08/10/2018 SHARI HAZEL MD Ot 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 08/10/2018 SHARI HAZEL MD Ot I10 ESSENTIAL (PRIMARY) HYPERTENSION 08/10/2018 SHARI HAZEL MD Ot I35.0 NONRHEUMATIC AORTIC (VALVE) STENOSIS 08/10/2018 SHARI HAZEL MD Ot 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 08/13/2018 JEVON SÁNCHEZ MD Ot E78.00 PURE HYPERCHOLESTEROLEMIA, UNSPECIFIED 08/13/2018 JEVON SÁNCHEZ MD Ot I10 ESSENTIAL (PRIMARY) HYPERTENSION 08/13/2018 JEVON SÁNCHEZ MD Ot I35.0 NONRHEUMATIC AORTIC (VALVE) STENOSIS 08/13/2018 JEVON SÁNCHEZ MD Ot K20.9 ESOPHAGITIS, UNSPECIFIED 08/13/2018 JEVON SÁNCHEZ MD Ot K21.9 GASTRO-ESOPHAGEAL REFLUX DISEASE WITHOUT 08/13/2018 JEVON SÁNCHEZ MD Ot K31.89 OTHER DISEASES OF STOMACH AND DUODENUM 08/13/2018 PRINCESS OLSEN, JEVON Ashley Ot K57.30 DVRTCLOS OF LG INT W/O PERFORATION OR AB 08/13/2018 JEVON SÁNCHEZ MD Ot K63.5 POLYP OF COLON 08/13/2018 JEVON SÁNCHEZ MD Ot R01.1 CARDIAC MURMUR, UNSPECIFIED 08/13/2018 JEVON SÁNCHEZ MD Ot R19.7 DIARRHEA, UNSPECIFIED 08/13/2018 JEVON SÁNCHEZ MD Ot Z79.899 OTHER RAKER BUFFING WHEEL (CURRENT) DRUG THERAPY 08/16/2018 PRINCESS OLSEN, JEVON Ashley Ot E78.00 PURE HYPERCHOLESTEROLEMIA, UNSPECIFIED 08/16/2018 JEVON SÁNCHEZ MD Ot I10 ESSENTIAL (PRIMARY) HYPERTENSION 08/16/2018 JEVON SÁNCHEZ MD Ot I35.0 NONRHEUMATIC AORTIC (VALVE) STENOSIS 08/16/2018 JEVON SÁNCHEZ MD Ot K20.9 ESOPHAGITIS, UNSPECIFIED 08/16/2018 JEVON SÁNCHEZ MD Ot K21.9 GASTRO-ESOPHAGEAL REFLUX DISEASE WITHOUT 08/16/2018 PRINCESS OLSEN, JEVON Ashley Ot K31.89 OTHER DISEASES OF STOMACH AND DUODENUM 08/16/2018 JEVON SÁNCHEZ MD Ot K57.30 DVRTCLOS OF LG INT W/O PERFORATION OR AB 08/16/2018 JEVON SÁNCHEZ MD Ot K63.5 POLYP OF COLON 08/16/2018 JEVON SÁNCHEZ MD Ot R01.1 CARDIAC MURMUR, UNSPECIFIED 08/16/2018 JEVON SÁNCHEZ MD Ot R19.7 DIARRHEA, UNSPECIFIED 08/16/2018 JEVON SÁNCHEZ MD Ot Z79.899 OTHER SHELTER (CURRENT) DRUG THERAPY 09/24/2018 BARRY OLSEN, TREVIN Mott Ot V72.84 EXAM PRE-OPERATIVE NOS 09/24/2018 MATA HAILE Ot 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 09/24/2018 MATA HAILE Ot Z13.9 ENCOUNTER FOR SCREENING, UNSPECIFIED 09/24/2018 SHARI HAZEL MD Ot E04.2 NONTOXIC MULTINODULAR GOITER 09/24/2018 SHARI HAZEL MD Ot I10 ESSENTIAL (PRIMARY) HYPERTENSION 09/24/2018 SHARI HAZEL MD Ot I35.0 NONRHEUMATIC AORTIC (VALVE) STENOSIS 09/24/2018 SHARI HAZEL MD Ot 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 Results Test Result Range [id number] - 06/25/18 10:25 Serum or plasma urea [...] gravity of urine by test strip 1.025 1.016-1.022 Urine protein assay by test strip, semi-quantitative [...] sediment leukocyte count by microscopy (number/high power field) [HPF] NRG Bacteria detection in urine sediment [...] Automated erythrocyte mean corpuscular hemoglobin concentration measurement (mass/volume) 35 g/dL 32-36 Automated erythrocyte distribution width ratio 12.5 % 10.0- 14.5 Automated blood platelet count (count/volume) 177 10*3/uL [...] Blood monocytes automated count (number/volume) 0.8 10*3 0.0- 1.0 Automated eosinophil count 0.0 10*3/uL 0.0-0.3 Automated [...] Serum or plasma aspartate aminotransferase measurement (enzymatic activity/volume) 17 U/L 5-34 Serum or plasma alanine aminotransferase measurement (enzymatic activity/volume) 16 U/L 0-55 Serum or plasma protein measurement (mass/volume) 6.9 g/dL 6.4-8.2 Serum or plasma albumin measurement (mass/volume) 3.9 g/dL 3.2-4.5 CALCIUM CORRECTED 9.5 mg/dL 8.5-10.1 Encounters ACCT No. Visit Date/Time Discharge Status Pt. Type Provider Facility Loc./Unit Complaint [id number] 08/13/2018 09:54:00 08/13/2018 13:50:00 DIS Outpatient JEVON SÁNCHEZ MD [facility] ENDO BLOOD STOOLS/GERD/MELENA/DIARRHEA [id number] 08/01/2018 05:56:00 08/01/2018 14:28:00 DIS Outpatient JEVON SÁNCHEZ MD [facility] PREOP COLONOSCOPY/EGD [id number] 07/22/2018 19:28:00 07/23/2018 00:35:00 DIS Emergency ROGER MARCO MANAGER [employer]RATION [facility] ER BLOOD IN STOOL [id number] 07/22/2018 13:36:00 07/22/2018 14:20:00 DIS Emergency ROGERMARCO MANAGER [employer]RATION [facility] ER BLOOD IN STOOL [id number] 07/02/2018 08:11:00 07/02/2018 23:59:59 CLS Outpatient SHARI HAZEL MD [facility] CARD AORTIC STENOSIS,HTN [id number] 06/25/2018 10:18:00 06/25/2018 23:59:59 CLS Outpatient SHARI HAZEL MD [facility] RAD AORTIC STENOSIS [id number] 05/24/2018 15:10:00 05/24/2018 23:59:59 CLS Preadmit SHARI HAZEL MD [facility] RAD CAROTID STENOSIS,BILATERAL [id number] 05/24/2018 14:43:00 05/24/2018 23:59:59 CLS Preadmit SHARI HAZEL MD [facility] CARD CARDIAC MURMUR [id number] 08/20/2015 11:05:00 08/20/2015 23:59:59 CLS Outpatient ANKITA HEARN, MATA Ashley [facility] RAD DILATED THORACIC AORTA,SCREENING [id number] 08/01/2013 08:44:00 08/01/2013 11:35:00 DIS Outpatient TREVIN REDDY MD [facility] BLOOD IN STOOLS [id number] 07/31/2013 07:16:00 07/31/2013 23:59:59 CLS Outpatient TREVIN REDDY MD [facility] PREOP BLOOD IN STOOLS [id number] 07/29/2013 11:01:00 07/29/2013 15:00:00 DIS Outpatient TREVIN REDDY MD [facility] GI BLEED [id number] 07/27/2013 08:35:00 07/27/2013 10:44:00 DIS Emergency APARNA OLSEN, LUIZA Pacheco [facility] ER BLOODY STOOLS
--- NOTE | 2018-12-02 06:36 | ED GI ---
General Stated Complaint: DARK STOOLS Source of Information: Patient (VERY LIMITED HISTORIAN ABOUT PMH) History of Present Illness Date Seen by Provider: Dec 02, 2018 Time Seen by Provider: 06:24 Initial Comments PT ARRIVES VIA POV FROM HOME STATES HE HAS BEEN HAVING DARK STOOLS SINCE LAST NIGHT HAD DARK STOOLS AT 2155, 0445 AND 0542 TODAY NO ABDOMINAL PAIN NO NAUSEA/VOMITING NO FEVER NO DIZZINESS NO RECTAL PAIN PT IS NOT ON A BLOOD THINNER OR ASPIRIN HE HAS BEEN TAKING RX ADVIL COLD AND SINUS ( IBUPROFEN + PSEUDOEPHEDRINE) EVERY 4-6 HOURS FOR THE LAST FEW MONTHS FOR ONGOING ISSUES WITH SINUS DRAINAGE--IN ADDITION TO ANTIHISTAMINE AND NASAL SPRAY HAS BEEN HERE 3 OTHER TIMES FOR SAME SINCE 2013, LAST VISIT 06/2018 HAS HAD 3 ENDOSCOPIES--LAST ONE WAS EGD + COLONOSCOPY IN JULY OF THIS YEAR--HAD SMALL POLYP THAT WAS REMOVED AND WAS NOTED TO HAVE SEVERE DIVERTICULOSIS. OTHERWISE NO SIGNIFICANT FINDINGS . PT HAD BEEN PRESCRIBED A PPI IN THE PAST, BUT PT IS NOT TAKING IT PCP: DR. 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 HAZEL--HAS ALSO SEEN DR. LIRA FOR CV SURGERY EVALUATION FOR AORTIC VALVE DISEASE Allergies and Home Medications Allergies Coded Allergies: No Known Drug Allergies (Unverified , 07/27/13) Home Medications Cetirizine HCl 10 Mg Tablet, 10 MG PO DAILY, (Reported) Lisinopril 10 Mg Tablet, 10 MG PO DAILY, (Reported) Trazodone HCl 50 Mg Tablet, 50 MG PO HS, (Reported) Patient Home Medication List Home Medication List Reviewed: Yes Review of Systems Review of Systems Constitutional: no symptoms reported; No chills, No diaphoresis, No dizziness, No fever EENTM: Other (CHRONIC SINUS DRAINAGE/CONGESTION) Respiratory: No Symptoms Reported Cardiovascular: No Symptoms Reported Gastrointestinal: See HPI; Denies Abdominal Pain, Denies Constipated, Denies Diarrhea, Denies Nausea, Denies Poor Appetite, Denies Vomiting; Other (DARK STOOLS) Genitourinary: No Symptoms Reported Musculoskeletal: no symptoms reported Skin: no symptoms reported Psychiatric/Neurological: No Symptoms Reported Endocrine: No Symptoms Reported Hematologic/Lymphatic: No Symptoms Reported Past Yvajfxw-Pwchau-Etxrsd Hx Patient Social History Alcohol Use: Denies Use Recreational Drug Use: No Smoking Status: Never a Smoker (EXPERIMENTED TEEN. ) 2nd Hand Smoke Exposure: No Recent Foreign Travel: No Contact w/Someone Who Travel: No Recent Hopitalizations: No Immunizations Up To Date PED Vaccines UTD: No Date of Pneumonia Vaccine: Mar 03, 2017 Date of Influenza Vaccine: Mar 29, 2018 Seasonal Allergies Seasonal Allergies: No Past Medical History Surgeries: Yes (EGD'S/COLONOSCOPIES) Respiratory: No Cardiac: Yes (ASVD; AORTIC STENOSIS) Heart Murmur, High Cholesterol, Hypertension, Valvular Heart Disease Neurological: No Genitourinary: No Gastrointestinal: Yes Gastroesophageal Reflux, Gastrointestinal Bleed, Diverticulosis, Polyps Musculoskeletal: No Endocrine: No HEENT: No Cancer: No Psychosocial: No Integumentary: No Blood Disorders: No Physical Exam Vital Signs Vital Signs - First Documented 12/02/18 06:23 Temp 97.1 Pulse 82 Resp 18 B/P (MAP) 119/92 (101) Pulse Ox 97 O2 Delivery Room Air Capillary Refill : Height/Weight/BMI Height: 5'7.00" Weight: 188lbs. 0.0oz. 85.126523np; 29.4 BMI Method:Stated General Appearance: WD/WN, no apparent distress, other (WALKS AND MOVES QUICKLY WITHOUT DIFFICULTY. DOES NOT APPEAR TO BE IN ANY DISCOMFORT OR DISTRESS) Respiratory: normal breath sounds, no respiratory distress, no accessory muscle use Cardiovascular: regular rate, rhythm, no edema, no JVD, systolic murmur Gastrointestinal: normal bowel sounds, non tender, soft, no organomegaly, no pulsatile mass Extremities: normal inspection, no pedal edema, normal capillary refill Back: no CVA tenderness Neurologic/Psychiatric: chaplaincy II-XII nml as tested, no motor/sensory deficits, alert, normal mood/affect, oriented x 3 Skin: normal color, warm/dry Progress/Results/Core Measures Results/Orders Lab Results Laboratory Tests Test 12/02/18 06:30 Range/Units White Blood Count 9.3 4.3-11.0 10^3/uL Red Blood Count 5.01 4.35-5.85 10^6/uL Hemoglobin 14.8 13.3-17.7 G/DL Hematocrit 43 40-54 % Mean Corpuscular Volume 85 80-99 FL Mean Corpuscular Hemoglobin 30 25-34 PG Mean Corpuscular Hemoglobin Concent 35 32-36 G/DL Red Cell Distribution Width 13.7 10.0-14.5 % Platelet Count 152 130-400 10^3/uL Mean Platelet Volume 12.2 H 7.4-10.4 FL Neutrophils (%) (Auto) 68 42-75 % Lymphocytes (%) (Auto) 22 12-44 % Monocytes (%) (Auto) 9 0-12 % Eosinophils (%) (Auto) 1 0-10 % Basophils (%) (Auto) 0 0-10 % Neutrophils # (Auto) 6.4 1.8-7.8 X 10^3 Lymphocytes # (Auto) 2.0 1.0-4.0 X 10^3 Monocytes # (Auto) 0.8 0.0-1.0 X 10^3 Eosinophils # (Auto) 0.1 0.0-0.3 10^3/uL Basophils # (Auto) 0.0 0.0-0.1 10^3/uL Prothrombin Time 13.5 12.2-14.7 SEC INR Comment 1.0 0.8-1.4 Activated Partial Thromboplast Time 27 24-35 SEC Sodium Level 139 135-145 MMOL/L Potassium Level 4.2 3.6-5.0 MMOL/L Chloride Level 104 98-107 MMOL/L Carbon Dioxide Level 22 21-32 MMOL/L Anion Gap 13 5-14 MMOL/L Blood Urea Nitrogen 26 H 7-18 MG/DL Creatinine 0.95 0.60-1.30 MG/DL Estimat Glomerular Filtration Rate > 60 BUN/Creatinine Ratio 27 Glucose Level 102 70-105 MG/DL Calcium Level 9.5 8.5-10.1 MG/DL Corrected Calcium 9.4 8.5-10.1 MG/DL Magnesium Level 2.1 1.8-2.4 MG/DL Total Bilirubin 0.5 0.1-1.0 MG/DL Aspartate Amino Transf (AST/SGOT) 18 5-34 U/L Alanine Aminotransferase (ALT/SGPT) 17 0-55 U/L Alkaline Phosphatase 43 40-136 U/L Total Protein 6.6 6.4-8.2 GM/DL Albumin 4.1 3.2-4.5 GM/DL My Orders Orders - KARL JONES DO Ed Iv/Invasive Line Start (12/02/18 06:23) Monitor-Rhythm Ecg Trace Only (12/02/18 06:23) Cbc With Automated Diff (7/7/19 06:23) Comprehensive Metabolic Panel (12/02/18 06:23) Magnesium (12/02/18 06:23) Protime With Inr (12/02/18 06:23) Partial Thromboplastin Time (12/02/18 06:23) Ua Culture If Indicated (12/02/18 06:23) Ed Iv/Invasive Line Start (12/02/18 06:23) Ns Iv 1000 Ml (Sodium Chloride 0.9%) (12/02/18 06:23) Pantoprazole Injection (Protonix Injecti (12/02/18 07:15) Medications Given in ED Current Medications Medications Dose Ordered Sig/Florinda Route Start Time Stop Time Status Last Admin Dose Admin Sodium Chloride 1,000 ml @ 0 mls/hr Q0M ONCE IV 12/02/18 06:23 12/02/18 06:25 DC 12/02/18 06:36 0 MLS/HR Vital Signs/I&O 12/02/18 06:23 Temp 97.1 Pulse 82 Resp 18 B/P (MAP) 119/92 (101) Pulse Ox 97 O2 Delivery Room Air Progress Progress Note : Progress Note NO STOOLS OR ANY SYMPTOMS DURING ER STAY ADVISED OF NEED FOR ANOTHER EGD/COLONOSCOPY--PT VERY ADAMANTLY STATES HE WILL NEVER HAVE EITHER OF THOSE EVER AGAIN AND DOES NOT NEED REFERRAL TO GI/SURGEON BECAUSE HE WILL NOT HAVE THE TESTS Departure Impression Primary Impression: Melena Additional Impressions: CHRONIC NSAID USE Chronic sinus complaints Disposition: 01 HOME, SELF-CARE Condition: Stable Departure-Patient Inst. Referrals: CARMELA HAIDER MD (PCP/Family) Primary Care Physician Patient Instructions: Bloody Stools, Adult (DC), Seasonal Allergies (DC) Add. Discharge Instructions: STOP ADVIL COLD AND SINUS STOP YOUR CURRENT ANTIHISTAMINE YOU MAY CONTINUE YOUR STEROID NASAL SPRAY NO IBUPROFEN, ASPIRIN OR NAPROXEN/ALEVE CLEAR LIQUIDS--WATER, BROTH, JELLO, GATORADE BRATS DIET--BANANAS, RICE, APPLESAUCE, TOAST, SALTINES FOLLOW UP WITH DR. HAIDER IN 1-2 DAYS, RETURN TO ER IF WORSE Scripts Loratadine/Pseudoephedrine (Claritin-D 12 Hour Tablet) 1 Each Tab.er.12h 1 EACH PO BID for Congestion, #30 TAB Prov: KARL JONES DO 12/02/18 Sucralfate (Carafate) 1 Gm Tablet 1 GM PO QIDACHS, #60 TAB Prov: KARL JONES DO 12/02/18 Pantoprazole Sodium (Protonix) 40 Mg Tablet.dr 40 MG PO DAILY, #15 TAB Prov: KARL JONES DO 12/02/18 KARL JONES DO Dec 02, 2018 06:36
[2018-12-02] MEDS ORDERED: ATOR10TA66 (06:42)
[2018-12-02] MEDS ORDERED: [UNRECOGNIZED DRUG - OTHER] (06:42)
[2018-12-02] MEDS ORDERED: MONT10TA24 (06:42)
[2018-12-02 06:48] LABS: BASOPHILS % (AUTO) 0 % (0-10); EOSINOPHILS # (AUTO) 0.1 10^3/uL (0.0-0.3); EOSINOPHILS % (AUTO) 1 % (0-10); HEMATOCRIT 43 % (40-54); HEMOGLOBIN 14.8 G/DL (13.3-17.7); LYMPHOCYTES % (AUTO) 22 % (12-44); MEAN CORPUSCULAR HEMOGLOBIN 30 PG (25-34); MEAN CORPUSCULAR HGB CONC 35 G/DL (32-36); MEAN CORPUSCULAR VOLUME 85 FL (80-99); MEAN PLATELET VOLUME 12.2 FL (7.4-10.4); MONOCYTES # (AUTO) 0.8 X 10^3 (0.0-1.0); MONOCYTES % (AUTO) 9 % (0-12); NEUTROPHILS # (AUTO) 6.4 X 10^3 (1.8-7.8); NEUTROPHILS % (AUTO) 68 % (42-75); PLATELET COUNT 152 10^3/uL (130-400); RED CELL DISTRIBUTION WIDTH 13.7 % (10.0-14.5); WHITE BLOOD COUNT 9.3 10^3/uL (4.3-11.0)
[2018-12-02 06:56] LABS: PROTHROMBIN TIME PATIENT 13.5 SEC (12.2-14.7)
[2018-12-02 07:04] LABS: ALANINE AMINOTRANSFERASE 17 U/L (0-55); ALBUMIN 4.1 GM/DL (3.2-4.5); ALKALINE PHOSPHATASE 43 U/L (40-136); BILIRUBIN,TOTAL 0.5 MG/DL (0.1-1.0); BUN/CREATININE RATIO 27; CALCIUM 9.5 MG/DL (8.5-10.1); CARBON DIOXIDE 22 MMOL/L (21-32); CHLORIDE 104 MMOL/L (98-107); CREATININE SERUM 0.95 MG/DL (0.60-1.30); GFR ESTIMATED > 60; GLUCOSE 102 MG/DL (70-105); MAGNESIUM 2.1 MG/DL (1.8-2.4); POTASSIUM 4.2 MMOL/L (3.6-5.0); SODIUM 139 MMOL/L (135-145); TOTAL PROTEIN 6.6 GM/DL (6.4-8.2)
[2018-12-02] MEDS ORDERED: PANTOPRAZOLE 40 MG (PROTONIX) VIAL IV ONE (07:15)
[2018-12-02] MEDS ORDERED: PANT40TA2 PO (07:20)
[2018-12-02] MEDS ORDERED: SUCR1TAB36 PO (07:20)
[2018-12-02] MEDS ORDERED: LORA1TAB59 PO (07:20)
[2018-12-02 07:43] VITALS: BP 148/81
== END 2018-12-02 07:43 | disposition home or self-care (01) ==
LOC: EDUNIT# 06:17 → ER 06:19
DX: K92.1 Melena (principal); R09.81 Nasal congestion; I25.10 Atherosclerotic heart disease of native coronary artery without angina pectoris; I10 Essential (primary) hypertension; E78.00 Pure hypercholesterolemia, unspecified; K21.9 Gastro-esophageal reflux disease without esophagitis; Z87.19 Personal history of other diseases of the digestive system; Z86.010 Personal history of colon polyps; Z79.1 Long term (current) use of non-steroidal anti-inflammatories (NSAID)
CPT/HCPCS: 36415; 80053; 83735; 85025; 85610; 85730; 93041; 96374

== ENCOUNTER → 2019-04-16 | Outpatient (CLI) | payer MEDICARE, OTHER ==
[~2019-04-16] MED LIST changes: +ATOR10TA66; +LORA1TAB59 PO; +MONT10TA24; -ROSU5TAB12 PO; +ROSU5TAB13 PO; +SUCR1TAB36 PO; +[UNRECOGNIZED DRUG - OTHER]
== END ==
LOC: CARD 11:25
PROVIDERS: ATTEND Internal Medicine Cardiovascular Disease
DX: I08.3 Combined rheumatic disorders of mitral, aortic and tricuspid valves (principal); I77.810 Thoracic aortic ectasia; I65.29 Occlusion and stenosis of unspecified carotid artery; I10 Essential (primary) hypertension
CPT/HCPCS: 93306

== ENCOUNTER → 2022-10-13 | Outpatient (CLI) | payer MEDICARE, OTHER ==
[~2022-10-13] MED LIST changes: -LISI10TA2 PO; +LISI10TA25 PO; +MONT-40; -MONT10TA24; -TRAZ-222 PO; +TRZ50T PO
== END ==
LOC: CARD 13:59
PROVIDERS: ATTEND Family Medicine
DX: I35.0 Nonrheumatic aortic (valve) stenosis (principal); I51.7 Cardiomegaly
CPT/HCPCS: 93306

== ENCOUNTER 2023-01-25 11:36 | Outpatient (RCR) | payer MEDICARE, OTHER | END 2023-01-26 | disposition home or self-care (01) | LOC: CR 11:36 | PROVIDERS: ATTEND Internal Medicine Interventional Cardiology | DX: Z29.8 Encounter for other specified prophylactic measures (principal); Z95.2 Presence of prosthetic heart valve | CPT/HCPCS: 93798 ==

== ENCOUNTER 2023-02-24 11:11 | Outpatient (RCR) | payer MEDICARE, OTHER | END 2023-02-25 | disposition home or self-care (01) | LOC: CR 11:11 | PROVIDERS: ATTEND Internal Medicine Interventional Cardiology | DX: Z29.8 Encounter for other specified prophylactic measures (principal); Z95.2 Presence of prosthetic heart valve | CPT/HCPCS: 93798 ==

== ENCOUNTER 2023-03-03 11:05 | Outpatient (RCR) | payer MEDICARE, OTHER | END 2023-03-28 | disposition home or self-care (01) | LOC: CR 11:05 | PROVIDERS: ATTEND Internal Medicine Interventional Cardiology | DX: Z29.89 Encounter for other specified prophylactic measures (principal); Z95.2 Presence of prosthetic heart valve | CPT/HCPCS: 93798 ==